=== PATIENT | male | born 1975 | race African-American/Black ===

== ENCOUNTER 2018-09-19 16:39 | Inpatient (IN) | payer OTHER ==
[2018-09-19 18:15] VITALS: BMI 21.4
--- NOTE | 2018-09-19 18:46 | HP ---
COWS - Scale Resting Pulse: 1= [place] 81-100 Sweatin=Flushed/Facial Moisture Restless Observation: 1= Difficult to Sit Still Pupil Size: 0= Normal to Room Light Bone or Joint Aches: 2= Severe Diffuse Aches Runny Nose/ Eye Tearin= Runny Nose/Eyes GI Upset > 30mins: 1= Stomach Cramp Tremor Observation: 2= Slight Tremor Visible Yawning Observation: 2= >3x During Session Anxiety or Irritability: 2=Irritable/Anxious Goose Flesh Skin: 3=Piloerection COWS Score: 18 CIWA Score Nausea/Vomitin-Mild Nausea/No Vomiting Muscle Tremors: 4-Moderate,w/Arms Extend Anxiety: 3 Agitation: 3 Paroxysmal Sweats: 3 Orientation: 0-Oriented Tacttile Disturbances: 0-None Auditory Disturbances: 0-None Visual Disturbances: 0-None Headache: 1-Very Mild CIWA-Ar Total Score: 15 - Admission Criteria OASAS Guidelines: Admission for Medically Managed Detox: Requires at least one of the followin. CIWA greater than 12 2. Seizures within the past 24 hours 3. Delirium tremens within the past 24 hours 4. Hallucinations within the past 24 hours 5. Acute intervention needed for co occurring medical disorder 6. Acute intervention needed for co occurring psychiatric disorder 7. Severe withdrawal that cannot be handled at a lower level of care (continued vomiting, continued diarrhea, abnormal vital signs) requiring intravenous medication and/or fluids 8. Admission ROS S - HPI Chief Complaint: I need to stop and get my life back. Allergies/Adverse Reactions: Allergies Allergy/AdvReac Type Severity Reaction Status Date / Time No Known Allergies Allergy Verified 05/15/16 11:16 History of Present Illness: pt is a 43yrold male with a history of heroin and alcohol dependence seeking detox for treatment. Exam Limitations: No Limitations - Ebola screening Have you traveled outside of the country in the last 21 days: No (N) Have you had contact with anyone from an Ebola affected area: No Have you been sick,other than usual withdrawal symptoms: No Do you have a fever: No - Review of Systems Constitutional: Chills, Diaphoresis, Loss of Appetite, Night Sweats, Changes in sleep EENT: reports: Tearing, Nose Congestion Respiratory: reports: No Symptoms reported Cardiac: reports: Lightheadedness GI: reports: Constipated, Diarrhea, Nausea, Poor Appetite, Poor Fluid Intake : reports: No Symptoms Reported Musculoskeletal: reports: Back Pain Integumentary: reports: Flushing, Sweating Neuro: reports: Tingling, Tremors Endocrine: reports: Excessive Sweating, Flushing, Intolerance to Cold, Intolerance to Heat Hematology: reports: No Symptoms Reported Psychiatric: reports: Judgement Intact, Mood/Affect Appropiate, Orientated x3, Agitated, Anxious Other Systems: Reviewed and Negative Patient History - Patient Medical History Hx Anemia: No Hx Asthma: Yes (albuterol) Hx Chronic Obstructive Pulmonary Disease (COPD): No Hx Cancer: No Hx Cardiac Disorders: No Hx Congestive Heart Failure: No Hx Hypertension: No Hx Hypercholesterolemia: No Hx Pacemaker: No HX Cerebrovascular Accident: No Hx Seizures: No Hx Dementia: No Hx Diabetes: No Hx Gastrointestinal Disorders: No Hx Liver Disease: No Hx Genitourinary Disorders: No Hx Sexually Transmitted Disorders: No Hx Renal Disease (ESRD): No Hx Thyroid Disease: Yes (hyperthryoid - not treated) Hx Human Immunodeficiency Virus (HIV): Yes (not taking any meds ) Hx Hepatitis C: No (negative) Hx Depression: No Hx Suicide Attempt: No (denies) Hx Bipolar Disorder: No Hx Schizophrenia: No - Patient Surgical History Past Surgical History: Yes Hx Appendectomy: Yes (1983) - PPD History Previous Implant?: Yes Documented Results: Negative w/o proof PPD to be Administered?: Yes - Reproductive History Patient is a Female of Child Bearing Age (11 -55 yrs old): No - Smoking Cessation Smoking history: Current every day smoker Have you smoked in the past 12 months: Yes Aproximately how many cigarettes per day: 10 Hx Chewing Tobacco Use: No Initiated information on smoking cessation: Yes 'Breaking Loose' booklet given: 09/19/18 - Substance & Tx. History Hx Alcohol Use: Yes Hx Substance Use: Yes Substance Use Type: Alcohol, Cocaine, Heroin Hx Substance Use Treatment: Yes (last detox [facility] 2monthd ago) - Substances Abused Heroin Route: Inhalation Frequency: Daily Amount used: 10 bags Age of first use: 27 Date of Last Use: 09/18/18 Alcohol Route: Oral Frequency: Daily Amount used: 1-4 pints vodka; 2 40oz beer Age of first use: 10 Date of Last Use: 02/19/19 Family Disease History - Family Disease History Family Disease History: CA: Sister (), Other: Sister Admission Physical Exam [facility] - Vital Signs Vital Signs: Vital Signs - 24 hr 09/19/18 18:12 Temperature 98.7 F Pulse Rate 81 Respiratory 18 Rate Blood Pressure 119/75 - Physical General Appearance: Yes: Appropriately Dressed, Tremorous, Irritable, Sweating, Anxious HEENTM: Yes: Hearing grossly Normal, Normal Voice, Nasal Congestion, Rhinorrhea Respiratory: Yes: Normal Breath Sounds, Rhonchi, Wheezing Neck: Yes: No masses,lesions,Nodules Breast: Yes: Within Normal Limits Cardiology: Yes: Regular Rhythm, Regular Rate, S1, S2 Abdominal: Yes: Normal Bowel Sounds, Non Tender Genitourinary: Yes: Within Normal Limits Back: Yes: Normal Inspection Musculoskeletal: Yes: full range of Motion Extremities: Yes: Normal Capillary Refill, Normal Inspection, Tremors Neurological: Yes: Fully Oriented, Alert, Normal Response Integumentary: Yes: Normal Color, Diaphoresis Lymphatic: Yes: Within Normal Limits - Diagnostic (1) Asthma Current Visit: Yes Status: Chronic Qualifiers: Asthma severity: mild Asthma complication type: uncomplicated (2) Cocaine dependence Current Visit: Yes Status: Chronic Qualifiers: Substance use status: uncomplicated Qualified Code(s): F14.20 - Cocaine dependence, uncomplicated (3) HIV (human immunodeficiency virus infection) Current Visit: Yes Status: Chronic Qualifiers: HIV symptom status: unspecified Qualified Code(s): B20 - Human immunodeficiency virus [HIV] disease Comment: non compliant with medication. last time taken was a month ago (4) Hyperthyroidism Current Visit: No Status: Inactive (5) Nicotine dependence Current Visit: Yes Status: Chronic Qualifiers: Nicotine product type: cigarettes Substance use status: uncomplicated Qualified Code(s): F17.210 - Nicotine dependence, cigarettes, uncomplicated (6) Opioid dependence with withdrawal Current Visit: Yes Status: Chronic Cleared for Admission [facility] - Detox or Rehab [facility] Level of Care: Medically Managed Detox Regimen/Protocol: Methadone/Librium S Breath Alcohol Content Breath Alcohol Content: 0.019 Urine Drug Screen - Results Drug Screen Negative: No Urine Drug Screen Results: THC-Marijuana, KENDRA-Cocaine, OPI-Opiates, BZO- Benzodiazepines, BUP-Suboxone Inpatient Rehab Admission - Rehab Decision to Admit Inpatient rehab admission?: No
[2018-09-19] MEDS ORDERED: MENTHOL/PHENOL 1 EACH UD MM PRN (18:51)
[2018-09-19] MEDS ORDERED: MAGNESIUM CITRATE 300 ML BOTTLE PO PRN (18:51)
[2018-09-19] MEDS ORDERED: MAG HYDROX/AL HYDROX/SIMETH 30 ML UNIT-DOSE CUP PO PRN (18:51)
[2018-09-19] MEDS ORDERED: P-EPHED 60MG/TRIPROLIDI 2.5MG TABLET PO PRN (18:51)
[2018-09-19] MEDS ORDERED: MAGNESIUM HYDROX 2400MG/30ML ORAL SUSPENSION 30 ML CUP PO PRN (18:51)
[2018-09-19] MEDS ORDERED: guaiFENesin/D-METHORPHAN HB 10 ML UNIT-DOSE CUPS PO PRN (18:51)
[2018-09-19] MEDS ORDERED: chlordiazePOXIDE HCL 25 MG CAPSULE PO PRN (18:51)
[2018-09-19] MEDS ORDERED: NICOTINE POLACRILEX 4 MG GUM BC PRN (18:51)
[2018-09-19] MEDS ORDERED: LOPERAMIDE HCL 2 MG CAPSULE PO PRN (18:51)
[2018-09-19] MEDS ORDERED: ALBUTEROL SO4 2.5/IPRATROPIUM 0.5 INH SOL 3 ML VIAL.NEB. NEB ONE (18:53)
[2018-09-19] MEDS: THIAMINE HCL 100 MG TABLET (FP) PO SCH (21:43)
[2018-09-19] MEDS ORDERED: METHADONE HCL 10 MG TABLET (FOR DETOX USE ONLY) PO ONE ×2 (21:45→23:00)
[2018-09-19] MEDS ORDERED: chlordiazePOXIDE HCL 25 MG CAPSULE PO ONE (21:45)
[2018-09-19] MEDS ORDERED: MELATONIN 5 MG TABLETS PO PRN (22:00)
[2018-09-19] MEDS: chlordiazePOXIDE HCL 25 MG CAPSULE PO SCH (22:57)
[2018-09-20] MEDS: hydrOXYzine PAMOATE 50 MG CAPSULE (FP) PO PRN ×2 (01:11→23:30)
[2018-09-20] MEDS: chlordiazePOXIDE HCL 25 MG CAPSULE PO SCH ×4 (05:44→22:15)
[2018-09-20] MEDS ORDERED: METHADONE HCL 10 MG TABLET (FOR DETOX USE ONLY) PO SCH (10:00)
[2018-09-20] MEDS: NICOTINE 21 MG/24 HOURS TOPICAL PATCH TD SCH (10:05)
[2018-09-20] MEDS: PRENATAL VITAMINS W/ FOLIC ACID TABLET (FP) PO SCH (10:05)
[2018-09-20 10:55] LABS: HEMATOCRIT 35.4 % (35.4-49); HEMOGLOBIN 12.2 GM/dL (11.7-16.9); MCH 29.9 pg (25.7-33.7); MCHC 34.3 g/dl (32.0-35.9); MEAN PLT VOLUME 8.3 fl (7.5-11.1); PLATELET COUNT 256 K/MM3 (134-434); RBC 4.07 M/mm3 (4.00-5.60); RDW 15.7 % (11.9-15.9)
[2018-09-20 10:58] LABS: ALBUMIN 3.1 g/dl (3.4-5.0); ALK PHOS 106 U/L (45-117); ANION GAP 8 MMOL/L (8-16); BILIRUBIN,TOTAL 0.2 mg/dL (0.2-1); BLOOD UREA NITROGEN 18 mg/dL (7-18); CALCIUM 8.5 mg/dL (8.5-10.1); CHLORIDE 109 mmol/L (98-107); CO2 27 mmol/L (21-32); GLUCOSE,RANDOM 91 mg/dL (74-106); POTASSIUM 3.7 mmol/L (3.5-5.1); SGOT/AST 13 U/L (15-37); SGPT/ALT 22 U/L (13-61); SODIUM 143 mmol/L (136-145); TOT PROT 6.7 g/dl (6.4-8.2)
[2018-09-20] MEDS ORDERED: GABAPENTIN 100 MG CAPSULE (FP) PO ONE (11:30)
--- NOTE | 2018-09-20 11:41 | PN ---
S CIWA - CIWA Score Nausea/Vomitin-No Nausea/No Vomiting Muscle Tremors: 4-Moderate,w/Arms Extend Anxiety: 4-Mod. Anxious/Guarded Agitation: 4-Moderately Restless Paroxysmal Sweats: 3 Orientation: 0-Oriented Tacttile Disturbances: 0-None Auditory Disturbances: 0-None Visual Disturbances: 0-None Headache: 0-None Present CIWA-Ar Total Score: 15 BHS COWS - Scale Resting Pulse: 1= [place] 81-100 Sweatin=Flushed/Facial Moisture Restless Observation: 1= Difficult to Sit Still Pupil Size: 0= Normal to Room Light Bone or Joint Aches: 2= Severe Diffuse Aches Runny Nose/ Eye Tearin= Nasal Congestion GI Upset > 30mins: 0= None Tremor Observation of Outstretched Hands: 2= Slight Tremor Visible Yawning Observation: 2= >3x During Session Anxiety or Irritability: 2=Irritable/Anxious Goose Flesh Skin: 0=Smooth Skin COWS Score: 13 S Progress Note (SOAP) Subjective: muscle spasm sweats shakes interrupted sleep body aches insomnia Objective: 09/20/18 11:40 Vital Signs Temperature 97.3 F L 09/20/18 09:41 Pulse Rate 95 H 09/20/18 09:41 Respiratory Rate 18 09/20/18 09:41 Blood Pressure 113/65 09/20/18 09:41 O2 Sat by Pulse Oximetry (%) Laboratory Tests 09/20/18 09/20/18 09/20/18 08:00 08:00 08:00 WBC 4.0 RBC 4.07 Hgb 12.2 Hct 35.4 MCV 87.0 MCH 29.9 MCHC 34.3 RDW 15.7 Plt Count 256 D MPV 8.3 Sodium 143 Potassium 3.7 Chloride 109 H Carbon Dioxide 27 Anion Gap 8 BUN 18 Creatinine 1.0 Creat Clearance w eGFR > 60 Random Glucose 91 Calcium 8.5 Total Bilirubin 0.2 AST 13 L ALT 22 Alkaline Phosphatase 106 Total Protein 6.7 Albumin 3.1 L RPR Titer Nonreactive aaox3 ambulating no acute distress Assessment: 09/20/18 11:40 withdrawal sx Plan: continue detox increase fluids trazadone 50mg qhs
[2018-09-20] MEDS: GABAPENTIN 100 MG CAPSULE (FP) PO SCH ×2 (13:33→22:16)
[2018-09-20] MEDS: ALBUTEROL SO4 2.5/IPRATROPIUM 0.5 INH SOL 3 ML VIAL.NEB. NEB PRN ×2 (14:12→20:27)
[2018-09-20] MEDS: IBUPROFEN 400 MG TABLET (FP) PO PRN (17:45)
[2018-09-20] MEDS: THIAMINE HCL 100 MG TABLET (FP) PO SCH (22:15)
[2018-09-21] MEDS: GABAPENTIN 100 MG CAPSULE (FP) PO SCH ×3 (05:40→22:18)
[2018-09-21] MEDS: chlordiazePOXIDE HCL 25 MG CAPSULE PO SCH ×3 (05:40→17:24)
[2018-09-21] MEDS: PRENATAL VITAMINS W/ FOLIC ACID TABLET (FP) PO SCH (10:06)
[2018-09-21] MEDS: METHADONE HCL 5 MG TABLET (FOR DETOX USE ONLY) PO SCH (10:07)
[2018-09-21] MEDS: NICOTINE 21 MG/24 HOURS TOPICAL PATCH TD SCH (10:08)
--- NOTE | 2018-09-21 11:01 | PN ---
[facility] CIWA - CIWA Score Nausea/Vomitin-No Nausea/No Vomiting Muscle Tremors: 3 Anxiety: 3 Agitation: 3 Paroxysmal Sweats: 3 Orientation: 0-Oriented Tacttile Disturbances: 0-None Auditory Disturbances: 0-None Visual Disturbances: 0-None Headache: 0-None Present CIWA-Ar Total Score: 12 BHS COWS - Scale Resting Pulse: 1= [place] 81-100 Sweatin=Flushed/Facial Moisture Restless Observation: 1= Difficult to Sit Still Pupil Size: 0= Normal to Room Light Bone or Joint Aches: 1= Mild Discomfort Runny Nose/ Eye Tearin= None GI Upset > 30mins: 1= Stomach Cramp Tremor Observation of Outstretched Hands: 2= Slight Tremor Visible Yawning Observation: 2= >3x During Session Anxiety or Irritability: 2=Irritable/Anxious Goose Flesh Skin: 0=Smooth Skin COWS Score: 12 S Progress Note (SOAP) Subjective: sweats body aches interrupted sleep Objective: 09/21/18 11:01 Vital Signs Temperature 98.2 F 09/21/18 09:30 Pulse Rate 87 09/21/18 09:30 Respiratory Rate 18 09/21/18 09:30 Blood Pressure 136/85 09/21/18 09:30 O2 Sat by Pulse Oximetry (%) Laboratory Tests 09/20/18 09/20/18 09/20/18 08:00 08:00 08:00 WBC 4.0 RBC 4.07 Hgb 12.2 Hct 35.4 MCV 87.0 MCH 29.9 MCHC 34.3 RDW 15.7 Plt Count 256 D MPV 8.3 Sodium 143 Potassium 3.7 Chloride 109 H Carbon Dioxide 27 Anion Gap 8 BUN 18 Creatinine 1.0 Creat Clearance w eGFR > 60 Random Glucose 91 Calcium 8.5 Total Bilirubin 0.2 AST 13 L ALT 22 Alkaline Phosphatase 106 Total Protein 6.7 Albumin 3.1 L RPR Titer Nonreactive aaox3 ambulating no acute distress Assessment: 09/21/18 11:01 withdrawal sx Plan: continue detox increase fluids
--- NOTE | 2018-09-21 11:33 | CONSULT ---
[facility] Psychiatric Consult - Data Date of interview: 09/21/18 Admission source: [facility] Identifying data: This is a 43 years old male, single father of two, unemployed , homeless, on PA support, with no psychiatric hospitalization history, with a history of heroin, cocaine and alcohol, nicotine dependence, is reporting withdrtawal symptoms and seeking detox for treatment. Substance Abuse History: - Smoking Cessation. Smoking history: Current every day smoker. Have you smoked in the past 12 months: Yes. Aproximately how many cigarettes per day: 10. Hx Chewing Tobacco Use: No. Initiated information on smoking cessation: Yes. 'Breaking Loose' booklet given: 09/19/18. - Substance & Tx. History. Hx Alcohol Use: Yes. Hx Substance Use: Yes. Substance Use Type : Alcohol, Cocaine, Heroin. Hx Substance Use Treatment: Yes (last detox [facility] 2monthd ago). - Substances Abused. Heroin. Route: Inhalation. Frequency: Daily. Amount used: 10 bags. Age of first use: 27. Date of Last Use: . Alcohol. Route: Oral. Frequency: Daily. Amount used: 1-4 pints vodka ; 2 40oz beer. Age of first use: 10. Date of Last Use: 09/19/18 Medical History: Asthma, Hyperthyroidism, HIV+ Psychiatric History: Patient reports history of anxiety and severe insomnia. Reports no psychiatric hospitalization history, reports taking prior to amdiions Seroquel 200mg po qhs, denies suicidal, homicidal history. Physical/Sexual Abuse/Trauma History: Denies Additional Comment: Seroquel 100mg poqd. Seroquel 200mg po qhs Mental Status Exam - Mental Status Exam Alert and Oriented to: Person Cognitive Function: Fair Patient Appearance: Unkempt Mood: Anxious, Irritable Affect: Labile Patient Behavior: Impulsive, Talkative, Cooperative, Agitated Speech Pattern: Excessive Voice Loudness: Mildly Loud Thought Process: Goal Oriented Thought Disorder: Being Controlled Hallucinations: Denies Suicidal Ideation: Denies Homicidal Ideation: Denies Insight/Judgement: Fair Sleep: Difficulty falling asleep Appetite: Weight loss Muscle strength/Tone: Mild Hypertonicity Gait/Station: Normal Additional Comments: Seroquel 100mg poqd. Seroquel 200mg po qhs Psychiatric Findings - Problem List ([place] 1, 2,3) (1) Nicotine dependence Current Visit: Yes Status: Chronic Qualifiers: Nicotine product type: cigarettes Substance use status: uncomplicated Qualified Code(s): F17.210 - Nicotine dependence, cigarettes, uncomplicated (2) Opioid dependence with withdrawal Current Visit: Yes Status: Chronic (3) Asthma Current Visit: Yes Status: Chronic Qualifiers: Asthma severity: mild Asthma complication type: uncomplicated (4) Cocaine dependence Current Visit: Yes Status: Chronic Qualifiers: Substance use status: uncomplicated Qualified Code(s): F14.20 - Cocaine dependence, uncomplicated (5) HIV (human immunodeficiency virus infection) Current Visit: Yes Status: Chronic Qualifiers: HIV symptom status: unspecified Qualified Code(s): B20 - Human immunodeficiency virus [HIV] disease Comment: non compliant with medication. last time taken was a month ago (6) Hyperthyroidism Current Visit: No Status: Inactive - Initial Treatment Plan Initial Treatment Plan: Seroquel 100mg poqd. Seroquel 200mg po qhs
[2018-09-21] MEDS ORDERED: QUEtiapine FUMARATE 100 MG TABLET (FP) PO SCH (12:30)
[2018-09-21] MEDS: QUEtiapine FUMARATE 100 MG TABLET (FP) PO SCH (12:48)
[2018-09-21] MEDS: THIAMINE HCL 100 MG TABLET (FP) PO SCH (22:18)
[2018-09-21] MEDS: chlordiazePOXIDE 5 MG CAPSULE PO SCH (22:18)
[2018-09-21] MEDS: QUEtiapine FUMARATE 200 MG TABLET PO SCH (22:18)
[2018-09-22] MEDS: ALBUTEROL SO4 8 GM HFA INHALER IH PRN ×3 (03:04→22:19)
[2018-09-22] MEDS: chlordiazePOXIDE 5 MG CAPSULE PO SCH ×3 (06:10→18:06)
[2018-09-22] MEDS: GABAPENTIN 100 MG CAPSULE (FP) PO SCH ×3 (06:10→22:19)
[2018-09-22] MEDS: NICOTINE 21 MG/24 HOURS TOPICAL PATCH TD SCH (10:39)
[2018-09-22] MEDS: PRENATAL VITAMINS W/ FOLIC ACID TABLET (FP) PO SCH (10:39)
[2018-09-22] MEDS: METHADONE HCL 5 MG TABLET (FOR DETOX USE ONLY) PO SCH (10:39)
[2018-09-22] MEDS: QUEtiapine FUMARATE 100 MG TABLET (FP) PO SCH (10:39)
--- NOTE | 2018-09-22 11:19 | PN ---
[facility] Progress Note (SOAP) Subjective: sweats I slept so much better agitation Objective: 09/22/18 11:17 Vital Signs Temperature 99.3 F 09/22/18 08:59 Pulse Rate 99 H 09/22/18 08:59 Respiratory Rate 18 09/22/18 08:59 Blood Pressure 126/76 09/22/18 08:59 O2 Sat by Pulse Oximetry (%) aaox3 ambulating no acute distress Assessment: 09/22/18 11:18 mild withdrawal sx Plan: continue detox increase fluids
[2018-09-22] MEDS: IBUPROFEN 400 MG TABLET (FP) PO PRN (13:17)
[2018-09-22] MEDS: ACETAMINOPHEN 325 MG TABLET (FP) PO PRN (14:17)
[2018-09-22] MEDS: ALBUTEROL SO4 2.5/IPRATROPIUM 0.5 INH SOL 3 ML VIAL.NEB. NEB PRN (18:17)
[2018-09-22] MEDS: QUEtiapine FUMARATE 200 MG TABLET PO SCH (22:19)
[2018-09-22] MEDS: chlordiazePOXIDE HCL 10 MG CAPSULE PO SCH (22:19)
[2018-09-22] MEDS: THIAMINE HCL 100 MG TABLET (FP) PO SCH (22:19)
[2018-09-23] MEDS: IBUPROFEN 400 MG TABLET (FP) PO PRN ×2 (04:34→14:19)
[2018-09-23] MEDS: chlordiazePOXIDE HCL 10 MG CAPSULE PO SCH ×3 (05:17→18:03)
[2018-09-23] MEDS: GABAPENTIN 100 MG CAPSULE (FP) PO SCH ×3 (05:17→22:08)
[2018-09-23] MEDS ORDERED: METHADONE HCL 10 MG TABLET (FOR DETOX USE ONLY) PO SCH (10:00)
[2018-09-23] MEDS: QUEtiapine FUMARATE 100 MG TABLET (FP) PO SCH (10:08)
[2018-09-23] MEDS: PRENATAL VITAMINS W/ FOLIC ACID TABLET (FP) PO SCH (10:08)
[2018-09-23] MEDS: NICOTINE 21 MG/24 HOURS TOPICAL PATCH TD SCH (10:09)
[2018-09-23] MEDS: hydrOXYzine PAMOATE 50 MG CAPSULE (FP) PO PRN (13:53)
--- NOTE | 2018-09-23 14:48 | PN ---
[facility] Progress Note (SOAP) Subjective: PT C/O NAUSEA AND VOMITING PREVIOUS SHIFT, NO N/V WITNESSED SO FAR. COUGHING WITH YELLOWISH SPUTUM, TREMORS, NASAL CONGESTION. Objective: Vital Signs (72 hours) 09/20/18 09/21/18 09/21/18 22:24 00:30 06:09 Temperature 97.9 F 98.6 F Pulse Rate 86 86 Respiratory 18 18 20 Rate Blood Pressure 133/91 144/72 09/21/18 09/21/18 09/21/18 09:30 17:35 21:46 Temperature 98.2 F 99.0 F 97.0 F L Pulse Rate 87 103 H 102 H Respiratory 18 16 20 Rate Blood Pressure 136/85 146/81 155/80 09/22/18 09/22/18 09/22/18 00:30 03:43 06:02 Temperature 98.1 F Pulse Rate 106 H Respiratory 18 18 20 Rate Blood Pressure 118/81 09/22/18 09/22/18 09/22/18 08:59 13:48 18:03 Temperature 99.3 F 99.9 F H 97.2 F L Pulse Rate 99 H 104 H 99 H Respiratory 18 20 19 Rate Blood Pressure 126/76 124/64 113/77 09/22/18 09/22/18 09/23/18 20:51 22:00 00:30 Temperature 97.5 F L 97.5 F L Pulse Rate 91 H 91 H Respiratory 19 19 18 Rate Blood Pressure 118/72 118/72 09/23/18 09/23/18 09/23/18 03:30 06:00 10:13 Temperature 100.0 F H 97.9 F Pulse Rate 109 H 95 H Respiratory 18 18 18 Rate Blood Pressure 131/87 123/75 Laboratory Tests 09/20/18 09/20/18 09/20/18 08:00 08:00 08:00 WBC 4.0 RBC 4.07 Hgb 12.2 Hct 35.4 MCV 87.0 MCH 29.9 MCHC 34.3 RDW 15.7 Plt Count 256 D MPV 8.3 Sodium 143 Potassium 3.7 Chloride 109 H Carbon Dioxide 27 Anion Gap 8 BUN 18 Creatinine 1.0 Creat Clearance w eGFR > 60 Random Glucose 91 Calcium 8.5 Total Bilirubin 0.2 AST 13 L ALT 22 Alkaline Phosphatase 106 Total Protein 6.7 Albumin 3.1 L RPR Titer Nonreactive LUNGS:BILATERAL WHEEZE WITH SCATTERED RHONCHI. Assessment: 09/23/18 14:40 WITHDRAWAL SX Plan: CONTINUE DETOX DUONEB NEBULIZER DIRECTED. ROBITUSSIN DIRECTED ZOFRAN SL DIRECTED INCREASE PO FLUIDS RE-EVAL IN A.M
[2018-09-23] MEDS ORDERED: ALBUTEROL SO4 2.5/IPRATROPIUM 0.5 INH SOL 3 ML VIAL.NEB. NEB PRN (14:49)
[2018-09-23] MEDS ORDERED: ONDANSETRON *ODT* 4 MG TABLET SL PRN (14:51)
[2018-09-23] MEDS ORDERED: ALBUTEROL SO4 2.5/IPRATROPIUM 0.5 INH SOL 3 ML VIAL.NEB. NEB SCH (15:00)
[2018-09-23] MEDS: ACETAMINOPHEN 325 MG TABLET (FP) PO PRN (18:04)
[2018-09-23] MEDS: ALBUTEROL SO4 2.5/IPRATROPIUM 0.5 INH SOL 3 ML VIAL.NEB. NEB SCH (18:06)
[2018-09-23] MEDS: QUEtiapine FUMARATE 200 MG TABLET PO SCH (22:08)
[2018-09-23] MEDS: THIAMINE HCL 100 MG TABLET (FP) PO SCH (22:09)
[2018-09-24] MEDS: ALBUTEROL SO4 2.5/IPRATROPIUM 0.5 INH SOL 3 ML VIAL.NEB. NEB SCH ×2 (00:30→10:28)
[2018-09-24] MEDS: IBUPROFEN 400 MG TABLET (FP) PO PRN (02:53)
[2018-09-24] MEDS: hydrOXYzine PAMOATE 50 MG CAPSULE (FP) PO PRN (04:36)
[2018-09-24] MEDS ORDERED: METHADONE HCL 5 MG TABLET (FOR DETOX USE ONLY) PO SCH (06:00)
[2018-09-24] MEDS: GABAPENTIN 100 MG CAPSULE (FP) PO SCH (06:08)
[2018-09-24 10:16] VITALS: BP 130/75; PULSE 104; TEMP 98.1
[2018-09-24] MEDS: NICOTINE 21 MG/24 HOURS TOPICAL PATCH TD SCH (10:28)
[2018-09-24] MEDS: QUEtiapine FUMARATE 100 MG TABLET (FP) PO SCH (10:29)
[2018-09-24] MEDS: PRENATAL VITAMINS W/ FOLIC ACID TABLET (FP) PO SCH (10:29)
--- NOTE | 2018-09-24 13:10 | DS ---
[facility] Detox Discharge Summary Admission Date: 09/19/18 Discharge Date: 09/24/18 - History Present History: Alcohol Dependence, Cocaine Dependence, Opioid Dependence Additional Comments: Patient completed detox successfully and scheduled for discharge today. Patient is A/A/Ox3, in nad, vss, ambulatory. Instructed to follow up with PCP within 1- 2 weeks. Pertinent Past History: Asthma, mild intermittent Hyperthyroidism HIV Nicotine dependence Alcohol dependence Cocaine dependence Opioid dependence - Physical Exam Results Vital Signs: Vital Signs Temperature 98.1 F 09/24/18 10:16 Pulse Rate 104 H 09/24/18 10:16 Respiratory Rate 18 09/24/18 10:16 Blood Pressure 130/75 09/24/18 10:16 O2 Sat by Pulse Oximetry (%) 100 09/22/18 18:47 Pertinent Admission Physical Exam Findings: Withdrawal symptoms Laboratory Tests 09/20/18 09/20/18 09/20/18 08:00 08:00 08:00 WBC 4.0 RBC 4.07 Hgb 12.2 Hct 35.4 MCV 87.0 MCH 29.9 MCHC 34.3 RDW 15.7 Plt Count 256 D MPV 8.3 Sodium 143 Potassium 3.7 Chloride 109 H Carbon Dioxide 27 Anion Gap 8 BUN 18 Creatinine 1.0 Creat Clearance w eGFR > 60 Random Glucose 91 Calcium 8.5 Total Bilirubin 0.2 AST 13 L ALT 22 Alkaline Phosphatase 106 Total Protein 6.7 Albumin 3.1 L RPR Titer Nonreactive Labs reviewed - Treatment Hospital Course: Detox Protocol Followed, Detoxed Safely, Responded well, Discharged Condition Good - Medication Discharge Medications: Ambulatory Orders Albuterol Sulfate Inhaler - [Ventolin Hfa Inhaler -] 2 inh PO Q4H PRN 05/15/16 Emtricitab/Rilpivirine/Tenofov [Complera -] 1 each PO DAILY 05/15/16 Quetiapine Fumarate [Seroquel -] 200 mg PO HS #30 tab 09/21/18 Quetiapine Fumarate [Seroquel] 100 mg PO DAILY #30 tablet 09/21/18 - Diagnosis (1) Alcohol dependence with uncomplicated withdrawal Current Visit: Yes Status: Acute (2) Asthma Current Visit: Yes Status: Chronic Qualifiers: Asthma severity: mild Asthma complication type: uncomplicated (3) Cocaine dependence Current Visit: Yes Status: Chronic Qualifiers: Substance use status: uncomplicated Qualified Code(s): F14.20 - Cocaine dependence, uncomplicated (4) HIV (human immunodeficiency virus infection) Current Visit: Yes Status: Chronic Qualifiers: HIV symptom status: unspecified Qualified Code(s): B20 - Human immunodeficiency virus [HIV] disease (5) Nicotine dependence Current Visit: Yes Status: Chronic Qualifiers: Nicotine product type: cigarettes Substance use status: uncomplicated Qualified Code(s): F17.210 - Nicotine dependence, cigarettes, uncomplicated (6) Opioid dependence with withdrawal Current Visit: Yes Status: Acute (7) Hyperthyroidism Current Visit: Yes Status: Chronic - AMA Did Patient Leave Against Medical Advice: No (Follow up with PCP within 1-2 weeks)
== END 2018-09-24 12:33 | disposition other institution (70) | DRG 773 ==
LOC: YASAS 16:39 → Y6N 20:51
PROVIDERS: ADMIT Surgery; ATTEND Surgery
PROC: HZ2ZZZZ Detoxification Services for Substance Abuse Treatment (ICD-10-PCS; principal; 2018-09-19)
DX: F11.23 Opioid dependence with withdrawal (principal); F10.230 Alcohol dependence with withdrawal, uncomplicated; F14.20 Cocaine dependence, uncomplicated; F17.210 Nicotine dependence, cigarettes, uncomplicated; Z21 Asymptomatic human immunodeficiency virus [HIV] infection status; E05.90 Thyrotoxicosis, unspecified without thyrotoxic crisis or storm; J45.20 Mild intermittent asthma, uncomplicated
CPT/HCPCS: 36415; 80053; 85027; 86593; 94640

== ENCOUNTER 2018-09-24 12:49 | Inpatient (IN) | payer OTHER ==
[2018-09-24] MEDS ORDERED: P-EPHED 60MG/TRIPROLIDI 2.5MG TABLET PO PRN (14:40)
[2018-09-24] MEDS ORDERED: MENTHOL/PHENOL 1 EACH UD MM PRN (14:40)
[2018-09-24] MEDS ORDERED: MAG HYDROX/AL HYDROX/SIMETH 30 ML UNIT-DOSE CUP PO PRN (14:40)
[2018-09-24] MEDS ORDERED: guaiFENesin/D-METHORPHAN HB 10 ML UNIT-DOSE CUPS PO PRN (14:40)
[2018-09-24] MEDS ORDERED: LOPERAMIDE HCL 2 MG CAPSULE PO PRN (14:40)
[2018-09-24] MEDS ORDERED: MAGNESIUM CITRATE 300 ML BOTTLE PO PRN (14:40)
[2018-09-24] MEDS ORDERED: MAGNESIUM HYDROX 2400MG/30ML ORAL SUSPENSION 30 ML CUP PO PRN (14:40)
[2018-09-24] MEDS ORDERED: ACETAMINOPHEN 325 MG TABLET (FP) PO PRN (14:40)
--- NOTE | 2018-09-24 14:40 | HP ---
[facility] Rehab Assess/Revision - Admission History Admitted to Rehab from: [facility] Date of Admission to Rehab: 09/24/2018 - Vital signs Vital Signs: 98.1, 104, 18, 130/75 - Findings Detox History & Physical reviewed: Yes Concur with findings: Yes Inpatient Rehab Admission - Rehab Decision to Admit Inpatient rehab admission?: Yes - Initial Determination Are CD services needed?: No Free of communicable disease: Yes Not in need of hospitalization: Yes - Rehab Admission Criteria Previous failed treatment: Yes Poor recovery environment: Yes Comorbidities: No Lacks judgement: Yes Patient is meeting Inpatient Rehab admission criteria:: Yes
[2018-09-24] MEDS ORDERED: ALBUTEROL SO4 8 GM HFA INHALER IH PRN (14:42)
[2018-09-24] MEDS ORDERED: ALBUTEROL SO4 2.5/IPRATROPIUM 0.5 INH SOL 3 ML VIAL.NEB. NEB PRN (14:42)
[2018-09-24] MEDS ORDERED: ONDANSETRON *ODT* 4 MG TABLET SL PRN (14:43)
[2018-09-24] MEDS ORDERED: cloNIDine HCL 0.1 MG TABLET PO PRN (14:44)
[2018-09-24] MEDS ORDERED: GABAPENTIN 100 MG CAPSULE (FP) PO ONE (15:03)
[2018-09-24] MEDS: hydrOXYzine PAMOATE 50 MG CAPSULE (FP) PO PRN (15:44)
[2018-09-24] MEDS: IBUPROFEN 400 MG TABLET (FP) PO PRN (17:34)
--- NOTE | 2018-09-24 19:11 | PN ---
[facility] Progress Note Note: Psychiatry Attending on-call note : Informed of this patient's transfer from [address] [place] [address]. Asked to enter orders for continuation of quetiapine. Chart reviewed. Dr Cobos's note of 09/21/18 : read. Spoke to Mr Velasquez via telephone. History taken. Patient states that seroquel has been prescribed for insomnia. " I went to detox twice this August and they gave me seroquel ". Mr Velasquez reports recent contact with [facility] and [facility] (detoxification). Denies history of any adverse event from the use of seroquel. " It works well for me ". Side effects/benefits of the drug are reviewed with patient, including potential for metabolic syndrome. In addition to drug-drug interactions with HIV meds (altered mental status, oversedation) and risk of accidental falls. Conversation witnessed by nurse on duty. Medication reconciliation : confirms use of seroquel since 09/21/[address] [place] [address]. Will resume seroquel at the dose of 150 mg po hs. Patient made aware. Agrees. Discussed with referring nurse (telephone).
[2018-09-24] MEDS: QUEtiapine FUMARATE 50 MG TABLET PO SCH (21:08)
[2018-09-24] MEDS: THIAMINE HCL 100 MG TABLET (FP) PO SCH (21:08)
[2018-09-24] MEDS: GABAPENTIN 100 MG CAPSULE (FP) PO SCH (21:08)
[2018-09-24] MEDS ORDERED: MELATONIN 5 MG TABLETS PO PRN (22:00)
[2018-09-25] MEDS: GABAPENTIN 100 MG CAPSULE (FP) PO SCH ×3 (06:27→21:17)
[2018-09-25] MEDS: IBUPROFEN 400 MG TABLET (FP) PO PRN (06:28)
[2018-09-25] MEDS: NICOTINE 21 MG/24 HOURS TOPICAL PATCH TD SCH (09:59)
[2018-09-25] MEDS: PRENATAL VITAMINS W/ FOLIC ACID TABLET (FP) PO SCH (09:59)
[2018-09-25] MEDS: hydrOXYzine PAMOATE 50 MG CAPSULE (FP) PO PRN ×3 (10:00→23:19)
--- NOTE | 2018-09-25 10:08 | CONSULT ---
[facility] Psychiatric Consult - Data Date of interview: 09/25/18 Admission source: [facility] Identifying data: Mr Fernandez is a 43 years old single Black male, father of 2 children, unemployed on SSI, homeless seeking inpatient rehab treatment alcohol and opioid Substance Abuse History: Reports history of alcohol and heroin use. He started drinking alcohol at age 10, consumes 1-4 pints of vodka 7 2x 40ozof beer daily. Last drank on 09/19/18. He started using heroin at age 27, consumes 10 bags daily. Last used on 09/18/18. Refer to addiction counselor's summary for further information Medical History: Signifiacant for bronchial asthma, hyperthyrpoidism, HIV since 1997, legal blindness and history of appendctomy in 1983. Smokes 10 cigarettes daily Psychiatric History: Reports being diagnosed with Bipolar Disorder in 2014 at [facility] and was started on Konopin and Seroquel. Reports receiving outpatient psychiatric services on & off at [facility]. Claims that he was last seen at the clinic approximately 6 months ago and he was prescribed Seroquel 300 mg po HS. Reports that Seroquel 300 mg o HS was prescribed to [facility] while at [facility] a month ago and [facility] detox 2 weeks ago. He was seen by Dr Gudino on 09/21/17 while in detox in this facility and he was prescribed Seroquel 100 mg burdick & 200 mg HS. Denies previous psychiatric hospitalization or suicidal attempt. At present reports doing denies experiencing psychotic, manic or depressive symptoms as well as S/H ideations. However, reports sleeping poorly without medication Physical/Sexual Abuse/Trauma History: Denies history of emotional, physical or sexual abuse as well as DV relationship. No service Additional Comment: Reports history of multiple misdemeanor arrests. Denies being on probation currently. 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 His court date i 09/27/18 Mental Status Exam - Mental Status Exam Alert and Oriented to: Time, Place, Person Cognitive Function: Fair Patient Appearance: Well Groomed Mood: Hopeful, Euthymic Patient Behavior: Cooperative Speech Pattern: Clear Voice Loudness: Normal Thought Process: Intact Thought Disorder: Not Present Hallucinations: Denies Suicidal Ideation: Denies Homicidal Ideation: Denies Insight/Judgement: Fair Sleep: Poorly Appetite: Fair Muscle strength/Tone: Normal Gait/Station: Normal Psychiatric Findings - Problem List ([place] 1, 2,3) (1) Mood disorder Current Visit: Yes Status: Chronic (2) Bipolar disorder Current Visit: Yes Status: Ruled-out (3) Substance induced mood disorder Current Visit: Yes Status: Ruled-out (4) Substance-induced sleep disorder Current Visit: Yes Status: Acute (5) Alcohol dependence Current Visit: Yes Status: Acute (6) Opioid dependence Current Visit: Yes Status: Acute (7) Nicotine dependence Current Visit: Yes Status: Chronic (8) Asthma Current Visit: No Status: Chronic Qualifiers: Asthma severity: mild Asthma complication type: uncomplicated (9) HIV (human immunodeficiency virus infection) Current Visit: No Status: Chronic Qualifiers: HIV symptom status: unspecified Qualified Code(s): B20 - Human immunodeficiency virus [HIV] disease Comment: non compliant with medication. last time taken was a month ago (10) Hyperthyroidism Current Visit: No Status: Chronic - Initial Treatment Plan Initial Treatment Plan: 1) Continue Seroquel 300 mg po HS. 2) Continue inpatient detoxification
[2018-09-25] MEDS ORDERED: hydrOXYzine PAMOATE 25 MG CAPSULE (FP) PO ONE (14:10)
--- NOTE | 2018-09-25 14:39 | PN ---
[facility] Progress Note Note: PT IS A 43 Y/O MALE ADMITTED TO REHAB ON 09/24/28. PT HAS NASAL CONGESTIONS, REPORTS COUGHING(SEE DETOX NOTE 09/23/18). REPORTS NONCOMPLIAT WITH HIS ANTIRETROVIRAL MED-COMPLERA STATING HE WAS HIGH ON FENTANYL AND DOES NOT KNOW HOW HIS MEDICATION DISAPPEARED. ALSO STATES HE WAS ON BACTRIM BUT NO TIME PERIOD INDICATED. PT CONTINUES TO EXHIBIT LOW GRADE FEVER. DENIES NAUSEA/ VOMITING/DIARRHEA. Vital Signs (72 hours) 09/24/18 09/25/18 09/25/18 14:28 00:50 03:30 Temperature 99.6 F Pulse Rate 117 H Respiratory 20 18 18 Rate Blood Pressure 118/61 09/25/18 06:38 Temperature 100.4 F H Pulse Rate 115 H Respiratory 18 Rate Blood Pressure 116/71 LUNGS:BILATERAL WHEEZE WITH RHONCHI NAD LOW GRADE FEVER NASAL CONGESTION PLAN:BACTRIM DS 1 TAB PO BID X 5 DAYS THEN DAILY. INCREASE PO FLUIDS. NEBULIZER TX DIRECTED DO UA TODAY
[2018-09-25] MEDS ORDERED: SULFAMETHOXAZOLE/TRIMETHOPRIM 800MG/160MG D.S. TABLET PO ONE (15:00)
[2018-09-25] MEDS: THIAMINE HCL 100 MG TABLET (FP) PO SCH (21:17)
[2018-09-25] MEDS: QUEtiapine FUMARATE 50 MG TABLET PO SCH (21:17)
[2018-09-25] MEDS: SULFAMETHOXAZOLE/TRIMETHOPRIM 800MG/160MG D.S. TABLET PO SCH (21:17)
[2018-09-25] MEDS: ALBUTEROL SO4 2.5/IPRATROPIUM 0.5 INH SOL 3 ML VIAL.NEB. NEB SCH (21:18)
[2018-09-26 06:44] VITALS: BP 141/69; PULSE 91; TEMP 98.8
[2018-09-26] MEDS: IBUPROFEN 400 MG TABLET (FP) PO PRN (06:54)
[2018-09-26] MEDS: GABAPENTIN 100 MG CAPSULE (FP) PO SCH ×2 (06:54→14:18)
[2018-09-26] MEDS: ALBUTEROL SO4 2.5/IPRATROPIUM 0.5 INH SOL 3 ML VIAL.NEB. NEB SCH ×2 (06:56→14:19)
[2018-09-26] MEDS: SULFAMETHOXAZOLE/TRIMETHOPRIM 800MG/160MG D.S. TABLET PO SCH (10:46)
[2018-09-26] MEDS: PRENATAL VITAMINS W/ FOLIC ACID TABLET (FP) PO SCH (10:46)
[2018-09-26] MEDS: NICOTINE 21 MG/24 HOURS TOPICAL PATCH TD SCH (10:47)
[2018-09-26] MEDS: hydrOXYzine PAMOATE 50 MG CAPSULE (FP) PO PRN (13:13)
--- NOTE | 2018-09-26 17:25 | PN ---
[facility] Progress Note Note: Vital Signs Temperature 98.8 F 09/26/18 06:43 Pulse Rate 91 H 09/26/18 06:43 Respiratory Rate 18 09/26/18 06:43 Blood Pressure 141/69 09/26/18 06:43 O2 Sat by Pulse Oximetry (%) Patient left AMA. AOx3, No suicidal / homicidal ideation. Medically stable. Patient reports he no longer wishes to continue with treatment and has family member he needs to see in the hospital. Patient was educated on the risk of interrupting treatment. Patient to follow up with his primary care provider and attached referrals. If worsening symptoms are present, patient to follow up with the emergency room. Patient verbalizes understanding.
[2018-09-26] MEDS ORDERED: QUEtiapine FUMARATE 300 MG TABLET PO SCH (22:00)
[2018-09-30] MEDS ORDERED: SULFAMETHOXAZOLE/TRIMETHOPRIM 800MG/160MG D.S. TABLET PO SCH (10:00)
== END 2018-09-26 17:43 | disposition left against medical advice (07) | DRG 770 ==
LOC: YASAS 12:49 → Y5N 12:50
PROVIDERS: ADMIT Neuromusculoskeletal Medicine & OMM; ATTEND Neuromusculoskeletal Medicine & OMM
PROC: HZ42ZZZ Group Counseling for Substance Abuse Treatment, Cognitive-Behavioral (ICD-10-PCS; principal; 2018-09-24)
DX: F11.20 Opioid dependence, uncomplicated (principal); F10.20 Alcohol dependence, uncomplicated; F17.210 Nicotine dependence, cigarettes, uncomplicated; F39 Unspecified mood [affective] disorder; F19.24 Other psychoactive substance dependence with psychoactive substance-induced mood disorder; F31.9 Bipolar disorder, unspecified; Z21 Asymptomatic human immunodeficiency virus [HIV] infection status; J45.909 Unspecified asthma, uncomplicated; E05.90 Thyrotoxicosis, unspecified without thyrotoxic crisis or storm; R50.9 Fever, unspecified; R06.02 Shortness of breath; R09.81 Nasal congestion
CPT/HCPCS: 94640

== ENCOUNTER 2019-04-16 22:12 | Inpatient (IN) | payer OTHER ==
[2019-04-17 00:11] VITALS: BMI 20.5
--- NOTE | 2019-04-17 02:58 | PN ---
[facility] CIWA - CIWA Score Nausea/Vomitin-No Nausea/No Vomiting Muscle Tremors: None Anxiety: 3 Agitation: 3 Paroxysmal Sweats: 3 Orientation: 0-Oriented Tacttile Disturbances: 0-None Auditory Disturbances: 0-None Visual Disturbances: 0-None Headache: 3-Moderate CIWA-Ar Total Score: 12 BHS COWS - Scale Resting Pulse: 1= [place] 81-100 Sweatin=Flushed/Facial Moisture Restless Observation: 1= Difficult to Sit Still Pupil Size: 0= Normal to Room Light Bone or Joint Aches: 4=Acute Joint/Muscle Pain Runny Nose/ Eye Tearin= Nasal Congestion GI Upset > 30mins: 2= Nausea/Diarrhea Tremor Observation of Outstretched Hands: 0= None Yawning Observation: 1= 1-2x During Session Anxiety or Irritability: 1=Feels Anxious/Irritable Goose Flesh Skin: 3=Piloerection COWS Score: 16 BHS Progress Note (SOAP) Subjective: HERE FOR ALCOHOL AND HEROIN DETOX. KNOWN TO THIS PROGRAM. LAST HERE 09/2018. DENIES IVDA, SEIZURES D/O, BLACK OUTS,SI/HI/AVH PMHX- LEGALLY BLIND, HIV, ASTHMA PSYCH- DENIES VODKA/ BEER STARTED AGE 10 DRINKING 2 PINTS AND 2 40'S DAILY LAST USE 1 DAY AGO HEROIN STARTED AGE 27 SNIFF 2BUNDLES DAILY LAST USE 1 DAY AGO Objective: 04/17/19 02:55 Vital Signs Temp Pulse Resp 04/17/19 00:08 100.0 F H 86 16 AWAKE, ALERT, MILD DISTRESS, IRRITABLE CV- TACHY LUNGS CTAB SKIN INTACT MOIST UTOX + THC, KENDRA, MOP DAVID-0 Assessment: 04/17/19 02:58 F10.23 F11.23 F12.20 Plan: ADMIT TO DETOX METH/MAYCOL TAPER
[2019-04-17] MEDS ORDERED: MAGNESIUM CITRATE 300 ML BOTTLE PO PRN (02:59)
[2019-04-17] MEDS ORDERED: MENTHOL/PHENOL 1 EACH UD MM PRN (02:59)
[2019-04-17] MEDS ORDERED: cloNIDine HCL 0.1 MG TABLET PO PRN (02:59)
[2019-04-17] MEDS ORDERED: ONDANSETRON *ODT* 4 MG TABLET SL PRN (02:59)
[2019-04-17] MEDS ORDERED: BISMUTH SUBSALICYLATE 524 MG/30 ML UD PO PRN (02:59)
[2019-04-17] MEDS ORDERED: DICYCLOMINE HCL 10 MG CAPSULE PO PRN (02:59)
[2019-04-17] MEDS ORDERED: IBUPROFEN 400 MG TABLET (FP) PO PRN (02:59)
[2019-04-17] MEDS ORDERED: guaiFENesin 200 MG/10 ML 10 ML UNIT-DOSE CUPS PO PRN (02:59)
[2019-04-17] MEDS ORDERED: MAG HYDROX/AL HYDROX/SIMETH 30 ML UNIT-DOSE CUP PO PRN (02:59)
[2019-04-17] MEDS ORDERED: MAGNESIUM HYDROX 2400MG/30ML ORAL SUSPENSION 30 ML CUP PO PRN (02:59)
[2019-04-17] MEDS ORDERED: METHADONE HCL 10 MG TABLET (FOR DETOX USE ONLY) PO ONE (02:59)
[2019-04-17] MEDS ORDERED: P-EPHED 60MG/TRIPROLIDI 2.5MG TABLET PO PRN (02:59)
[2019-04-17] MEDS ORDERED: NALOXONE HCL 0.4 MG/ML VIAL IM PRN (02:59)
[2019-04-17] MEDS ORDERED: ACETAMINOPHEN 325 MG TABLET (FP) PO PRN ×2 (02:59)
[2019-04-17] MEDS: hydrOXYzine PAMOATE 25 MG CAPSULE (FP) PO PRN (03:35)
[2019-04-17] MEDS: chlordiazePOXIDE HCL 25 MG CAPSULE PO PRN ×2 (03:35→14:49)
[2019-04-17] MEDS: chlordiazePOXIDE HCL 25 MG CAPSULE PO SCH ×4 (06:41→22:04)
[2019-04-17 09:59] LABS: HEMATOCRIT 40.4 % (35.4-49); HEMOGLOBIN 13.3 GM/dL (11.7-16.9); MCH 29.2 pg (25.7-33.7); MEAN CELL VOLUME 88.4 fl (80-96); MEAN PLT VOLUME 8.6 fl (7.5-11.1); PLATELET COUNT 312 K/MM3 (134-434); RBC 4.57 M/mm3 (4.00-5.60); RDW 16.1 % (11.9-15.9); WHITE BLOOD COUNT 8.9 K/mm3 (4.0-10.0)
[2019-04-17] MEDS ORDERED: METHADONE HCL 5 MG TABLET (FOR DETOX USE ONLY) PO ONE (10:00)
[2019-04-17 10:25] LABS: ALBUMIN 3.3 g/dl (3.4-5.0); BILIRUBIN,TOTAL 0.4 mg/dL (0.2-1); CALCIUM 9.1 mg/dL (8.5-10.1); CREATININE 0.9 mg/dL (0.55-1.3); POTASSIUM 3.9 mmol/L (3.5-5.1); TOT PROT 7.3 g/dl (6.4-8.2)
[2019-04-17] MEDS: PRENATAL VITAMINS W/ FOLIC ACID TABLET (FP) PO SCH (10:48)
[2019-04-17] MEDS: NICOTINE 14 MG/24 HOURS TOPICAL PATCH TD SCH (10:51)
--- NOTE | 2019-04-17 11:33 | PN ---
S CIWA - CIWA Score Nausea/Vomitin Muscle Tremors: 2 Anxiety: 2 Agitation: 2 Paroxysmal Sweats: No Perspiration Orientation: 0-Oriented Tacttile Disturbances: 1-Very Mild Itch/Numbness Auditory Disturbances: 0-None Visual Disturbances: 0-None Headache: 2-Mild CIWA-Ar Total Score: 11 BHS COWS - Scale Resting Pulse: 1= [place] 81-100 Sweatin= No chills or Flushing Restless Observation: 1= Difficult to Sit Still Pupil Size: 1= Pupils >than Normal Bone or Joint Aches: 2= Severe Diffuse Aches Runny Nose/ Eye Tearin= Nasal Congestion GI Upset > 30mins: 2= Nausea/Diarrhea Tremor Observation of Outstretched Hands: 2= Slight Tremor Visible Yawning Observation: 1= 1-2x During Session Anxiety or Irritability: 2=Irritable/Anxious Goose Flesh Skin: 0=Smooth Skin COWS Score: 13 S Progress Note (SOAP) Subjective: alert,irritable,anxious,interrupted sleep,tremor,pain in the body and back Objective: 04/17/19 11:32 Vital Signs Temperature 98.9 F 04/17/19 09:17 Pulse Rate 86 04/17/19 09:17 Respiratory Rate 18 04/17/19 09:17 Blood Pressure 107/68 04/17/19 09:17 O2 Sat by Pulse Oximetry (%) Laboratory Last Values WBC 8.9 K/mm3 (4.0-10.0) 04/17/19 08:00 RBC 4.57 M/mm3 (4.00-5.60) 04/17/19 08:00 Hgb 13.3 GM/dL (11.7-16.9) 04/17/19 08:00 Hct 40.4 % (35.4-49) 04/17/19 08:00 MCV 88.4 fl (80-96) 04/17/19 08:00 MCH 29.2 pg (25.7-33.7) 04/17/19 08:00 MCHC 33.0 g/dl (32.0-35.9) 04/17/19 08:00 RDW 16.1 % (11.9-15.9) H 04/17/19 08:00 Plt Count 312 K/MM3 (134-434) D 04/17/19 08:00 MPV 8.6 fl (7.5-11.1) 04/17/19 08:00 Sodium 143 mmol/L (136-145) 04/17/19 08:00 Potassium 3.9 mmol/L (3.5-5.1) 04/17/19 08:00 Chloride 108 mmol/L (98-107) H 04/17/19 08:00 Carbon Dioxide 28 mmol/L (21-32) 04/17/19 08:00 Anion Gap 7 MMOL/L (8-16) L 04/17/19 08:00 BUN 14.0 mg/dL (7-18) 04/17/19 08:00 Creatinine 0.9 mg/dL (0.55-1.3) 04/17/19 08:00 Est GFR (CKD-EPI)AfAm 119.13 04/17/19 08:00 Est GFR (CKD-EPI)NonAf 102.79 04/17/19 08:00 Random Glucose 100 mg/dL (74-106) 04/17/19 08:00 Calcium 9.1 mg/dL (8.5-10.1) 04/17/19 08:00 Total Bilirubin 0.4 mg/dL (0.2-1) 04/17/19 08:00 AST 14 U/L (15-37) L 04/17/19 08:00 ALT 19 U/L (13-61) 04/17/19 08:00 Alkaline Phosphatase 95 U/L (45-117) 04/17/19 08:00 Total Protein 7.3 g/dl (6.4-8.2) 04/17/19 08:00 Albumin 3.3 g/dl (3.4-5.0) L 04/17/19 08:00 Assessment: 04/17/19 11:33 withdrawal symptom Plan: cotinue detox methadone and librium regimen
--- NOTE | 2019-04-17 15:14 | HP ---
COWS - Scale Resting Pulse: 1= [place] 81-100 Sweatin= Chills/Flushing Restless Observation: 0= Sits Still Pupil Size: 0= Normal to Room Light Bone or Joint Aches: 1= Mild Discomfort Runny Nose/ Eye Tearin= Nasal Congestion GI Upset > 30mins: 1= Stomach Cramp Tremor Observation: 2= Slight Tremor Visible Yawning Observation: 1= 1-2x During Session Anxiety or Irritability: 2=Irritable/Anxious Goose Flesh Skin: 3=Piloerection COWS Score: 13 CIWA Score Nausea/Vomitin Muscle Tremors: 2 Anxiety: 2 Agitation: 2 Paroxysmal Sweats: No Perspiration Orientation: 0-Oriented Tacttile Disturbances: 1-Very Mild Itch/Numbness Auditory Disturbances: 0-None Visual Disturbances: 0-None Headache: 2-Mild CIWA-Ar Total Score: 11 - Admission Criteria [facility] Guidelines: Admission for Medically Managed Detox: Requires at least one of the followin. CIWA greater than 12 2. Seizures within the past 24 hours 3. Delirium tremens within the past 24 hours 4. Hallucinations within the past 24 hours 5. Acute intervention needed for co occurring medical disorder 6. Acute intervention needed for co occurring psychiatric disorder 7. Severe withdrawal that cannot be handled at a lower level of care (continued vomiting, continued diarrhea, abnormal vital signs) requiring intravenous medication and/or fluids 8. Patient presents the following: CIWA greater than 12 Admission Criteria Met: Admission criteria met Admission ROS [facility] Chief Complaint: alcohol and opiate withdrawal sx Allergies/Adverse Reactions: Allergies Allergy/AdvReac Type Severity Reaction Status Date / Time Fish Containing Products Allergy Swelling Verified 04/17/19 00:05 History of Present Illness: 43 years old male 4th patient [facility], [place], operated by [facility] admission admitted on 04/17/19 for alcohol and opiate withdrawal sx management long history of hiv no treatment at the present time drinking vodka and beers 2 pints daily since age 10 last drank 04/15/19 sniff heroin 2 bags daily since age 27 last use 04/26/19 long history of asthma negative ppd since 09/2018 Exam Limitations: No Limitations - Ebola screening Have you traveled outside of the country in the last 21 days: No (N) Have you had contact with anyone from an Ebola affected area: No Do you have a fever: No - Review of Systems Constitutional: Loss of Appetite, Unintentional Wgt. Loss EENT: reports: No Symptoms Reported Respiratory: reports: No Symptoms reported Cardiac: reports: No Symptoms Reported GI: reports: Nausea, Poor Appetite, Poor Fluid Intake, Abdominal cramping : reports: No Symptoms Reported Musculoskeletal: reports: Back Pain, Joint Pain, Muscle Pain, Neck Pain Integumentary: reports: No Symptoms Reported Neuro: reports: Tingling, Tremors Endocrine: reports: No Symptoms Reported Hematology: reports: No Symptoms Reported Psychiatric: reports: Judgement Intact, Mood/Affect Appropiate, Orientated x3, Anxious, Depressed Other Systems: Reviewed and Negative Patient History - Patient Medical History Hx Anemia: No Hx Asthma: Yes Hx Chronic Obstructive Pulmonary Disease (COPD): No Hx Cancer: No Hx Cardiac Disorders: No Hx Congestive Heart Failure: No Hx Hypertension: No Hx Hypercholesterolemia: No Hx Pacemaker: No HX Cerebrovascular Accident: No Hx Seizures: No Hx Dementia: No Hx Diabetes: No Hx Gastrointestinal Disorders: No Hx Liver Disease: No Hx Genitourinary Disorders: No Hx Sexually Transmitted Disorders: No Hx Renal Disease (ESRD): No Hx Thyroid Disease: Yes (hyperthryoid - not treated) Hx Human Immunodeficiency Virus (HIV): Yes (not taking any meds ) Hx Hepatitis C: No (negative) Hx Depression: Yes Hx Suicide Attempt: No Hx Bipolar Disorder: No Hx Schizophrenia: No - Patient Surgical History Past Surgical History: Yes Hx Neurologic Surgery: No Hx Cataract Extraction: No Hx Cardiac Surgery: No Hx Lung Surgery: No Hx Breast Surgery: No Hx Breast Biopsy: No Hx Abdominal Surgery: No Hx Appendectomy: Yes (1983) Hx Cholecystectomy: No Hx Genitourinary Surgery: No Hx Section: No Hx Orthopedic Surgery: No Anesthesia Reaction: No - PPD History Previous Implant?: Yes Date: 09/21/18 Results: 0mm PPD to be Administered?: No - Reproductive History Patient : No - Smoking Cessation Smoking history: Current every day smoker Have you smoked in the past 12 months: Yes Aproximately how many cigarettes per day: 10 Hx Chewing Tobacco Use: No Initiated information on smoking cessation: Yes 'Breaking Loose' booklet given: 04/17/19 - Substance & Tx. History Hx Alcohol Use: Yes Hx Substance Use: Yes Substance Use Type: Alcohol, Heroin Hx Substance Use Treatment: Yes ([facility]) - Substances abused Alcohol Substance route: Oral Frequency: Daily Amount used: 2 pints of vodka Age of first use: 10 Date of last use: 04/15/19 Heroin Substance route: Inhalation Frequency: Daily Amount used: 2bags/day Age of first use: 27 Date of last use: 04/16/19 Family Disease History - Family Disease History Family Disease History: Diabetes: Father ( ), CA: Sister (), Other: Father, Sister Other Family History: patient hesitates to discuss family history with staff but "father of diabetes" Admission Physical Exam S - Vital Signs Vital Signs: Vital Signs - 24 hr 04/17/19 04/17/19 04/17/19 00:08 03:19 03:30 Temperature 100.0 F H 97.9 F Pulse Rate 86 90 Respiratory 16 18 18 Rate Blood Pressure 123/94 04/17/19 04/17/19 06:34 09:17 Temperature 98 F 98.9 F Pulse Rate 80 86 Respiratory 18 18 Rate Blood Pressure 122/86 107/68 - Physical General Appearance: Yes: No Apparent Distress, Mild Distress, Thin, Tremorous, Irritable, Sweating, Anxious HEENTM: Yes: Within Normal Limits, Normocephalic, Normal Voice Respiratory: Yes: Chest Non-Tender, Lungs Clear, Normal Breath Sounds, No Respiratory Distress, No Accessory Muscle Use Neck: Yes: No masses,lesions,Nodules, Supple, Trachea in good position Breast: Yes: Within Normal Limits, Axillae without masses, Breasts Symetrical, No Discharge, No masses Cardiology: Yes: Regular Rhythm, Regular Rate, S1, S2 Abdominal: Yes: Normal Bowel Sounds, Soft Genitourinary: Yes: Within Normal Limits Back: Yes: Normal Inspection, Muscle Spasm Musculoskeletal: Yes: full range of Motion, Gait Steady, Back pain, Muscle Pain Extremities: Yes: Normal Capillary Refill, Normal Inspection, Normal Range of Motion, Non-Tender, Tremors Neurological: Yes: buffing line set up worker II-XII NML intact, Normal Mood/Affect, Normal Response, Numbness Integumentary: Yes: Normal Color, Warm, Moist Lymphatic: Yes: Within Normal Limits - Diagnostic (1) HIV (human immunodeficiency virus infection) Current Visit: Yes Status: Chronic Qualifiers: HIV symptom status: asymptomatic Qualified Code(s): Z21 - Asymptomatic human immunodeficiency virus [HIV] infection status Comment: non compliant with medication. last time taken was a month ago (2) Opioid dependence with withdrawal Current Visit: Yes Status: Acute (3) Asthma Current Visit: Yes Status: Chronic Qualifiers: Asthma severity: mild Asthma persistence: intermittent Asthma complication type: with status asthmaticus Qualified Code(s): J45.22 - Mild intermittent asthma with status asthmaticus (4) Nicotine dependence Current Visit: Yes Status: Acute Qualifiers: Nicotine product type: cigarettes Substance use status: in withdrawal Qualified Code(s): F17.213 - Nicotine dependence, cigarettes, with withdrawal (5) Hyperthyroidism Current Visit: Yes Status: Chronic (6) Alcohol dependence with uncomplicated withdrawal Current Visit: Yes Status: Acute (7) Substance induced mood disorder Current Visit: Yes Status: Suspected (8) Opioid dependence Current Visit: No Status: Acute (9) Nicotine dependence Current Visit: No Status: Chronic Qualifiers: Nicotine product type: cigarettes Substance use status: in withdrawal Qualified Code(s): F17.213 - Nicotine dependence, cigarettes, with withdrawal Cleared for Admission [facility] - Detox or Rehab [facility] Level of Care: Medically Managed Detox Regimen/Protocol: Methadone/Librium Breathalyzer - Breathalyzer Breathalyzer: 0 Urine Drug Screen - Control Is test valid?: No Inpatient Rehab Admission - Rehab Decision to Admit Inpatient rehab admission?: No - Initial Determination Are CD services needed?: No Free of communicable disease: No Not in need of hospitalization: No - Rehab Admission Criteria Previous failed treatment: No Poor recovery environment: No Comorbidities: No Lacks judgement: No Patient is meeting Inpatient Rehab admission criteria:: No
[2019-04-17] MEDS: THIAMINE HCL 100 MG TABLET (FP) PO SCH (22:04)
[2019-04-17] MEDS: MELATONIN 5 MG TABLETS PO PRN (22:04)
[2019-04-18] MEDS: chlordiazePOXIDE HCL 25 MG CAPSULE PO SCH ×4 (06:35→22:00)
[2019-04-18] MEDS ORDERED: METHADONE HCL 10 MG TABLET (FOR DETOX USE ONLY) ONE (08:19)
[2019-04-18] MEDS ORDERED: METHADONE HCL 5 MG TABLET (FOR DETOX USE ONLY) ONE (08:20)
[2019-04-18] MEDS ORDERED: METHADONE (DETOX) 20 MG, METHADONE (DETOX) 5 MG PO ONE (10:00)
[2019-04-18] MEDS: PRENATAL VITAMINS W/ FOLIC ACID TABLET (FP) PO SCH (10:38)
[2019-04-18] MEDS: NICOTINE POLACRILEX 2 MG GUM BUC PRN (10:40)
[2019-04-18] MEDS: METHOCARBAMOL 500 MG TABLET PO PRN (10:40)
[2019-04-18] MEDS: NICOTINE 14 MG/24 HOURS TOPICAL PATCH TD SCH (10:42)
[2019-04-18] MEDS ORDERED: PNEUMOC 13-VAL CONJ-DIP CRM/PF 0.5 ML DISP.SYRIN IM ONE (12:00)
--- NOTE | 2019-04-18 12:50 | PN ---
S CIWA - CIWA Score Nausea/Vomitin-Mild Nausea/No Vomiting Muscle Tremors: 3 Anxiety: 2 Agitation: 2 Paroxysmal Sweats: 2 Orientation: 0-Oriented Tacttile Disturbances: 0-None Auditory Disturbances: 0-None Visual Disturbances: 0-None Headache: 0-None Present CIWA-Ar Total Score: 10 BHS COWS - Scale Resting Pulse: 0= [place] 80 or Below Sweatin= Chills/Flushing Restless Observation: 1= Difficult to Sit Still Pupil Size: 0= Normal to Room Light Bone or Joint Aches: 1= Mild Discomfort Runny Nose/ Eye Tearin= Nasal Congestion GI Upset > 30mins: 1= Stomach Cramp Tremor Observation of Outstretched Hands: 2= Slight Tremor Visible Yawning Observation: 1= 1-2x During Session Anxiety or Irritability: 2=Irritable/Anxious Goose Flesh Skin: 0=Smooth Skin COWS Score: 10 BHS Progress Note (SOAP) Subjective: long history of depression taking medication can no remember the name of the medication psychiatric referral doing well with librium and methadone less anxious sleep better at night Objective: 04/18/19 13:12 Vital Signs Temperature 96.5 F L 04/18/19 13:11 Pulse Rate 102 H 04/18/19 13:11 Respiratory Rate 20 04/18/19 13:11 Blood Pressure 117/81 04/18/19 13:11 O2 Sat by Pulse Oximetry (%) Laboratory Last Values WBC 8.9 K/mm3 (4.0-10.0) 04/17/19 08:00 RBC 4.57 M/mm3 (4.00-5.60) 04/17/19 08:00 Hgb 13.3 GM/dL (11.7-16.9) 04/17/19 08:00 Hct 40.4 % (35.4-49) 04/17/19 08:00 MCV 88.4 fl (80-96) 04/17/19 08:00 MCH 29.2 pg (25.7-33.7) 04/17/19 08:00 MCHC 33.0 g/dl (32.0-35.9) 04/17/19 08:00 RDW 16.1 % (11.9-15.9) H 04/17/19 08:00 Plt Count 312 K/MM3 (134-434) D 04/17/19 08:00 MPV 8.6 fl (7.5-11.1) 04/17/19 08:00 Sodium 143 mmol/L (136-145) 04/17/19 08:00 Potassium 3.9 mmol/L (3.5-5.1) 04/17/19 08:00 Chloride 108 mmol/L (98-107) H 04/17/19 08:00 Carbon Dioxide 28 mmol/L (21-32) 04/17/19 08:00 Anion Gap 7 MMOL/L (8-16) L 04/17/19 08:00 BUN 14.0 mg/dL (7-18) 04/17/19 08:00 Creatinine 0.9 mg/dL (0.55-1.3) 04/17/19 08:00 Est GFR (CKD-EPI)AfAm 119.13 04/17/19 08:00 Est GFR (CKD-EPI)NonAf 102.79 04/17/19 08:00 Random Glucose 100 mg/dL (74-106) 04/17/19 08:00 Calcium 9.1 mg/dL (8.5-10.1) 04/17/19 08:00 Total Bilirubin 0.4 mg/dL (0.2-1) 04/17/19 08:00 AST 14 U/L (15-37) L 04/17/19 08:00 ALT 19 U/L (13-61) 04/17/19 08:00 Alkaline Phosphatase 95 U/L (45-117) 04/17/19 08:00 Total Protein 7.3 g/dl (6.4-8.2) 04/17/19 08:00 Albumin 3.3 g/dl (3.4-5.0) L 04/17/19 08:00 RPR Titer Nonreactive (NONREACTIVE) 04/17/19 08:00 lab noted Assessment: 04/18/19 13:13 alcohol and opiate withdrawal sx Plan: continue librium and methadone detox
[2019-04-18] MEDS: hydrOXYzine PAMOATE 25 MG CAPSULE (FP) PO PRN ×2 (13:36→19:10)
[2019-04-18] MEDS: chlordiazePOXIDE HCL 25 MG CAPSULE PO PRN (13:36)
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
[2019-04-18] MEDS: QUEtiapine FUMARATE 100 MG TABLET (FP) PO SCH (22:00)
[2019-04-18] MEDS: THIAMINE HCL 100 MG TABLET (FP) PO SCH (22:00)
[2019-04-18] MEDS: MELATONIN 5 MG TABLETS PO PRN (22:00)
[2019-04-19] MEDS ORDERED: chlordiazePOXIDE HCL 10 MG CAPSULE PO PRN
[2019-04-19] MEDS: chlordiazePOXIDE HCL 10 MG CAPSULE PO SCH ×4 (05:59→22:03)
[2019-04-19] MEDS: METHOCARBAMOL 500 MG TABLET PO PRN (06:00)
[2019-04-19] MEDS ORDERED: METHADONE HCL 10 MG TABLET (FOR DETOX USE ONLY) PO ONE (10:00)
--- NOTE | 2019-04-19 10:23 | PN ---
[facility] CIWA - CIWA Score Nausea/Vomitin-Mild Nausea/No Vomiting Muscle Tremors: 2 Anxiety: 3 Agitation: 2 Paroxysmal Sweats: 1-Minimal Palms Moist Orientation: 0-Oriented Tacttile Disturbances: 0-None Auditory Disturbances: 0-None Visual Disturbances: 0-None Headache: 0-None Present CIWA-Ar Total Score: 9 BHS COWS - Scale Resting Pulse: 1= [place] 81-100 Sweatin= Chills/Flushing Restless Observation: 0= Sits Still Pupil Size: 0= Normal to Room Light Bone or Joint Aches: 1= Mild Discomfort Runny Nose/ Eye Tearin= Nasal Congestion GI Upset > 30mins: 1= Stomach Cramp Tremor Observation of Outstretched Hands: 2= Slight Tremor Visible Yawning Observation: 1= 1-2x During Session Anxiety or Irritability: 1=Feels Anxious/Irritable Goose Flesh Skin: 0=Smooth Skin COWS Score: 9 S Progress Note (SOAP) Subjective: doing well with librium and methadone detox regimen seen by psychiatrist treated with seroquel tolerate well less tremor mild anxiety Objective: 04/19/19 10:23 Vital Signs Temperature 97.0 F L 04/19/19 09:27 Pulse Rate 86 04/19/19 09:27 Respiratory Rate 18 04/19/19 09:27 Blood Pressure 120/80 04/19/19 09:27 O2 Sat by Pulse Oximetry (%) Laboratory Last Values WBC 8.9 K/mm3 (4.0-10.0) 04/17/19 08:00 RBC 4.57 M/mm3 (4.00-5.60) 04/17/19 08:00 Hgb 13.3 GM/dL (11.7-16.9) 04/17/19 08:00 Hct 40.4 % (35.4-49) 04/17/19 08:00 MCV 88.4 fl (80-96) 04/17/19 08:00 MCH 29.2 pg (25.7-33.7) 04/17/19 08:00 MCHC 33.0 g/dl (32.0-35.9) 04/17/19 08:00 RDW 16.1 % (11.9-15.9) H 04/17/19 08:00 Plt Count 312 K/MM3 (134-434) D 04/17/19 08:00 MPV 8.6 fl (7.5-11.1) 04/17/19 08:00 Sodium 143 mmol/L (136-145) 04/17/19 08:00 Potassium 3.9 mmol/L (3.5-5.1) 04/17/19 08:00 Chloride 108 mmol/L (98-107) H 04/17/19 08:00 Carbon Dioxide 28 mmol/L (21-32) 04/17/19 08:00 Anion Gap 7 MMOL/L (8-16) L 04/17/19 08:00 BUN 14.0 mg/dL (7-18) 04/17/19 08:00 Creatinine 0.9 mg/dL (0.55-1.3) 04/17/19 08:00 Est GFR (CKD-EPI)AfAm 119.13 04/17/19 08:00 Est GFR (CKD-EPI)NonAf 102.79 04/17/19 08:00 Random Glucose 100 mg/dL (74-106) 04/17/19 08:00 Calcium 9.1 mg/dL (8.5-10.1) 04/17/19 08:00 Total Bilirubin 0.4 mg/dL (0.2-1) 04/17/19 08:00 AST 14 U/L (15-37) L 04/17/19 08:00 ALT 19 U/L (13-61) 04/17/19 08:00 Alkaline Phosphatase 95 U/L (45-117) 04/17/19 08:00 Total Protein 7.3 g/dl (6.4-8.2) 04/17/19 08:00 Albumin 3.3 g/dl (3.4-5.0) L 04/17/19 08:00 RPR Titer Nonreactive (NONREACTIVE) 04/17/19 08:00 lab noted Assessment: 04/19/19 10:23 alcohol and opiate withdrawal sx Plan: continue librium and methadone detox regimen
[2019-04-19] MEDS: PRENATAL VITAMINS W/ FOLIC ACID TABLET (FP) PO SCH (10:31)
[2019-04-19] MEDS: QUEtiapine FUMARATE 100 MG TABLET (FP) PO SCH ×2 (10:31→22:02)
[2019-04-19] MEDS: NICOTINE 14 MG/24 HOURS TOPICAL PATCH TD SCH (10:32)
[2019-04-19] MEDS ORDERED: IBUPROFEN 600 MG TABLET (FP) PO PRN (10:37)
--- NOTE | 2019-04-19 10:42 | PN ---
[facility] Progress Note Note: patient continue asking stronger pain release medication that taking percocet at home for chronic back pain discuss medication assisted treatment program for pain management
[2019-04-19] MEDS: hydrOXYzine PAMOATE 25 MG CAPSULE (FP) PO PRN (13:54)
[2019-04-19] MEDS: IBUPROFEN 600 MG TABLET (FP) PO PRN (15:39)
[2019-04-19] MEDS: ALBUTEROL SO4 8 GM HFA INHALER IH PRN ×2 (16:08→21:24)
[2019-04-19] MEDS: NICOTINE POLACRILEX 2 MG GUM BUC PRN (18:44)
[2019-04-19] MEDS: CYCLOBENZAPRINE HCL 5 MG TABLET PO PRN (20:52)
[2019-04-19] MEDS: THIAMINE HCL 100 MG TABLET (FP) PO SCH (22:01)
[2019-04-19] MEDS: MELATONIN 5 MG TABLETS PO PRN (22:02)
[2019-04-20] MEDS: chlordiazePOXIDE HCL 10 MG CAPSULE PO SCH ×2 (05:23→17:41)
[2019-04-20] MEDS ORDERED: METHADONE HCL 10 MG TABLET (FOR DETOX USE ONLY) ONE (08:21)
[2019-04-20] MEDS ORDERED: METHADONE HCL 5 MG TABLET (FOR DETOX USE ONLY) ONE (08:21)
[2019-04-20] MEDS ORDERED: METHADONE (DETOX) 10 MG, METHADONE (DETOX) 5 MG PO ONE (10:00)
[2019-04-20] MEDS: QUEtiapine FUMARATE 100 MG TABLET (FP) PO SCH ×2 (10:38→22:01)
[2019-04-20] MEDS: PRENATAL VITAMINS W/ FOLIC ACID TABLET (FP) PO SCH (10:38)
[2019-04-20] MEDS: NICOTINE 14 MG/24 HOURS TOPICAL PATCH TD SCH (10:38)
[2019-04-20] MEDS: CYCLOBENZAPRINE HCL 5 MG TABLET PO PRN ×2 (10:38→22:01)
[2019-04-20] MEDS: NICOTINE POLACRILEX 2 MG GUM BUC PRN (10:39)
[2019-04-20] MEDS: IBUPROFEN 600 MG TABLET (FP) PO PRN (14:27)
--- NOTE | 2019-04-20 17:29 | PN ---
S CIWA - CIWA Score Nausea/Vomitin-No Nausea/No Vomiting Muscle Tremors: 2 Anxiety: 3 Agitation: 2 Paroxysmal Sweats: No Perspiration Orientation: 0-Oriented Tacttile Disturbances: 2-Mild Itch/Numbness/Burn Auditory Disturbances: 0-None Visual Disturbances: 1-Very Mild Sensitivity Headache: 0-None Present CIWA-Ar Total Score: 10 BHS COWS - Scale Resting Pulse: 2= [place] 101-120 Sweatin= No chills or Flushing Restless Observation: 1= Difficult to Sit Still Pupil Size: 0= Normal to Room Light Bone or Joint Aches: 2= Severe Diffuse Aches Runny Nose/ Eye Tearin= None GI Upset > 30mins: 0= None Tremor Observation of Outstretched Hands: 2= Slight Tremor Visible Yawning Observation: 1= 1-2x During Session Anxiety or Irritability: 2=Irritable/Anxious Goose Flesh Skin: 0=Smooth Skin COWS Score: 10 S Progress Note (SOAP) Subjective: Body Aches, Anxious, Tremors. Objective: PATIENT A & O X 3, OBSERVED AMBULATING ON DETOX UNIT UNASSISTED. IN NO ACUTE DISTRESS. 04/20/19 17:27 Vital Signs Temperature 96.8 F L 04/20/19 15:00 Pulse Rate 103 H 04/20/19 15:00 Respiratory Rate 18 04/20/19 15:00 Blood Pressure 139/81 04/20/19 15:00 O2 Sat by Pulse Oximetry (%) Laboratory Tests 04/17/19 04/17/19 04/17/19 08:00 08:00 08:00 WBC 8.9 RBC 4.57 Hgb 13.3 Hct 40.4 MCV 88.4 MCH 29.2 MCHC 33.0 RDW 16.1 H Plt Count 312 D MPV 8.6 Sodium 143 Potassium 3.9 Chloride 108 H Carbon Dioxide 28 Anion Gap 7 L BUN 14.0 Creatinine 0.9 Est GFR (CKD-EPI)AfAm 119.13 Est GFR (CKD-EPI)NonAf 102.79 Random Glucose 100 Calcium 9.1 Total Bilirubin 0.4 AST 14 L ALT 19 Alkaline Phosphatase 95 Total Protein 7.3 Albumin 3.3 L RPR Titer Nonreactive LABS NOTED. RESULTS OF X-RAY OF RIGHT HAND DONE EARLIER TODAY (FOR PAIN AND SWELLING OF 5TH DIGIT) PENDING. 04/20/19 17:28 Assessment: 04/20/19 17:28 WITHDRAWAL SYMPTOMS. Plan: CONTINUE DETOX.
[2019-04-20] MEDS: hydrOXYzine PAMOATE 25 MG CAPSULE (FP) PO PRN (18:22)
[2019-04-20] MEDS: THIAMINE HCL 100 MG TABLET (FP) PO SCH (22:01)
[2019-04-20] MEDS: MELATONIN 5 MG TABLETS PO PRN (22:02)
[2019-04-21] MEDS: hydrOXYzine PAMOATE 25 MG CAPSULE (FP) PO PRN (02:48)
[2019-04-21] MEDS ORDERED: chlordiazePOXIDE HCL 10 MG CAPSULE PO ONE (05:00)
[2019-04-21] MEDS ORDERED: METHADONE HCL 10 MG TABLET (FOR DETOX USE ONLY) PO ONE (10:00)
[2019-04-21] MEDS: PRENATAL VITAMINS W/ FOLIC ACID TABLET (FP) PO SCH (10:37)
[2019-04-21] MEDS: QUEtiapine FUMARATE 100 MG TABLET (FP) PO SCH ×2 (10:37→22:22)
[2019-04-21] MEDS: CYCLOBENZAPRINE HCL 5 MG TABLET PO PRN ×2 (10:37→22:22)
[2019-04-21] MEDS: NICOTINE 14 MG/24 HOURS TOPICAL PATCH TD SCH (10:37)
[2019-04-21] MEDS: NICOTINE POLACRILEX 2 MG GUM BUC PRN (10:38)
[2019-04-21] MEDS ORDERED: TRIMETHOBENZAMIDE HCL 200MG/2ML INJ IM PRN (13:37)
--- NOTE | 2019-04-21 13:40 | PN ---
S CIWA - CIWA Score Nausea/Vomitin Muscle Tremors: None Anxiety: 3 Agitation: 0-Normal Activity Paroxysmal Sweats: No Perspiration Orientation: 0-Oriented Tacttile Disturbances: 2-Mild Itch/Numbness/Burn Auditory Disturbances: 0-None Visual Disturbances: 0-None Headache: 0-None Present CIWA-Ar Total Score: 10 BHS COWS - Scale Resting Pulse: 2= [place] 101-120 Sweatin= No chills or Flushing Restless Observation: 0= Sits Still Pupil Size: 0= Normal to Room Light Bone or Joint Aches: 4=Acute Joint/Muscle Pain Runny Nose/ Eye Tearin= None GI Upset > 30mins: 3= Vomiting/Diarrhea Tremor Observation of Outstretched Hands: 0= None Yawning Observation: 1= 1-2x During Session Anxiety or Irritability: 2=Irritable/Anxious Goose Flesh Skin: 0=Smooth Skin COWS Score: 12 BHS Progress Note (SOAP) Subjective: Fatigue, Vomiting, Diarrhea. Objective: PATIENT A & O X 3, OBSERVED AMBULATING ON DETOX UNIT UNASSISTED. IN NO ACUTE DISTRESS. 04/21/19 13:36 Vital Signs Temperature 97.4 F L 04/21/19 13:26 Pulse Rate 101 H 04/21/19 13:26 Respiratory Rate 20 04/21/19 13:26 Blood Pressure 142/88 04/21/19 13:26 O2 Sat by Pulse Oximetry (%) Laboratory Tests 04/17/19 04/17/19 04/17/19 08:00 08:00 08:00 WBC 8.9 RBC 4.57 Hgb 13.3 Hct 40.4 MCV 88.4 MCH 29.2 MCHC 33.0 RDW 16.1 H Plt Count 312 D MPV 8.6 Sodium 143 Potassium 3.9 Chloride 108 H Carbon Dioxide 28 Anion Gap 7 L BUN 14.0 Creatinine 0.9 Est GFR (CKD-EPI)AfAm 119.13 Est GFR (CKD-EPI)NonAf 102.79 Random Glucose 100 Calcium 9.1 Total Bilirubin 0.4 AST 14 L ALT 19 Alkaline Phosphatase 95 Total Protein 7.3 Albumin 3.3 L RPR Titer Nonreactive LABS NOTED. Assessment: 04/21/19 13:36 WITHDRAWAL SYMPTOMS. Plan: CONTINUE DETOX. RESULTS OF X-RAY OF LEFT HAND DONE YESTERDAY NOTED. NO SIGN OF ODALYS CUTE PROCESS NOTED ON REPORT PATIENT ADVISED TO FOLLOW-UP WITH SENIOR OUTSIDE SALES REPRESENTATIVE AFTER DISCHARGE FROM DETOX UNIT FOR FURTHER EVALUATION OF PAIN AND SWELLING OF LEFT HAND. PATIENT VERBALIZED UNDERSTANDING OF RECOMMENDATION. PATIENT SCHEDULED FOR D/C FROM DETOX UNIT TOMORROW.
[2019-04-21] MEDS: ALBUTEROL SO4 8 GM HFA INHALER IH PRN (17:49)
[2019-04-21] MEDS: THIAMINE HCL 100 MG TABLET (FP) PO SCH (22:22)
[2019-04-21] MEDS: IBUPROFEN 600 MG TABLET (FP) PO PRN (22:23)
[2019-04-21] MEDS: MELATONIN 5 MG TABLETS PO PRN (22:24)
[2019-04-22] MEDS: hydrOXYzine PAMOATE 25 MG CAPSULE (FP) PO PRN ×2 (00:20→10:27)
[2019-04-22] MEDS ORDERED: METHADONE HCL 5 MG TABLET (FOR DETOX USE ONLY) PO ONE (06:00)
[2019-04-22 09:13] LABS: PH,URINE 6.5 (5.0-8.0); URINE APPEARANCE CLEAR; URINE BILIRUBIN NEGATIVE (NEGATIVE); URINE COLOR YELLOW; URINE GLUCOSE (UA) NEGATIVE (NEGATIVE); URINE KETONE NEGATIVE (NEGATIVE); URINE LEUK ESTERASE NEGATIVE (NEGATIVE); URINE NITRITE NEGATIVE (NEGATIVE); URINE PROTEIN NEGATIVE (NEGATIVE); URINE UROBILINOGEN 0.2 mg/dL (0.2-1.0)
[2019-04-22 09:26] VITALS: BP 136/84; PULSE 90; TEMP 96.3
[2019-04-22] MEDS: PRENATAL VITAMINS W/ FOLIC ACID TABLET (FP) PO SCH (10:24)
[2019-04-22] MEDS: QUEtiapine FUMARATE 100 MG TABLET (FP) PO SCH (10:24)
[2019-04-22] MEDS: NICOTINE 14 MG/24 HOURS TOPICAL PATCH TD SCH (10:24)
--- NOTE | 2019-04-22 11:57 | DS ---
[facility] Detox Discharge Summary Admission Date: 04/17/19 Discharge Date: 04/22/19 - History Present History: Alcohol Dependence, Opioid Dependence Additional Comments: 43 years old male admitted on 04/17/19 for alcohol and opiate withdrawal sx management did well with librium and methadone detox regimen seen by psychiatrist treated with seroquel tolerate well patient is alert oriented x 3 steady gait coherent speech patient prefers return to infectious disease provider for bp monitoring will bring in lab report for follow up cardiac S1S2 RRR clear lung bilaterally on auscultation abdomen soft no rebound tenderness Pertinent Past History: hiv - Physical Exam Results Vital Signs: Vital Signs Temperature 96.3 F L 04/22/19 09:25 Pulse Rate 90 04/22/19 09:25 Respiratory Rate 20 04/22/19 09:25 Blood Pressure 136/84 04/22/19 09:25 O2 Sat by Pulse Oximetry (%) Pertinent Admission Physical Exam Findings: alcohol and opiate withdrawal sx Laboratory Last Values WBC 8.9 K/mm3 (4.0-10.0) 04/17/19 08:00 RBC 4.57 M/mm3 (4.00-5.60) 04/17/19 08:00 Hgb 13.3 GM/dL (11.7-16.9) 04/17/19 08:00 Hct 40.4 % (35.4-49) 04/17/19 08:00 MCV 88.4 fl (80-96) 04/17/19 08:00 MCH 29.2 pg (25.7-33.7) 04/17/19 08:00 MCHC 33.0 g/dl (32.0-35.9) 04/17/19 08:00 RDW 16.1 % (11.9-15.9) H 04/17/19 08:00 Plt Count 312 K/MM3 (134-434) D 04/17/19 08:00 MPV 8.6 fl (7.5-11.1) 04/17/19 08:00 Sodium 143 mmol/L (136-145) 04/17/19 08:00 Potassium 3.9 mmol/L (3.5-5.1) 04/17/19 08:00 Chloride 108 mmol/L (98-107) H 04/17/19 08:00 Carbon Dioxide 28 mmol/L (21-32) 04/17/19 08:00 Anion Gap 7 MMOL/L (8-16) L 04/17/19 08:00 BUN 14.0 mg/dL (7-18) 04/17/19 08:00 Creatinine 0.9 mg/dL (0.55-1.3) 04/17/19 08:00 Est GFR (CKD-EPI)AfAm 119.13 04/17/19 08:00 Est GFR (CKD-EPI)NonAf 102.79 04/17/19 08:00 Random Glucose 100 mg/dL (74-106) 04/17/19 08:00 Calcium 9.1 mg/dL (8.5-10.1) 04/17/19 08:00 Total Bilirubin 0.4 mg/dL (0.2-1) 04/17/19 08:00 AST 14 U/L (15-37) L 04/17/19 08:00 ALT 19 U/L (13-61) 04/17/19 08:00 Alkaline Phosphatase 95 U/L (45-117) 04/17/19 08:00 Total Protein 7.3 g/dl (6.4-8.2) 04/17/19 08:00 Albumin 3.3 g/dl (3.4-5.0) L 04/17/19 08:00 Urine Color Yellow 04/22/19 07:40 Urine Appearance Clear 04/22/19 07:40 Urine pH 6.5 (5.0-8.0) 04/22/19 07:40 Ur Specific [place] 1.012 (1.010-1.035) 04/22/19 07:40 Urine Protein Negative (NEGATIVE) 04/22/19 07:40 Urine Glucose (UA) Negative (NEGATIVE) 04/22/19 07:40 Urine Ketones Negative (NEGATIVE) 04/22/19 07:40 Urine Blood Negative (NEGATIVE) 04/22/19 07:40 Urine Nitrite Negative (NEGATIVE) 04/22/19 07:40 Urine Bilirubin Negative (NEGATIVE) 04/22/19 07:40 Urine Urobilinogen 0.2 mg/dL (0.2-1.0) 04/22/19 07:40 Ur Leukocyte Esterase Negative (NEGATIVE) 04/22/19 07:40 RPR Titer Nonreactive (NONREACTIVE) 04/17/19 08:00 lab noted - Treatment Hospital Course: Detox Protocol Followed, Detoxed Safely, Responded well, Discharged Condition Good, Rehab Referral Accepted Patient has Accepted a Rehab Referral to: return to hiv provider - Medication Discharge Medications: Ambulatory Orders Emtricitab/Rilpivirine/Tenofov [Complera Tablet -] 1 each PO DAILY 05/15/16 Gabapentin [Neurontin] 100 mg PO TID 09/24/18 Albuterol Sulfate Inhaler - [Ventolin HFA Inhaler -] 2 inh PO Q4H PRN #1 inhaler 04/22/19 Naloxone HCl [Narcan] 4 mg NS ASDIR PRN #1 spray 04/22/19 - Diagnosis (1) HIV (human immunodeficiency virus infection) Current Visit: Yes Status: Chronic Qualifiers: HIV symptom status: asymptomatic Qualified Code(s): Z21 - Asymptomatic human immunodeficiency virus [HIV] infection status (2) Opioid dependence with withdrawal Current Visit: Yes Status: Acute (3) Asthma Current Visit: Yes Status: Chronic Qualifiers: Asthma severity: mild Asthma persistence: intermittent Asthma complication type: with status asthmaticus Qualified Code(s): J45.22 - Mild intermittent asthma with status asthmaticus (4) Nicotine dependence Current Visit: Yes Status: Acute Qualifiers: Nicotine product type: cigarettes Substance use status: in withdrawal Qualified Code(s): F17.213 - Nicotine dependence, cigarettes, with withdrawal (5) Alcohol dependence with uncomplicated withdrawal Current Visit: Yes Status: Acute (6) Substance induced mood disorder Current Visit: Yes Status: Suspected (7) Opioid dependence Current Visit: Yes Status: Acute Qualifiers: Substance use status: uncomplicated Qualified Code(s): F11.20 - Opioid dependence, uncomplicated (8) Nicotine dependence Current Visit: Yes Status: Acute Qualifiers: Nicotine product type: cigarettes Substance use status: in withdrawal Qualified Code(s): F17.213 - Nicotine dependence, cigarettes, with withdrawal - AMA Did Patient Leave Against Medical Advice: No CIWA Score - CIWA Score Nausea/Vomitin-Mild Nausea/No Vomiting Muscle Tremors: None Anxiety: 3 Agitation: 0-Normal Activity Paroxysmal Sweats: No Perspiration Orientation: 0-Oriented Tacttile Disturbances: 1-Very Mild Itch/Numbness Auditory Disturbances: 0-None Visual Disturbances: 0-None Headache: 0-None Present CIWA-Ar Total Score: 5 COWS (PN) - Opiate Withdrawal Resting Pulse: 1= [place] 81-100 Sweatin= Chills/Flushing Restless Observation: 0= Sits Still Pupil Size: 0= Normal to Room Light Bone or Joint Aches: 0= None Runny Nose/ Eye Tearin= None GI Upset > 30mins: 2= Nausea/Diarrhea (no diarrhea) Tremor Observation of Outstretched Hands: 1= Tremor Plato, Not Seen Yawning Observation: 0= None Anxiety or Irritability: 0= None Goose Flesh Skin: 0=Smooth Skin COWS Score: 5
[2019-04-22] MEDS: CYCLOBENZAPRINE HCL 5 MG TABLET PO PRN (12:16)
== END 2019-04-22 12:35 | disposition other institution (70) | DRG 773 ==
LOC: YASAS 22:12 → Y3N 04-17 02:14
PROVIDERS: ADMIT Surgery; ATTEND Surgery
PROC: HZ2ZZZZ Detoxification Services for Substance Abuse Treatment (ICD-10-PCS; principal; 2019-04-17)
DX: F10.230 Alcohol dependence with withdrawal, uncomplicated (principal); F11.23 Opioid dependence with withdrawal; F14.20 Cocaine dependence, uncomplicated; F17.213 Nicotine dependence, cigarettes, with withdrawal; F19.24 Other psychoactive substance dependence with psychoactive substance-induced mood disorder; F32.9 Major depressive disorder, single episode, unspecified; Z21 Asymptomatic human immunodeficiency virus [HIV] infection status; J45.22 Mild intermittent asthma with status asthmaticus; G47.00 Insomnia, unspecified; E05.90 Thyrotoxicosis, unspecified without thyrotoxic crisis or storm; H54.8 Legal blindness, as defined in USA; M79.642 Pain in left hand; M79.89 Other specified soft tissue disorders; Z91.19 Patient's noncompliance with other medical treatment and regimen
CPT/HCPCS: 36415; 73130-TC-LT-FY; 80053; 81003; 85027; 86593

== ENCOUNTER 2019-04-22 12:36 | Inpatient (IN) | payer OTHER ==
[2019-04-22] MEDS ORDERED: LOPERAMIDE HCL 2 MG CAPSULE PO PRN (13:45)
[2019-04-22] MEDS ORDERED: MENTHOL/PHENOL 1 EACH UD MM PRN (13:45)
[2019-04-22] MEDS ORDERED: IBUPROFEN 400 MG TABLET (FP) PO PRN (13:45)
[2019-04-22] MEDS ORDERED: guaiFENesin 200 MG/10 ML 10 ML UNIT-DOSE CUPS PO PRN (13:45)
[2019-04-22] MEDS ORDERED: ACETAMINOPHEN 325 MG TABLET (FP) PO PRN (13:45)
[2019-04-22] MEDS ORDERED: NICOTINE POLACRILEX 2 MG GUM BC PRN (13:45)
[2019-04-22] MEDS ORDERED: MAG HYDROX/AL HYDROX/SIMETH 30 ML UNIT-DOSE CUP PO PRN (13:45)
[2019-04-22] MEDS ORDERED: MAGNESIUM HYDROX 2400MG/30ML ORAL SUSPENSION 30 ML CUP PO PRN (13:45)
[2019-04-22] MEDS ORDERED: MAGNESIUM CITRATE 300 ML BOTTLE PO PRN (13:45)
[2019-04-22] MEDS ORDERED: P-EPHED 60MG/TRIPROLIDI 2.5MG TABLET PO PRN (13:45)
--- NOTE | 2019-04-22 13:45 | HP ---
[facility] Rehab Assess/Revision - Admission History Admitted to Rehab from: [facility] Date of Admission to Rehab: 04/22/19 - Findings Detox History & Physical reviewed: Yes Concur with findings: Yes Comments/Additional Findings: transferred from detox to rehab admission as per protocol Inpatient Rehab Admission - Rehab Decision to Admit Inpatient rehab admission?: Yes - Initial Determination Are CD services needed?: Yes Free of communicable disease: Yes Not in need of hospitalization: Yes - Rehab Admission Criteria Previous failed treatment: Yes Poor recovery environment: Yes Comorbidities: Yes Lacks judgement: Yes Patient is meeting Inpatient Rehab admission criteria:: Yes
[2019-04-22] MEDS ORDERED: ALBUTEROL SO4 8 GM HFA INHALER IH PRN (13:46)
[2019-04-22] MEDS: THIAMINE HCL 100 MG TABLET (FP) PO SCH (21:31)
[2019-04-22] MEDS: QUEtiapine FUMARATE 100 MG TABLET (FP) PO SCH (21:31)
[2019-04-22] MEDS: MELATONIN 5 MG TABLETS PO PRN (21:31)
[2019-04-23] MEDS: QUEtiapine FUMARATE 100 MG TABLET (FP) PO SCH (10:00)
[2019-04-23] MEDS: PRENATAL VITAMINS W/ FOLIC ACID TABLET (FP) PO SCH (10:00)
[2019-04-23] MEDS: NICOTINE 14 MG/24 HOURS TOPICAL PATCH TD SCH (10:02)
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
[2019-04-23] MEDS: THIAMINE HCL 100 MG TABLET (FP) PO SCH (21:15)
[2019-04-23] MEDS: QUEtiapine FUMARATE 50 MG TABLET PO SCH (21:15)
[2019-04-23] MEDS: traZODone HCL 50 MG TABLET (FP) PO SCH (21:16)
[2019-04-24] MEDS: PRENATAL VITAMINS W/ FOLIC ACID TABLET (FP) PO SCH (09:48)
[2019-04-24] MEDS: QUEtiapine FUMARATE 50 MG TABLET PO SCH ×2 (09:48→21:36)
[2019-04-24] MEDS: NICOTINE 14 MG/24 HOURS TOPICAL PATCH TD SCH (09:49)
--- NOTE | 2019-04-24 14:26 | PN ---
S Progress Note (SOAP) Subjective: Patient is requesting gabapentin 300mg TID. He is also requesting his HIV medication, he does not know the name. States he has been on gabapentin for a long time and it was not ordered for him. The pharmacy listed in his chart was contacted by this provider and I was informed that he had not used that pharmacy for > 1 year. The patient provided the name of another pharmacy and I contacted them. I was informed that there were no prescriptions for gabapentin and his last prescription for Bictarvy, his HIV medication was 03/02, greater than a month ago. Objective: Vital Signs (72 hours) 04/22/19 04/23/19 04/23/19 12:40 00:30 03:30 Temperature 98 F Pulse Rate 106 H Respiratory 18 18 18 Rate Blood Pressure 146/91 04/24/19 04/24/19 04/24/19 00:30 03:30 07:26 Temperature 98 F Pulse Rate 105 H Respiratory 18 18 20 Rate Blood Pressure 107/76 04/24/19 10:00 Temperature 98 F Pulse Rate 105 H Respiratory 20 Rate Blood Pressure 107/76 04/24/19 14:26 04/24/19 14:27 Physical: no apparent distress HEENT: normocephalic Neck: supple Lungs: clear Heart: s1 s2 Neuro: Cn 2-12 intact, Assessment: HIV infection, Requesting gabapentin, medical reason unknown. 04/24/19 14:27 Plan: Based on this information, I have no medical reason to order the gabapentin and cannot confirm a history of its use and the reason for the medication. The HIV medication has not been taken by the patient for > 1 month. At this time, he is referred back to his HIV/infection control provider to determine his regimen and prescribe upon discharge.
[2019-04-24] MEDS: THIAMINE HCL 100 MG TABLET (FP) PO SCH (21:36)
[2019-04-24] MEDS: traZODone HCL 50 MG TABLET (FP) PO SCH (21:36)
[2019-04-24] MEDS: MELATONIN 5 MG TABLETS PO PRN (21:36)
[2019-04-25] MEDS: PRENATAL VITAMINS W/ FOLIC ACID TABLET (FP) PO SCH (10:10)
[2019-04-25] MEDS: NICOTINE 14 MG/24 HOURS TOPICAL PATCH TD SCH (10:11)
[2019-04-25] MEDS: QUEtiapine FUMARATE 50 MG TABLET PO SCH ×2 (10:11→21:12)
[2019-04-25] MEDS: MELATONIN 5 MG TABLETS PO PRN (21:12)
[2019-04-25] MEDS: THIAMINE HCL 100 MG TABLET (FP) PO SCH (21:13)
[2019-04-25] MEDS: traZODone HCL 50 MG TABLET (FP) PO SCH (21:13)
[2019-04-26] MEDS: NICOTINE 14 MG/24 HOURS TOPICAL PATCH TD SCH (09:32)
[2019-04-26] MEDS: PRENATAL VITAMINS W/ FOLIC ACID TABLET (FP) PO SCH (09:32)
[2019-04-26] MEDS: QUEtiapine FUMARATE 50 MG TABLET PO SCH ×2 (09:33→21:15)
[2019-04-26] MEDS: THIAMINE HCL 100 MG TABLET (FP) PO SCH (21:15)
[2019-04-26] MEDS: traZODone HCL 50 MG TABLET (FP) PO SCH (21:15)
[2019-04-26] MEDS: MELATONIN 5 MG TABLETS PO PRN (21:15)
[2019-04-27 06:42] VITALS: BP 130/74; PULSE 96; TEMP 98.1
[2019-04-27] MEDS: QUEtiapine FUMARATE 50 MG TABLET PO SCH (10:00)
[2019-04-27] MEDS: PRENATAL VITAMINS W/ FOLIC ACID TABLET (FP) PO SCH (10:00)
[2019-04-27] MEDS: NICOTINE 14 MG/24 HOURS TOPICAL PATCH TD SCH (10:01)
--- NOTE | 2019-04-27 15:44 | DS ---
[facility] Rehab Discharge Summary - [facility] Rehab Discharge Summary Admission Date: 04/22/19 Discharge Date: 04/27/19 - History Present History: Opioid dependence - Discharge Physical Exam Vital Signs: Vital Signs Temperature 98.1 F 04/27/19 06:41 Pulse Rate 96 H 04/27/19 06:41 Respiratory Rate 18 04/27/19 06:41 Blood Pressure 130/74 04/27/19 06:41 O2 Sat by Pulse Oximetry (%) Pertinent Admission Physical Exam Findings: ROS denies opiod cravings, chest pain, sob, fever and dizziness PE alert and oriented x 3 skin warm and dry +perrla,eoms intact bl car s1s2 resp cta bl ext full rom, no tremors amb ad teri - Treatment Discharge Condition: Discharge condition good Hospital Course: Patient requested early discharge from rehab stating he is motivated to maintain sobriety and has accomplished all rehab goals. Patient is medically stable and denies SI/HI. Patient attended all group meetings and is able to identify positive coping mechanisms and triggers. Patient to follow up with [facility] for aftercare and encouraged to attend group meetings to prevent relapse. Patient also medically advised to follow up with PCP for management of medical conditions within one week of discharge. Ambulatory Orders Albuterol Sulfate Inhaler - [Ventolin HFA Inhaler -] 2 inh PO Q4H PRN #1 inhaler 04/22/19 Naloxone HCl [Narcan] 4 mg NS ASDIR PRN #1 spray 04/22/19 Quetiapine Fumarate [Seroquel -] 100 mg PO BID 04/22/19 - Medication Discharge Medications: Ambulatory Orders Albuterol Sulfate Inhaler - [Ventolin HFA Inhaler -] 2 inh PO Q4H PRN #1 inhaler 04/22/19 Naloxone HCl [Narcan] 4 mg NS ASDIR PRN #1 spray 04/22/19 Quetiapine Fumarate [Seroquel -] 100 mg PO BID 04/22/19 - Medication-Assisted Treatment (MAT) Medication-Assisted Treatment (MAT): No MAT Follow-up Referral: Referred to [facility] at [address] [place] [address] - Discharge Instructions Diet, activity, other medical instructions: Diet:reg, as tolerated Activity: as tolerated Other medical instructions: follow up with pcp within one week of discharge - Follow-up Referral Minutes to complete discharge: 30 - AMA Did Patient Leave Against Medical Advice: No
== END 2019-04-27 11:20 | disposition home or self-care (01) | DRG 773 ==
LOC: YASAS 12:36 → Y3W 12:37
PROVIDERS: ADMIT Surgery; ATTEND Surgery
PROC: HZ2ZZZZ Detoxification Services for Substance Abuse Treatment (ICD-10-PCS; principal; 2019-04-22)
DX: F11.23 Opioid dependence with withdrawal (principal); F10.230 Alcohol dependence with withdrawal, uncomplicated; F14.20 Cocaine dependence, uncomplicated; F17.213 Nicotine dependence, cigarettes, with withdrawal; F19.24 Other psychoactive substance dependence with psychoactive substance-induced mood disorder; Z21 Asymptomatic human immunodeficiency virus [HIV] infection status; J45.909 Unspecified asthma, uncomplicated; H54.8 Legal blindness, as defined in USA; E05.90 Thyrotoxicosis, unspecified without thyrotoxic crisis or storm; H35.30 Unspecified macular degeneration; G47.00 Insomnia, unspecified

== ENCOUNTER 2019-05-26 10:42 | Inpatient (IN) | payer OTHER ==
[2019-05-26 12:28] VITALS: BMI 21.5
--- NOTE | 2019-05-26 12:50 | HP ---
COWS - Scale Resting Pulse: 1= [place] 81-100 Sweatin= Chills/Flushing Restless Observation: 1= Difficult to Sit Still Pupil Size: 1= Pupils >than Normal Bone or Joint Aches: 2= Severe Diffuse Aches Runny Nose/ Eye Tearin= Runny Nose/Eyes GI Upset > 30mins: 3= Vomiting/Diarrhea Tremor Observation: 2= Slight Tremor Visible Yawning Observation: 1= 1-2x During Session Anxiety or Irritability: 2=Irritable/Anxious Goose Flesh Skin: 0=Smooth Skin COWS Score: 16 CIWA Score - Admission Criteria [facility]ASAS Guidelines: Admission for Medically Managed Detox: Requires at least one of the followin. CIWA greater than 12 2. Seizures within the past 24 hours 3. Delirium tremens within the past 24 hours 4. Hallucinations within the past 24 hours 5. Acute intervention needed for co occurring medical disorder 6. Acute intervention needed for co occurring psychiatric disorder 7. Severe withdrawal that cannot be handled at a lower level of care (continued vomiting, continued diarrhea, abnormal vital signs) requiring intravenous medication and/or fluids 8. Admitting History and Physical - Admission Chief Complaint: i need help to stop using heroin and alcohol,cocaine History of Present Illness: this 43 years old male with heroin ,alcohol and cocaine dependence seeking detox ,withdrawal symptom, multiple admissions in detox,last [facility] 04/17/19 to 04/22/19 detox,rehab 04/22/19 to 04/27/19 but keep relapsing seen in [place] last night with acute exacerbation of asthma,on prednisone weight loss hiv since since 1997 on medication nicotine dependence 1/2 pack/day refer from [place] for detox longest period of sobriety 8 moths unemployed Limitations to Obtaining History: No Limitations - Past Medical History Pulmonary: Yes: Asthma, Other (asthma) Infectious Disease: Yes: HIV Psych: Yes: Addictions Musculoskeletal: Yes: Other (fx of left wist on splint left wist 05/03/19) - Smoking History Smoking history: Current every day smoker Have you smoked in the past 12 months: Yes Aproximately how many cigarettes per day: 10 - Alcohol/Substance Use Hx Alcohol Use: Yes Admission ROS BHS - HPI Chief Complaint: i need help to stop using heroin,cocaine,alcohol Allergies/Adverse Reactions: Allergies Allergy/AdvReac Type Severity Reaction Status Date / Time Fish Containing Products Allergy Swelling Verified 10/26/19 12:19 History of Present Illness: please see the present illness - Ebola screening Have you traveled outside of the country in the last 21 days: No (N) Have you had contact with anyone from an Ebola affected area: No Do you have a fever: No - Review of Systems Constitutional: Chills, Loss of Appetite, Malaise, Night Sweats, Weakness, Unintentional Wgt. Loss EENT: reports: Tearing, Nose Congestion Respiratory: reports: Other (asthma) Cardiac: reports: No Symptoms Reported GI: reports: Diarrhea, Nausea, Vomiting, Abdominal cramping : reports: No Symptoms Reported Musculoskeletal: reports: Back Pain, Joint Pain, Muscle Pain Integumentary: reports: Dryness Neuro: reports: Headache, Tremors Endocrine: reports: No Symptoms Reported Hematology: reports: No Symptoms Reported, Other (hiv) Psychiatric: reports: No Sypmtoms Reported, Judgement Intact, Mood/Affect Appropiate, Orientated x3 Other Systems: Reviewed and Negative Patient History - Patient Medical History Hx Anemia: No Hx Asthma: Yes (on albuterol inhaler) Hx Chronic Obstructive Pulmonary Disease (COPD): No Hx Cancer: No Hx Cardiac Disorders: No Hx Congestive Heart Failure: No Hx Hypertension: No Hx Hypercholesterolemia: No Hx Pacemaker: No HX Cerebrovascular Accident: No Hx Seizures: No Hx Dementia: No Hx Diabetes: No Hx Gastrointestinal Disorders: No Hx Liver Disease: No Hx Genitourinary Disorders: No Hx Sexually Transmitted Disorders: Yes (HIV since 1997) Hx Renal Disease (ESRD): No Hx Thyroid Disease: Yes (hyperthryoid - not treated) Hx Human Immunodeficiency Virus (HIV): Yes (not taking any meds ) Hx Hepatitis C: No (negative) Hx Depression: Yes Hx Suicide Attempt: Yes (15yrs ago lying on the street) Hx Bipolar Disorder: No Hx Schizophrenia: No Other Medical History: no suicidal,no homicidal,fx of left wrist in 05/03/19 with splint [place] - Patient Surgical History Past Surgical History: Yes Hx Neurologic Surgery: No Hx Cataract Extraction: No Hx Cardiac Surgery: No Hx Lung Surgery: No Hx Breast Surgery: No Hx Breast Biopsy: No Hx Abdominal Surgery: No Hx Appendectomy: Yes (1983) Hx Cholecystectomy: No Hx Genitourinary Surgery: No Hx Section: No Hx Orthopedic Surgery: No Anesthesia Reaction: No - PPD History Previous Implant?: Yes Documented Results: Negative w/proof Implanted On Prior R Admission?: Yes Date: 09/21/18 Results: 0mm PPD to be Administered?: No - Smoking Cessation Smoking history: Current every day smoker Have you smoked in the past 12 months: Yes Aproximately how many cigarettes per day: 10 Hx Chewing Tobacco Use: No Initiated information on smoking cessation: Yes 'Breaking Loose' booklet given: 05/26/19 - Substance & Tx. History Hx Alcohol Use: Yes Hx Substance Use: Yes Substance Use Type: Alcohol, Heroin Hx Substance Use Treatment: Yes ([facility] 04/12/19 to 04/22/19,rehab [facility] 04/22/29 to 04/27/19) - Substances abused Alcohol Substance route: Oral Frequency: Daily Amount used: 2 pints of vodka/ 2 40OZ Age of first use: 10 Date of last use: 05/25/19 Heroin Substance route: Inhalation Frequency: Daily Amount used: 20bags/day Age of first use: 27 Date of last use: 05/25/19 Cocaine Substance route: Smoking Frequency: Daily Amount used: 50$ to 100$ Age of first use: 17 Date of last use: 05/24/19 Admission Physical Exam BHS - Vital Signs Vital Signs: Vital Signs - 24 hr 05/26/19 12:20 Temperature 96.5 F L Pulse Rate 91 H Respiratory 18 Rate Blood Pressure 111/82 - Physical General Appearance: Yes: Moderate Distress, Tremorous, Irritable, Sweating, Anxious HEENTM: Yes: Normal ENT Inspection, RUFINA, Pharynx Normal Respiratory: Yes: Lungs Clear, Normal Breath Sounds, No Respiratory Distress Neck: Yes: Within Normal Limits, Supple, Trachea in good position Breast: Yes: Within Normal Limits Cardiology: Yes: Within Normal Limits, Regular Rhythm, Regular Rate, S1, S2 Abdominal: Yes: Within Normal Limits, Normal Bowel Sounds, Non Tender, Flat, Soft Genitourinary: Yes: Within Normal Limits Back: Yes: Muscle Spasm Musculoskeletal: Yes: full range of Motion, Back pain, Muscle Pain, Other (left wrist splint) Extremities: Yes: Normal Range of Motion, Tremors Neurological: Yes: main entree cook and cashier II-XII NML intact, Fully Oriented, Alert, Motor Strength 5/5 Integumentary: Yes: Dry Lymphatic: Yes: Within Normal Limits - Diagnostic (1) Opioid dependence with withdrawal Current Visit: No Status: Acute (2) Alcohol dependence with uncomplicated withdrawal Current Visit: No Status: Acute (3) Nicotine dependence Current Visit: No Status: Acute Qualifiers: Nicotine product type: cigarettes Substance use status: in withdrawal Qualified Code(s): F17.213 - Nicotine dependence, cigarettes, with withdrawal (4) Asthma Current Visit: No Status: Chronic Qualifiers: Asthma severity: mild Asthma persistence: intermittent Asthma complication type: with status asthmaticus Qualified Code(s): J45.22 - Mild intermittent asthma with status asthmaticus (5) Cocaine dependence Current Visit: No Status: Chronic Qualifiers: Substance use status: uncomplicated Qualified Code(s): F14.20 - Cocaine dependence, uncomplicated (6) HIV (human immunodeficiency virus infection) Current Visit: No Status: Chronic Qualifiers: HIV symptom status: asymptomatic Qualified Code(s): Z21 - Asymptomatic human immunodeficiency virus [HIV] infection status Comment: non compliant with medication. last time taken was a month ago (7) History of bipolar disorder Current Visit: No Status: Chronic (8) Dehydration Current Visit: Yes Status: Acute (9) Fx. left wrist Current Visit: Yes Status: Acute Cleared for Admission S - Detox or Rehab [facility] Level of Care: Medically Managed Detox Regimen/Protocol: Methadone/Librium Breathalyzer - Breathalyzer Breathalyzer: 0 Urine Drug Screen - Test Device Lot number: [id number] Expiration date: 12/29/20 - Control Is test valid?: Yes - Results Drug screen NEGATIVE: No Urine drug screen results: KENDRA-Cocaine, MOP-Opiates, MTD-Methadone Inpatient Rehab Admission - Rehab Decision to Admit Inpatient rehab admission?: No
[2019-05-26] MEDS ORDERED: cloNIDine HCL 0.1 MG TABLET PO PRN (13:07)
[2019-05-26] MEDS ORDERED: MAGNESIUM CITRATE 300 ML BOTTLE PO PRN (13:07)
[2019-05-26] MEDS ORDERED: chlordiazePOXIDE HCL 25 MG CAPSULE PO PRN (13:07)
[2019-05-26] MEDS ORDERED: ACETAMINOPHEN 325 MG TABLET (FP) PO PRN (13:07)
[2019-05-26] MEDS ORDERED: METHADONE HCL 10 MG TABLET (FOR DETOX USE ONLY) PO ONE (13:07)
[2019-05-26] MEDS ORDERED: MELATONIN 5 MG TABLETS PO PRN (13:07)
[2019-05-26] MEDS ORDERED: NICOTINE POLACRILEX 2 MG GUM BUC PRN (13:07)
[2019-05-26] MEDS ORDERED: MENTHOL/PHENOL 1 EACH UD MM PRN (13:07)
[2019-05-26] MEDS ORDERED: MAGNESIUM HYDROX 2400MG/30ML ORAL SUSPENSION 30 ML CUP PO PRN (13:07)
[2019-05-26] MEDS ORDERED: ALBUTEROL SO4 8 GM HFA INHALER IH PRN (13:11)
[2019-05-26] MEDS ORDERED: predniSONE 20 MG TABLET (UD) PO ONE (13:13)
[2019-05-26] MEDS ORDERED: ALBUTEROL SO4 2.5/IPRATROPIUM 0.5 INH SOL 3 ML VIAL.NEB. NEB PRN (13:19)
[2019-05-26] MEDS: IBUPROFEN 400 MG TABLET (FP) PO PRN (14:07)
[2019-05-26] MEDS: NICOTINE 21 MG/24 HOURS TOPICAL PATCH TD SCH (14:09)
[2019-05-26] MEDS: ACETAMINOPHEN 325 MG TABLET (FP) PO PRN (15:55)
[2019-05-26] MEDS: chlordiazePOXIDE HCL 25 MG CAPSULE PO SCH ×2 (17:02→22:20)
[2019-05-26] MEDS ORDERED: LOPERAMIDE HCL 2 MG CAPSULE PO PRN (19:42)
[2019-05-26] MEDS: BISMUTH SUBSALICYLATE 524 MG/30 ML UD PO PRN ×2 (19:42→22:20)
[2019-05-26] MEDS: THIAMINE HCL 100 MG TABLET (FP) PO SCH (21:54)
[2019-05-26] MEDS: traZODone HCL 100 MG TABLET (FP) PO SCH (21:54)
[2019-05-26] MEDS: DIPHENOXYLATE 2.5/ATROPINE.025 1 COMBO TABLET PO PRN (23:21)
[2019-05-27] MEDS: chlordiazePOXIDE HCL 25 MG CAPSULE PO SCH ×4 (05:58→22:26)
--- NOTE | 2019-05-27 08:49 | PN ---
[facility] CIWA - CIWA Score Nausea/Vomitin Muscle Tremors: 2 Anxiety: 3 Agitation: 3 Paroxysmal Sweats: No Perspiration Orientation: 0-Oriented Tacttile Disturbances: 1-Very Mild Itch/Numbness Auditory Disturbances: 0-None Visual Disturbances: 0-None Headache: 2-Mild CIWA-Ar Total Score: 14 [facility] COWS - Scale Resting Pulse: 1= ID 81-100 Sweatin= Chills/Flushing Restless Observation: 1= Difficult to Sit Still Pupil Size: 1= Pupils >than Normal Bone or Joint Aches: 2= Severe Diffuse Aches Runny Nose/ Eye Tearin= Runny Nose/Eyes GI Upset > 30mins: 3= Vomiting/Diarrhea Tremor Observation of Outstretched Hands: 2= Slight Tremor Visible Yawning Observation: 1= 1-2x During Session Anxiety or Irritability: 2=Irritable/Anxious Goose Flesh Skin: 0=Smooth Skin (addendum this cow and ciwa score belong to this patient on the day of admision on 05/26/19) COWS Score: 16
--- NOTE | 2019-05-27 08:58 | PN ---
[facility] Progress Note Note: addendum the cow and ciwa scores document on 05/17/19 at 8,42 am is for this patient on admission 05/26/19
[2019-05-27] MEDS ORDERED: METHADONE HCL 10 MG TABLET (FOR DETOX USE ONLY) ONE (09:20)
[2019-05-27] MEDS ORDERED: METHADONE HCL 5 MG TABLET (FOR DETOX USE ONLY) ONE (09:21)
[2019-05-27] MEDS ORDERED: PATIENT'S OWN MEDICATION (NON-FORMULARY) (Bictegrav/Emtricit/Tenofov Ala 1 EACH) PO SCH (10:00)
[2019-05-27] MEDS ORDERED: predniSONE 10 MG TABLET (UD) PO ONE (10:00)
[2019-05-27] MEDS ORDERED: METHADONE (DETOX) 20 MG, METHADONE (DETOX) 5 MG PO ONE (10:00)
[2019-05-27 10:08] LABS: HEMATOCRIT 37.2 % (35.4-49); HEMOGLOBIN 12.3 GM/dL (11.7-16.9); MCH 28.7 pg (25.7-33.7); MEAN PLT VOLUME 8.5 fl (7.5-11.1); PLATELET COUNT 278 K/MM3 (134-434); RBC 4.28 M/mm3 (4.00-5.60); RDW 16.2 % (11.9-15.9); WHITE BLOOD COUNT 6.9 K/mm3 (4.0-10.0)
[2019-05-27 10:19] LABS: ALBUMIN 3.6 g/dl (3.4-5.0); BILIRUBIN,TOTAL 0.1 mg/dL (0.2-1); BLOOD UREA NITROGEN 12.9 mg/dL (7-18); POTASSIUM 3.8 mmol/L (3.5-5.1); TOT PROT 7.5 g/dl (6.4-8.2)
[2019-05-27] MEDS: PRENATAL VITAMINS W/ FOLIC ACID TABLET (FP) PO SCH (10:21)
[2019-05-27] MEDS: BICTEGRAV/EMTRICIT/TENOFOV (BIKTARVY) 50-200-25 MG TABLET PO SCH (10:21)
--- NOTE | 2019-05-27 10:58 | PN ---
[facility] CIWA - CIWA Score Nausea/Vomitin-Mild Nausea/No Vomiting Muscle Tremors: 4-Moderate,w/Arms Extend Anxiety: 3 Agitation: 2 Paroxysmal Sweats: 1-Minimal Palms Moist Orientation: 0-Oriented Tacttile Disturbances: 1-Very Mild Itch/Numbness Auditory Disturbances: 0-None Visual Disturbances: 0-None Headache: 1-Very Mild CIWA-Ar Total Score: 13 [facility] COWS - Scale Resting Pulse: 0= [place] 80 or Below Sweatin= Chills/Flushing Restless Observation: 0= Sits Still Pupil Size: 0= Normal to Room Light Bone or Joint Aches: 1= Mild Discomfort Runny Nose/ Eye Tearin= Nasal Congestion GI Upset > 30mins: 2= Nausea/Diarrhea (no diarrhea) Tremor Observation of Outstretched Hands: 2= Slight Tremor Visible Yawning Observation: 1= 1-2x During Session Anxiety or Irritability: 2=Irritable/Anxious Goose Flesh Skin: 3=Piloerection COWS Score: 13 S Progress Note (SOAP) Subjective: 43 years old male admitted on 05/26/19 for alcohol and opiate withdrawal sx management treated with librium and methadone detox regimen tolerated well at this time long history of asthma and cigarette smoking prednison aleja Objective: 05/27/19 10:59 Vital Signs Temperature 98.1 F 05/27/19 09:12 Pulse Rate 79 05/27/19 09:12 Respiratory Rate 18 05/27/19 09:12 Blood Pressure 121/71 05/27/19 09:12 O2 Sat by Pulse Oximetry (%) Laboratory Last Values WBC 6.9 K/mm3 (4.0-10.0) 05/27/19 07:40 RBC 4.28 M/mm3 (4.00-5.60) 05/27/19 07:40 Hgb 12.3 GM/dL (11.7-16.9) 05/27/19 07:40 Hct 37.2 % (35.4-49) 05/27/19 07:40 MCV 87.0 fl (80-96) 05/27/19 07:40 MCH 28.7 pg (25.7-33.7) 05/27/19 07:40 MCHC 33.0 g/dl (32.0-35.9) 05/27/19 07:40 RDW 16.2 % (11.9-15.9) H 05/27/19 07:40 Plt Count 278 K/MM3 (134-434) 05/27/19 07:40 MPV 8.5 fl (7.5-11.1) 05/27/19 07:40 Sodium 139 mmol/L (136-145) 05/27/19 07:40 Potassium 3.8 mmol/L (3.5-5.1) 05/27/19 07:40 Chloride 105 mmol/L (98-107) 05/27/19 07:40 Carbon Dioxide 26 mmol/L (21-32) 05/27/19 07:40 Anion Gap 8 MMOL/L (8-16) 05/27/19 07:40 BUN 12.9 mg/dL (7-18) 05/27/19 07:40 Creatinine 1.0 mg/dL (0.55-1.3) 05/27/19 07:40 Est GFR (CKD-EPI)AfAm 104.88 05/27/19 07:40 Est GFR (CKD-EPI)NonAf 90.49 05/27/19 07:40 Random Glucose 85 mg/dL (74-106) 05/27/19 07:40 Calcium 9.0 mg/dL (8.5-10.1) 05/27/19 07:40 Total Bilirubin 0.1 mg/dL (0.2-1) L 05/27/19 07:40 AST 9 U/L (15-37) L 05/27/19 07:40 ALT 17 U/L (13-61) 05/27/19 07:40 Alkaline Phosphatase 122 U/L (45-117) H 05/27/19 07:40 Total Protein 7.5 g/dl (6.4-8.2) 05/27/19 07:40 Albumin 3.6 g/dl (3.4-5.0) 05/27/19 07:40 lab noted Assessment: 05/27/19 10:59 alcohol and opiate withdrawal sx 05/27/19 11:00 discuss medication assisted treatment program Plan: continue librium and methadone detox regimen
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
[2019-05-27] MEDS: NICOTINE 21 MG/24 HOURS TOPICAL PATCH TD SCH (11:14)
[2019-05-27] MEDS: MAG HYDROX/AL HYDROX/SIMETH 30 ML UNIT-DOSE CUP PO PRN ×2 (11:48→17:13)
[2019-05-27] MEDS: hydrOXYzine PAMOATE 25 MG CAPSULE (FP) PO PRN (13:15)
[2019-05-27] MEDS: QUEtiapine FUMARATE 100 MG TABLET (FP) PO SCH ×2 (13:18→22:26)
[2019-05-27] MEDS: METHOCARBAMOL 500 MG TABLET PO PRN ×2 (13:23→18:41)
[2019-05-27] MEDS: IBUPROFEN 400 MG TABLET (FP) PO PRN (13:24)
[2019-05-27] MEDS: DIPHENOXYLATE 2.5/ATROPINE.025 1 COMBO TABLET PO PRN (19:13)
[2019-05-27] MEDS: ONDANSETRON *ODT* 4 MG TABLET SL PRN (20:00)
[2019-05-27] MEDS ORDERED: TRIMETHOBENZAMIDE HCL 200MG/2ML INJ IM PRN (21:42)
[2019-05-27] MEDS: THIAMINE HCL 100 MG TABLET (FP) PO SCH (22:26)
[2019-05-27] MEDS: traZODone HCL 100 MG TABLET (FP) PO SCH (22:26)
[2019-05-28] MEDS: hydrOXYzine PAMOATE 25 MG CAPSULE (FP) PO PRN (02:09)
[2019-05-28] MEDS: chlordiazePOXIDE HCL 25 MG CAPSULE PO SCH ×4 (04:18→22:12)
[2019-05-28] MEDS: DIPHENOXYLATE 2.5/ATROPINE.025 1 COMBO TABLET PO PRN ×2 (08:06→19:29)
[2019-05-28] MEDS ORDERED: QUEtiapine FUMARATE 50 MG TABLET ONE (08:56)
[2019-05-28] MEDS ORDERED: predniSONE 20 MG TABLET (UD) PO ONE (10:00)
[2019-05-28] MEDS ORDERED: METHADONE HCL 10 MG TABLET (FOR DETOX USE ONLY) PO ONE (10:00)
[2019-05-28] MEDS: PRENATAL VITAMINS W/ FOLIC ACID TABLET (FP) PO SCH (10:19)
[2019-05-28] MEDS: BICTEGRAV/EMTRICIT/TENOFOV (BIKTARVY) 50-200-25 MG TABLET PO SCH (10:19)
[2019-05-28] MEDS: NICOTINE 21 MG/24 HOURS TOPICAL PATCH TD SCH (10:19)
[2019-05-28] MEDS: QUEtiapine FUMARATE 100 MG TABLET (FP) PO SCH ×2 (10:19→22:12)
[2019-05-28] MEDS ORDERED: ONDANSETRON *ODT* 4 MG TABLET SL ONE ×2 (11:14→11:30)
--- NOTE | 2019-05-28 11:18 | PN ---
[facility] CIWA - CIWA Score Nausea/Vomitin (last vomiting 05/27 after dinner) Muscle Tremors: 3 Anxiety: 2 Agitation: 1-Slight > Activity Paroxysmal Sweats: 1-Minimal Palms Moist Orientation: 1-Uncertain about Date (date of week) Tacttile Disturbances: 0-None Auditory Disturbances: 1-Very Mild Visual Disturbances: 0-None Headache: 0-None Present CIWA-Ar Total Score: 11 S COWS - Scale Resting Pulse: 1= [place] 81-100 Sweatin= Chills/Flushing Restless Observation: 0= Sits Still Pupil Size: 1= Pupils >than Normal Bone or Joint Aches: 1= Mild Discomfort Runny Nose/ Eye Tearin= Nasal Congestion GI Upset > 30mins: 3= Vomiting/Diarrhea (last vomiting 05/27/19 after dinner) Tremor Observation of Outstretched Hands: 2= Slight Tremor Visible Yawning Observation: 0= None Anxiety or Irritability: 1=Feels Anxious/Irritable Goose Flesh Skin: 0=Smooth Skin COWS Score: 11 [facility] Progress Note (SOAP) Subjective: 43 years old male admitted on 05/26/19 for alcohol and opiate withdrawal sx management treated with librium detox regimen c/o GI distress from prednison continue pepcid carafate x 1 at 1400 pm Objective: 05/28/19 11:23 Vital Signs Temperature 99.0 F 05/28/19 09:10 Pulse Rate 85 05/28/19 09:10 Respiratory Rate 18 05/28/19 09:10 Blood Pressure 125/81 05/28/19 09:10 O2 Sat by Pulse Oximetry (%) Laboratory Last Values WBC 6.9 K/mm3 (4.0-10.0) 05/27/19 07:40 RBC 4.28 M/mm3 (4.00-5.60) 05/27/19 07:40 Hgb 12.3 GM/dL (11.7-16.9) 05/27/19 07:40 Hct 37.2 % (35.4-49) 05/27/19 07:40 MCV 87.0 fl (80-96) 05/27/19 07:40 MCH 28.7 pg (25.7-33.7) 05/27/19 07:40 MCHC 33.0 g/dl (32.0-35.9) 05/27/19 07:40 RDW 16.2 % (11.9-15.9) H 05/27/19 07:40 Plt Count 278 K/MM3 (134-434) 05/27/19 07:40 MPV 8.5 fl (7.5-11.1) 05/27/19 07:40 Sodium 139 mmol/L (136-145) 05/27/19 07:40 Potassium 3.8 mmol/L (3.5-5.1) 05/27/19 07:40 Chloride 105 mmol/L (98-107) 05/27/19 07:40 Carbon Dioxide 26 mmol/L (21-32) 05/27/19 07:40 Anion Gap 8 MMOL/L (8-16) 05/27/19 07:40 BUN 12.9 mg/dL (7-18) 05/27/19 07:40 Creatinine 1.0 mg/dL (0.55-1.3) 05/27/19 07:40 Est GFR (CKD-EPI)AfAm 104.88 05/27/19 07:40 Est GFR (CKD-EPI)NonAf 90.49 05/27/19 07:40 Random Glucose 85 mg/dL (74-106) 05/27/19 07:40 Calcium 9.0 mg/dL (8.5-10.1) 05/27/19 07:40 Total Bilirubin 0.1 mg/dL (0.2-1) L 05/27/19 07:40 AST 9 U/L (15-37) L 05/27/19 07:40 ALT 17 U/L (13-61) 05/27/19 07:40 Alkaline Phosphatase 122 U/L (45-117) H 05/27/19 07:40 Total Protein 7.5 g/dl (6.4-8.2) 05/27/19 07:40 Albumin 3.6 g/dl (3.4-5.0) 05/27/19 07:40 RPR Titer Nonreactive (NONREACTIVE) 05/27/19 07:40 lab noted Assessment: 05/28/19 11:23 alcohol and opiate withdrawal sx Plan: continue librium and methadone detox regimen
[2019-05-28] MEDS: FAMOTIDINE 20 MG TABLET PO SCH ×2 (12:49→22:12)
[2019-05-28] MEDS ORDERED: SUCRALFATE 1 GM TABLET (FP) PO ONE (14:00)
[2019-05-28] MEDS: ONDANSETRON *ODT* 4 MG TABLET SL PRN (19:29)
[2019-05-28] MEDS: ACETAMINOPHEN 325 MG TABLET (FP) PO PRN (19:31)
[2019-05-28] MEDS: THIAMINE HCL 100 MG TABLET (FP) PO SCH (22:12)
[2019-05-28] MEDS: traZODone HCL 100 MG TABLET (FP) PO SCH (22:12)
[2019-05-29] MEDS ORDERED: chlordiazePOXIDE HCL 10 MG CAPSULE PO PRN
[2019-05-29 06:16] VITALS: PULSE 79
[2019-05-29] MEDS: chlordiazePOXIDE HCL 10 MG CAPSULE PO SCH ×2 (06:23→10:01)
--- NOTE | 2019-05-29 08:54 | DS ---
[facility] Detox Discharge Summary Admission Date: 05/26/19 Discharge Date: 05/29/19 - History Present History: Alcohol Dependence, Opioid Dependence Additional Comments: 43 years old male admitted on 05/26/19 for alcohol and opiate withdrawal sx management treated with librium and methadone detox regimen patient tolerate well patient is alert oriented x 3 respiratory clear lung bilaterally on auscultation extremities left forearm full cast with acebandage fingers brisk capillary refilled warm full range of motion skin warm and dry patient has 11 am orthopedic appointment at [facility] - Physical Exam Results Vital Signs: Vital Signs Temperature 98.1 F 05/29/19 06:15 Pulse Rate 79 05/29/19 06:15 Respiratory Rate 18 05/29/19 08:45 Blood Pressure 99/53 L 05/29/19 06:15 O2 Sat by Pulse Oximetry (%) Pertinent Admission Physical Exam Findings: alcohol and opiate withdrawal sx Laboratory Last Values WBC 6.9 K/mm3 (4.0-10.0) 05/27/19 07:40 RBC 4.28 M/mm3 (4.00-5.60) 05/27/19 07:40 Hgb 12.3 GM/dL (11.7-16.9) 05/27/19 07:40 Hct 37.2 % (35.4-49) 05/27/19 07:40 MCV 87.0 fl (80-96) 05/27/19 07:40 MCH 28.7 pg (25.7-33.7) 05/27/19 07:40 MCHC 33.0 g/dl (32.0-35.9) 05/27/19 07:40 RDW 16.2 % (11.9-15.9) H 05/27/19 07:40 Plt Count 278 K/MM3 (134-434) 05/27/19 07:40 MPV 8.5 fl (7.5-11.1) 05/27/19 07:40 Sodium 139 mmol/L (136-145) 05/27/19 07:40 Potassium 3.8 mmol/L (3.5-5.1) 05/27/19 07:40 Chloride 105 mmol/L (98-107) 05/27/19 07:40 Carbon Dioxide 26 mmol/L (21-32) 05/27/19 07:40 Anion Gap 8 MMOL/L (8-16) 05/27/19 07:40 BUN 12.9 mg/dL (7-18) 05/27/19 07:40 Creatinine 1.0 mg/dL (0.55-1.3) 05/27/19 07:40 Est GFR (CKD-EPI)AfAm 104.88 05/27/19 07:40 Est GFR (CKD-EPI)NonAf 90.49 05/27/19 07:40 Random Glucose 85 mg/dL (74-106) 05/27/19 07:40 Calcium 9.0 mg/dL (8.5-10.1) 05/27/19 07:40 Total Bilirubin 0.1 mg/dL (0.2-1) L 05/27/19 07:40 AST 9 U/L (15-37) L 05/27/19 07:40 ALT 17 U/L (13-61) 05/27/19 07:40 Alkaline Phosphatase 122 U/L (45-117) H 05/27/19 07:40 Total Protein 7.5 g/dl (6.4-8.2) 05/27/19 07:40 Albumin 3.6 g/dl (3.4-5.0) 05/27/19 07:40 RPR Titer Nonreactive (NONREACTIVE) 05/27/19 07:40 lab noted patient will bring in medication list and lab report to [facility] orthopedic 11 am appointment today - Treatment Hospital Course: Detox Protocol Followed, Detoxed Safely, Responded well, Discharged Condition Good, Rehab Referral Accepted Patient has Accepted a Rehab Referral to: [facility] - Medication Discharge Medications: Ambulatory Orders Albuterol Sulfate Inhaler - [Ventolin HFA Inhaler -] 2 inh PO Q4H PRN #1 inhaler 04/22/19 Bictegrav/Emtricit/Tenofov Ala [Biktarvy 50-200-25 mg Tablet] 1 each PO DAILY traZODone HCL [Trazodone HCl] 100 mg PO HS 05/26/19 Naloxone HCl [Narcan] 4 mg NS ASDIR PRN #1 spray 05/27/19 - Diagnosis (1) Arm fracture, left Current Visit: Yes Status: Acute Qualifiers: Encounter type: subsequent encounter Fracture type: closed Fracture healing: with routine healing Qualified Code(s): S42.302D - Unspecified fracture of shaft of humerus, left arm, subsequent encounter for fracture with routine healing (2) Substance induced mood disorder Current Visit: Yes Status: Suspected (3) Alcohol dependence with uncomplicated withdrawal Current Visit: Yes Status: Acute (4) Nicotine dependence Current Visit: Yes Status: Acute Qualifiers: Nicotine product type: cigarettes Substance use status: in withdrawal Qualified Code(s): F17.213 - Nicotine dependence, cigarettes, with withdrawal (5) Opioid dependence with withdrawal Current Visit: Yes Status: Acute (6) Asthma Current Visit: Yes Status: Chronic Qualifiers: Asthma severity: mild Asthma persistence: intermittent Asthma complication type: with status asthmaticus Qualified Code(s): J45.22 - Mild intermittent asthma with status asthmaticus (7) HIV (human immunodeficiency virus infection) Current Visit: Yes Status: Chronic Qualifiers: HIV symptom status: asymptomatic Qualified Code(s): Z21 - Asymptomatic human immunodeficiency virus [HIV] infection status (8) Nicotine dependence Current Visit: Yes Status: Acute Qualifiers: Nicotine product type: cigarettes Substance use status: in withdrawal Qualified Code(s): F17.213 - Nicotine dependence, cigarettes, with withdrawal (9) Substance induced mood disorder Current Visit: Yes Status: Suspected - AMA Did Patient Leave Against Medical Advice: No CIWA Score - CIWA Score Nausea/Vomitin-No Nausea/No Vomiting (last vomiting 05/27 after dinner) Muscle Tremors: 2 Anxiety: 2 Agitation: 1-Slight > Activity Paroxysmal Sweats: 1-Minimal Palms Moist Orientation: 0-Oriented (date of week) Tacttile Disturbances: 0-None Auditory Disturbances: 0-None Visual Disturbances: 0-None Headache: 0-None Present CIWA-Ar Total Score: 6 COWS (PN) - Opiate Withdrawal Resting Pulse: 0= [place] 80 or Below Sweatin= Chills/Flushing Restless Observation: 0= Sits Still Pupil Size: 0= Normal to Room Light Bone or Joint Aches: 1= Mild Discomfort Runny Nose/ Eye Tearin= None GI Upset > 30mins: 1= Stomach Cramp Tremor Observation of Outstretched Hands: 1= Tremor [place], Not Seen Yawning Observation: 0= None Anxiety or Irritability: 1=Feels Anxious/Irritable Goose Flesh Skin: 0=Smooth Skin COWS Score: 5
[2019-05-29] MEDS ORDERED: METHADONE HCL 10 MG TABLET (FOR DETOX USE ONLY) ONE (09:03)
[2019-05-29] MEDS ORDERED: METHADONE HCL 5 MG TABLET (FOR DETOX USE ONLY) ONE (09:03)
[2019-05-29 09:24] VITALS: BP 117/80; TEMP 96.2
[2019-05-29] MEDS: PRENATAL VITAMINS W/ FOLIC ACID TABLET (FP) PO SCH (10:00)
[2019-05-29] MEDS ORDERED: predniSONE 10 MG TABLET (UD) PO ONE (10:00)
[2019-05-29] MEDS: QUEtiapine FUMARATE 100 MG TABLET (FP) PO SCH (10:00)
[2019-05-29] MEDS ORDERED: METHADONE (DETOX) 10 MG, METHADONE (DETOX) 5 MG PO ONE (10:00)
[2019-05-29] MEDS: BICTEGRAV/EMTRICIT/TENOFOV (BIKTARVY) 50-200-25 MG TABLET PO SCH (10:01)
[2019-05-29] MEDS: FAMOTIDINE 20 MG TABLET PO SCH (10:01)
[2019-05-30] MEDS ORDERED: chlordiazePOXIDE HCL 10 MG CAPSULE PO SCH (05:00)
[2019-05-30] MEDS ORDERED: METHADONE HCL 10 MG TABLET (FOR DETOX USE ONLY) PO ONE (10:00)
[2019-05-30] MEDS ORDERED: predniSONE 5 MG TABLET (UD) PO ONE (10:00)
[2019-05-31] MEDS ORDERED: chlordiazePOXIDE HCL 10 MG CAPSULE PO ONE (05:00)
[2019-05-31] MEDS ORDERED: METHADONE HCL 5 MG TABLET (FOR DETOX USE ONLY) PO ONE (06:00)
== END 2019-05-29 11:24 | disposition home or self-care (01) | DRG 773 ==
LOC: YASAS 10:42 → Y3N 13:02
PROVIDERS: ADMIT Allergy & Immunology; ATTEND Allergy & Immunology
PROC: HZ2ZZZZ Detoxification Services for Substance Abuse Treatment (ICD-10-PCS; principal; 2019-05-26)
DX: F10.230 Alcohol dependence with withdrawal, uncomplicated (principal); F11.23 Opioid dependence with withdrawal; F14.20 Cocaine dependence, uncomplicated; F17.213 Nicotine dependence, cigarettes, with withdrawal; F19.282 Other psychoactive substance dependence with psychoactive substance-induced sleep disorder; F19.24 Other psychoactive substance dependence with psychoactive substance-induced mood disorder; Z21 Asymptomatic human immunodeficiency virus [HIV] infection status; J45.22 Mild intermittent asthma with status asthmaticus; E86.0 Dehydration; H54.8 Legal blindness, as defined in USA; E05.90 Thyrotoxicosis, unspecified without thyrotoxic crisis or storm; R63.4 Abnormal weight loss; Z68.21 Body mass index [BMI] 21.0-21.9, adult; S42.302D Unspecified fracture of shaft of humerus, left arm, subsequent encounter for fracture with routine healing; Z91.013 Allergy to seafood; Z91.5 Personal history of self-harm; X58.XXXD Exposure to other specified factors, subsequent encounter
CPT/HCPCS: 36415; 80053; 85027; 86593; Q0162

== ENCOUNTER 2020-03-25 09:54 | Inpatient (IN) | payer OTHER ==
--- NOTE | 2020-03-25 12:01 | BHS.RME ---
Substance Use & Tx History - Substance Use History Heroin Substance amount: 15-20 bags Frequency of use: Daily Substance route: Inhalation (ex: sniffing or snorting) Date of Last Use: 03/25/20 Alcohol Substance amount: 1 six pack beer 1-2 pints vodka Frequency of use: Daily Substance route: Oral Date of Last Use: 03/23/20 Nicotine Substance amount: 1/2-1 pack Frequency of use: Daily Physical/Psych/Mental Status - Behavior General Behavior: Increased activity (restlessness, agitation) Eye Contact: Normal - Cooperativeness Cooperativeness: Cooperative - Thinking Thought Processes: Tight, Logical, Goal Directed - Physical Health Problems Is patient presently having any pain?: No Does patient presently have any injuries (include location): No Does patient currently have a fever: No Is patient : No COWS - Scale Resting Pulse: 2= [place] 101-120 Sweatin= No chills or Flushing Restless Observation: 1= Difficult to Sit Still Pupil Size: 0= Normal to Room Light Bone or Joint Aches: 0= None (not yet in withdrawals due to use this morning at 6AM) Runny Nose/ Eye Tearin= Runny Nose/Eyes GI Upset > 30mins: 0= None Tremor Observation: 2= Slight Tremor Visible Yawning Observation: 1= 1-2x During Session Anxiety or Irritability: 2=Irritable/Anxious Goose Flesh Skin: 0=Smooth Skin COWS Score: 10 CIWA Nausea/Vomitin-Mild Nausea/No Vomiting Muscle Tremors: 2 Anxiety: 4-Mod. Anxious/Guarded Agitation: 5 Paroxysmal Sweats: 3 Orientation: 1-Uncertain about Date Tacttile Disturbances: 0-None Auditory Disturbances: 0-None Visual Disturbances: 0-None
--- NOTE | 2020-03-25 12:24 | HP ---
COWS - Scale Resting Pulse: 2= [place] 101-120 Sweatin= No chills or Flushing Restless Observation: 1= Difficult to Sit Still Pupil Size: 0= Normal to Room Light Bone or Joint Aches: 0= None (not yet in withdrawals due to use this morning at 6AM) Runny Nose/ Eye Tearin= Runny Nose/Eyes GI Upset > 30mins: 0= None Tremor Observation: 2= Slight Tremor Visible Yawning Observation: 1= 1-2x During Session Anxiety or Irritability: 2=Irritable/Anxious Goose Flesh Skin: 0=Smooth Skin COWS Score: 10 CIWA Score Nausea/Vomitin-Mild Nausea/No Vomiting Muscle Tremors: 2 Anxiety: 4-Mod. Anxious/Guarded Agitation: 5 Paroxysmal Sweats: 3 Orientation: 1-Uncertain about Date Tacttile Disturbances: 0-None Auditory Disturbances: 0-None Visual Disturbances: 0-None - Admission Criteria OASAS Guidelines: Admission for Medically Managed Detox: Requires at least one of the followin. CIWA greater than 12 2. Seizures within the past 24 hours 3. Delirium tremens within the past 24 hours 4. Hallucinations within the past 24 hours 5. Acute intervention needed for co occurring medical disorder 6. Acute intervention needed for co occurring psychiatric disorder 7. Severe withdrawal that cannot be handled at a lower level of care (continued vomiting, continued diarrhea, abnormal vital signs) requiring intravenous medication and/or fluids 8. Admitting History and Physical - Admission Chief Complaint: detox for alcohol and heroin History of Present Illness: Patient is a 44 y/o male with a history of asthma, HIV, legally blind who is here for detox from heroin and alcohol. Patient last used heroin this morning and used 2 bags. Patient started using heroin at age 22. Patient uses heroin everyday. Patient has overdosed " a lot". Patient last drank alcohol two days ago. Patient drinks alcohol every day. Patient drinks a 6 pack a day. Patient does need an eye signal tester. Patient denies blackouts. Patient denies any seizures. Patient also uses crack, every day. Patient uses 50 dollars of crack. Patient smokes cigarettes. Denies using IV heroin. Substance Use & Tx History - Substance Use History Heroin Substance amount: 15-20 bags Frequency of use: Daily Substance route: Inhalation (ex: sniffing or snorting) Date of Last Use: 03/25/20 Alcohol Substance amount: 1 six pack beer 1-2 pints vodka Frequency of use: Daily Substance route: Oral Date of Last Use: 03/23/20 Nicotine Substance amount: 1/2-1 pack Frequency of use: Daily PMHX: asthma, HIV, legally blind PSHX: appendectomy Patient meets criteria for inpatient detox, recent drug usage, needs eyeopener with alcohol, and has poor social situation. - Past Medical History Pulmonary: Yes: Asthma, Other (asthma) Infectious Disease: Yes: HIV Psych: Yes: Addictions Musculoskeletal: Yes: Other (fx of left wist on splint left wist 05/03/19) - Smoking History Smoking history: Current every day smoker Have you smoked in the past 12 months: Yes Aproximately how many cigarettes per day: 10 - Alcohol/Substance Use Hx Alcohol Use: Yes - Social History Usual Living Arrangement: Yes: Other (half-way in the [place]) Occupation: none Admission ROS [facility] Allergies/Adverse Reactions: Allergies Allergy/AdvReac Type Severity Reaction Status Date / Time Fish Containing Products Allergy Swelling Verified 05/26/19 12:19 Exam Limitations: No Limitations - Ebola screening Have you traveled outside of the country in the last 21 days: No Have you had contact with anyone from an Ebola affected area: No Have you been sick,other than usual withdrawal symptoms: No Do you have a fever: No - Review of Systems Constitutional: Other (tired) Respiratory: reports: No Symptoms reported Cardiac: reports: No Symptoms Reported GI: reports: No Symptoms Reported Patient History - Patient Medical History Hx Anemia: No Hx Asthma: Yes (on albuterol inhaler) Hx Chronic Obstructive Pulmonary Disease (COPD): No Hx Cancer: No Hx Cardiac Disorders: No Hx Congestive Heart Failure: No Hx Hypertension: No Hx Hypercholesterolemia: No Hx Pacemaker: No HX Cerebrovascular Accident: No Hx Seizures: No Hx Dementia: No Hx Diabetes: No Hx Gastrointestinal Disorders: No Hx Liver Disease: No Hx Genitourinary Disorders: No Hx Sexually Transmitted Disorders: Yes (HIV since 1997) Hx Renal Disease (ESRD): No Hx Thyroid Disease: Yes (hyperthryoid - not treated) Hx Human Immunodeficiency Virus (HIV): Yes (not taking any meds ) Hx Hepatitis C: No (negative) Hx Depression: Yes Hx Suicide Attempt: Yes (15yrs ago lying on the street) Hx Bipolar Disorder: No Hx Schizophrenia: No - Patient Surgical History Past Surgical History: Yes Hx Neurologic Surgery: No Hx Cataract Extraction: No Hx Cardiac Surgery: No Hx Lung Surgery: No Hx Breast Surgery: No Hx Breast Biopsy: No Hx Abdominal Surgery: No Hx Appendectomy: Yes (1983) Hx Cholecystectomy: No Hx Genitourinary Surgery: No Hx Section: No Hx Orthopedic Surgery: No Anesthesia Reaction: No - PPD History Date: 09/21/18 Results: 0mm - Smoking Cessation Smoking history: Current every day smoker Have you smoked in the past 12 months: Yes Aproximately how many cigarettes per day: 10 Hx Chewing Tobacco Use: No Initiated information on smoking cessation: No Admission Physical Exam BHS - Physical General Appearance: Yes: No Apparent Distress, Thin Respiratory: Yes: Normal Breath Sounds, No Respiratory Distress Cardiology: Yes: Regular Rhythm, Regular Rate Abdominal: Yes: Within Normal Limits, Non Tender Extremities: Yes: Normal Range of Motion Breathalyzer - Breathalyzer Breathalyzer: 0 Vital Signs - Vital Signs Vital signs refused: No Temperature: 97.5 F Temperature source: Oral Pulse Rate: 122 Respiratory Rate: 19 Blood Pressure: 135/93 - Height Height: 5 ft 9 in - Weight Weight: 60.328 kg - BMI Body Mass Index (BMI): 19.6 Urine Drug Screen - Test Device Lot number: [id number] Expiration date: 11/07/19 - Control Is test valid?: Yes - Results Drug screen NEGATIVE: No Urine drug screen results: KENDRA-Cocaine, MOP-Opiates Inpatient Rehab Admission - Rehab Decision to Admit Inpatient rehab admission?: No
[2020-03-25 12:30] VITALS: BMI 19.6
[2020-03-25] MEDS ORDERED: chlordiazePOXIDE HCL 25 MG CAPSULE PO PRN (12:31)
[2020-03-25] MEDS ORDERED: cloNIDine HCL 0.1 MG TABLET PO PRN (12:31)
[2020-03-25] MEDS ORDERED: MAG HYDROX/AL HYDROX/SIMETH 30 ML UNIT-DOSE CUP PO PRN (12:31)
[2020-03-25] MEDS ORDERED: MAGNESIUM HYDROX 2400MG/30ML ORAL SUSPENSION 30 ML CUP PO PRN (12:31)
[2020-03-25] MEDS ORDERED: BISMUTH SUBSALICYLATE 524 MG/30 ML UD PO PRN (12:31)
[2020-03-25] MEDS ORDERED: MENTHOL/PHENOL 1 EACH UD MM PRN (12:31)
[2020-03-25] MEDS ORDERED: MAGNESIUM CITRATE 300 ML BOTTLE PO PRN (12:31)
[2020-03-25] MEDS ORDERED: METHOCARBAMOL 500 MG TABLET PO PRN (12:31)
[2020-03-25] MEDS ORDERED: NICOTINE POLACRILEX 2 MG GUM BUC PRN (12:31)
[2020-03-25] MEDS ORDERED: ACETAMINOPHEN 325 MG TABLET (FP) PO PRN ×2 (12:31)
[2020-03-25] MEDS ORDERED: ALBUTEROL SO4 HFA INHALER IH PRN (12:33)
[2020-03-25] MEDS ORDERED: METHADONE HCL 10 MG TABLET (FOR DETOX USE ONLY) PO ONE (13:30)
[2020-03-25] MEDS ORDERED: ONDANSETRON *ODT* 4 MG TABLET SL ONE (14:00)
[2020-03-25] MEDS: hydrOXYzine PAMOATE 25 MG CAPSULE (FP) PO SCH ×3 (14:32→22:35)
[2020-03-25] MEDS: PRENATAL VITAMINS W/ FOLIC ACID TABLET (FP) PO SCH (14:32)
[2020-03-25] MEDS: BICTEGRAV/EMTRICIT/TENOFOV (BIKTARVY) 50-200-25 MG TABLET PO SCH (15:58)
[2020-03-25 16:06] LABS: HEMATOCRIT 40.9 % (35.4-49); HEMOGLOBIN 13.5 GM/dL (11.7-16.9); MCH 28.8 pg (25.7-33.7); MCHC 33.2 g/dl (32.0-35.9); MEAN CELL VOLUME 86.9 fl (80-96); MEAN PLT VOLUME 8.9 fl (7.5-11.1); PLATELET COUNT 379 K/MM3 (134-434); RDW 13.9 % (11.9-15.9)
[2020-03-25 16:18] LABS: ALBUMIN 3.1 g/dl (3.4-5.0); BILIRUBIN,TOTAL 0.3 mg/dL (0.2-1); BLOOD UREA NITROGEN 18.7 mg/dL (7-18); CALCIUM 9.1 mg/dL (8.5-10.1); CREATININE 1.2 mg/dL (0.55-1.3); POTASSIUM 3.8 mmol/L (3.5-5.1); TOT PROT 7.2 g/dl (6.4-8.2)
[2020-03-25] MEDS: chlordiazePOXIDE HCL 25 MG CAPSULE PO SCH ×2 (17:59→22:33)
[2020-03-25] MEDS: THIAMINE HCL 100 MG TABLET (FP) PO SCH (22:33)
[2020-03-25] MEDS: MELATONIN 5 MG TABLETS PO SCH (22:35)
[2020-03-26] MEDS: chlordiazePOXIDE HCL 25 MG CAPSULE PO SCH ×4 (05:30→22:04)
[2020-03-26] MEDS: hydrOXYzine PAMOATE 25 MG CAPSULE (FP) PO SCH ×5 (07:17→22:05)
[2020-03-26] MEDS: BICTEGRAV/EMTRICIT/TENOFOV (BIKTARVY) 50-200-25 MG TABLET PO SCH (07:37)
--- NOTE | 2020-03-26 09:04 | PN ---
Teaching Attending Note Name of Resident: Darshana Monae ATTENDING PHYSICIAN STATEMENT I saw and evaluated the patient. I reviewed the resident's note and discussed the case with the resident. I agree with the resident's findings and plan as documented. SUBJECTIVE: OBJECTIVE: ASSESSMENT AND PLAN: Agree with resident's findings and plan for detox.
[2020-03-26] MEDS ORDERED: METHADONE HCL 10 MG TABLET (FOR DETOX USE ONLY) ONE (09:13)
[2020-03-26] MEDS ORDERED: METHADONE HCL 5 MG TABLET (FOR DETOX USE ONLY) ONE (09:13)
[2020-03-26] MEDS ORDERED: METHADONE (DETOX) 20 MG, METHADONE (DETOX) 5 MG PO ONE (10:00)
[2020-03-26] MEDS: NICOTINE 7 MG/24 HOURS TOPICAL PATCH TD SCH (10:17)
[2020-03-26] MEDS: PRENATAL VITAMINS W/ FOLIC ACID TABLET (FP) PO SCH (10:17)
--- NOTE | 2020-03-26 11:36 | PN ---
[facility] CIWA - CIWA Score Nausea/Vomitin-Mild Nausea/No Vomiting Muscle Tremors: 3 Anxiety: 3 Agitation: 3 Paroxysmal Sweats: 1-Minimal Palms Moist Orientation: 0-Oriented Tacttile Disturbances: 1-Very Mild Itch/Numbness Auditory Disturbances: 0-None Visual Disturbances: 0-None Headache: 2-Mild CIWA-Ar Total Score: 14 S COWS - Scale Resting Pulse: 0= [place] 80 or Below Sweatin= No chills or Flushing Restless Observation: 0= Sits Still Pupil Size: 1= Pupils >than Normal Bone or Joint Aches: 2= Severe Diffuse Aches Runny Nose/ Eye Tearin= Runny Nose/Eyes GI Upset > 30mins: 2= Nausea/Diarrhea Tremor Observation of Outstretched Hands: 2= Slight Tremor Visible Yawning Observation: 1= 1-2x During Session Anxiety or Irritability: 2=Irritable/Anxious Goose Flesh Skin: 0=Smooth Skin COWS Score: 12 [facility] Progress Note (SOAP) Subjective: alert,irritable,anxious,interrupted sleep,tremor,pain in the body and back,nausea Objective: 03/26/20 11:33 Vital Signs Temperature 99.6 F 03/26/20 08:36 Pulse Rate 85 03/26/20 08:36 Respiratory Rate 18 03/26/20 08:36 Blood Pressure 134/82 03/26/20 08:36 O2 Sat by Pulse Oximetry (%) 98 03/26/20 08:36 Laboratory Last Values WBC 7.0 K/mm3 (4.0-10.0) 03/25/20 13:00 RBC 4.70 M/mm3 (4.00-5.60) 03/25/20 13:00 Hgb 13.5 GM/dL (11.7-16.9) 03/25/20 13:00 Hct 40.9 % (35.4-49) 03/25/20 13:00 MCV 86.9 fl (80-96) 03/25/20 13:00 MCH 28.8 pg (25.7-33.7) 03/25/20 13:00 MCHC 33.2 g/dl (32.0-35.9) 03/25/20 13:00 RDW 13.9 % (11.9-15.9) D 03/25/20 13:00 Plt Count 379 K/MM3 (134-434) D 03/25/20 13:00 MPV 8.9 fl (7.5-11.1) 03/25/20 13:00 Sodium 141 mmol/L (136-145) 03/25/20 13:00 Potassium 3.8 mmol/L (3.5-5.1) 03/25/20 13:00 Chloride 107 mmol/L (98-107) 03/25/20 13:00 Carbon Dioxide 22 mmol/L (21-32) 03/25/20 13:00 Anion Gap 12 MMOL/L (8-16) 03/25/20 13:00 BUN 18.7 mg/dL (7-18) H 03/25/20 13:00 Creatinine 1.2 mg/dL (0.55-1.3) 03/25/20 13:00 Est GFR (CKD-EPI)AfAm 83.54 03/25/20 13:00 Est GFR (CKD-EPI)NonAf 72.08 03/25/20 13:00 Random Glucose 177 mg/dL (74-106) H 03/25/20 13:00 Calcium 9.1 mg/dL (8.5-10.1) 03/25/20 13:00 Total Bilirubin 0.3 mg/dL (0.2-1) 03/25/20 13:00 AST 18 U/L (15-37) 03/25/20 13:00 ALT 19 U/L (13-61) 03/25/20 13:00 Alkaline Phosphatase 90 U/L (45-117) 03/25/20 13:00 Total Protein 7.2 g/dl (6.4-8.2) 03/25/20 13:00 Albumin 3.1 g/dl (3.4-5.0) L 03/25/20 13:00 Syphilis Serology Non-reactive (NONREACTIVE) 03/25/20 13:00 COVID-19 (PIA) Not detected (Not Detected) 03/25/20 15:00 Assessment: 03/26/20 11:34 withdrawal symptom Plan: continue detox methadone and librium regimen,encourage oral fluid,hydration,bun 18.7,glucose is 177, will repeat bmp,fasting glucose in am
[2020-03-26] MEDS: IBUPROFEN 400 MG TABLET (FP) PO PRN ×2 (13:02→22:07)
[2020-03-26] MEDS: THIAMINE HCL 100 MG TABLET (FP) PO SCH (22:04)
[2020-03-26] MEDS: MELATONIN 5 MG TABLETS PO SCH ×2 (22:08→23:02)
[2020-03-27] MEDS: hydrOXYzine PAMOATE 25 MG CAPSULE (FP) PO SCH ×2 (06:52→10:20)
[2020-03-27] MEDS: chlordiazePOXIDE HCL 25 MG CAPSULE PO SCH ×2 (06:53→10:19)
[2020-03-27] MEDS: BICTEGRAV/EMTRICIT/TENOFOV (BIKTARVY) 50-200-25 MG TABLET PO SCH (07:08)
[2020-03-27] MEDS ORDERED: METHADONE HCL 10 MG TABLET (FOR DETOX USE ONLY) PO ONE (10:00)
[2020-03-27] MEDS: NICOTINE 7 MG/24 HOURS TOPICAL PATCH TD SCH (10:19)
[2020-03-27] MEDS: PRENATAL VITAMINS W/ FOLIC ACID TABLET (FP) PO SCH (10:20)
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
[2020-03-27] MEDS ORDERED: hydrOXYzine PAMOATE 50 MG CAPSULE (FP) PO PRN (10:31)
--- NOTE | 2020-03-27 10:42 | PN ---
[facility] CIWA - CIWA Score Nausea/Vomitin Muscle Tremors: 3 Anxiety: 3 Agitation: 2 Paroxysmal Sweats: No Perspiration Orientation: 0-Oriented Tacttile Disturbances: 1-Very Mild Itch/Numbness Auditory Disturbances: 0-None Visual Disturbances: 0-None Headache: 2-Mild CIWA-Ar Total Score: 14 [facility] COWS - Scale Resting Pulse: 1= [place] 81-100 Sweatin= No chills or Flushing Restless Observation: 1= Difficult to Sit Still Pupil Size: 1= Pupils >than Normal Bone or Joint Aches: 2= Severe Diffuse Aches Runny Nose/ Eye Tearin= Nasal Congestion GI Upset > 30mins: 3= Vomiting/Diarrhea Tremor Observation of Outstretched Hands: 2= Slight Tremor Visible Yawning Observation: 1= 1-2x During Session Anxiety or Irritability: 2=Irritable/Anxious Goose Flesh Skin: 0=Smooth Skin COWS Score: 14 S Progress Note (SOAP) Subjective: alert,irritable,anxious,interrupted sleep,tremor,pain in the body and back,aching pain Objective: 03/27/20 10:40 Vital Signs Temperature 97.9 F 03/27/20 06:16 Pulse Rate 81 03/27/20 06:16 Respiratory Rate 18 03/27/20 06:16 Blood Pressure 143/89 03/27/20 06:16 O2 Sat by Pulse Oximetry (%) 96 03/27/20 06:16 03/27/20 10:41 repeat bmp,fasting glucose pending Assessment: 03/27/20 10:41 withdrawal symptom Plan: continue detox methadone and librium regimen,hydration
--- NOTE | 2020-03-27 11:01 | CONSULT ---
[facility] Psychiatric Consult - Data Date of interview: 03/27/20 Admission source: Self-referred Mental Status Exam - Mental Status Exam Alert and Oriented to: Time, Place, Person Cognitive Function: Fair Patient Appearance: Disheveled Mood: Anxious Affect: Appropriate Patient Behavior: Cooperative Speech Pattern: Clear Voice Loudness: Normal Thought Process: Intact, Goal Oriented Thought Disorder: Not Present Hallucinations: Denies Suicidal Ideation: Denies Homicidal Ideation: Denies Insight/Judgement: Poor Sleep: Poorly Appetite: Poor Muscle strength/Tone: Normal Gait/Station: Normal Psychiatric Findings - Problem List ([place] 1, 2,3) (1) Bipolar disorder Current Visit: No Status: Chronic (2) Substance-induced anxiety disorder Current Visit: Yes Status: Acute (3) Substance-induced sleep disorder Current Visit: No Status: Acute (4) Alcohol dependence with uncomplicated withdrawal Current Visit: No Status: Acute (5) Opioid dependence with withdrawal Current Visit: No Status: Acute (6) Cocaine dependence Current Visit: No Status: Acute Qualifiers: Substance use status: uncomplicated Qualified Code(s): F14.20 - Cocaine dependence, uncomplicated (7) Nicotine dependence Current Visit: No Status: Chronic Qualifiers: Nicotine product type: cigarettes Substance use status: in withdrawal Qualified Code(s): F17.213 - Nicotine dependence, cigarettes, with withdrawal (8) Asthma Current Visit: No Status: Chronic Qualifiers: Asthma severity: mild Asthma persistence: intermittent Asthma complication type: with status asthmaticus Qualified Code(s): J45.22 - Mild intermittent asthma with status asthmaticus (9) HIV (human immunodeficiency virus infection) Current Visit: No Status: Chronic Qualifiers: HIV symptom status: asymptomatic Qualified Code(s): Z21 - Asymptomatic human immunodeficiency virus [HIV] infection status Comment: non compliant with medication. last time taken was a month ago (10) Hyperthyroidism Current Visit: No Status: Chronic (11) Fx. left wrist Current Visit: No Status: Resolved
[2020-03-27 11:06] LABS: BLOOD UREA NITROGEN 23.7 mg/dL (7-18); CALCIUM 8.4 mg/dL (8.5-10.1); POTASSIUM 3.6 mmol/L (3.5-5.1)
[2020-03-27] MEDS ORDERED: busPIRone HCL 5 MG TABLET PO SCH (11:45)
[2020-03-27] MEDS ORDERED: risperiDONE 1 MG TABLET PO SCH (11:45)
[2020-03-27 13:25] VITALS: BP 147/79; PULSE 99; TEMP 98.2
--- NOTE | 2020-03-27 13:51 | PN ---
[facility] Progress Note Note: informed by nurse that patient does not want to complete treatment, all attempts to convince patient to stay with no avail,high risks of relapsing explained,patient understood, signed release against medical advice,the risks of permanent disability,seizure and explained,patient understood left the unit in stable condition,advise to call 911 if not feeling well
--- NOTE | 2020-03-27 13:53 | DS ---
[facility] Detox Discharge Summary Admission Date: 03/25/20 Discharge Date: 03/27/20 - History Present History: Alcohol Dependence, Opioid Dependence Additional Comments: alerted ,oriented x 3 lung clear bilaterally on auscultation abdomen soft,no distension,no pain no swelling of the extremities patient did not want to complete treatment signed release against medical advice,please see the progress note patient has his medications at home,will see his medical provider for medical issues follow up with out patient program as arrangement by counselor left the unit in stable condition total time spending 30 minutes e prescription of narcan nasal spray and albuterol inhaler to [facility] [facility] Pertinent Past History: hiv nicotine dependence asthma bipolar disorder - Physical Exam Results Vital Signs: Vital Signs Temperature 98.2 F 03/27/20 12:50 Pulse Rate 99 H 03/27/20 12:50 Respiratory Rate 17 03/27/20 12:50 Blood Pressure 147/79 03/27/20 12:50 O2 Sat by Pulse Oximetry (%) 99 03/27/20 12:50 Pertinent Admission Physical Exam Findings: withdrawal signs and symptom Laboratory Last Values WBC 7.0 K/mm3 (4.0-10.0) 03/25/20 13:00 RBC 4.70 M/mm3 (4.00-5.60) 03/25/20 13:00 Hgb 13.5 GM/dL (11.7-16.9) 03/25/20 13:00 Hct 40.9 % (35.4-49) 03/25/20 13:00 MCV 86.9 fl (80-96) 03/25/20 13:00 MCH 28.8 pg (25.7-33.7) 03/25/20 13:00 MCHC 33.2 g/dl (32.0-35.9) 03/25/20 13:00 RDW 13.9 % (11.9-15.9) D 03/25/20 13:00 Plt Count 379 K/MM3 (134-434) D 03/25/20 13:00 MPV 8.9 fl (7.5-11.1) 03/25/20 13:00 Sodium 142 mmol/L (136-145) 03/27/20 07:35 Potassium 3.6 mmol/L (3.5-5.1) 03/27/20 07:35 Chloride 112 mmol/L (98-107) H 03/27/20 07:35 Carbon Dioxide 26 mmol/L (21-32) 03/27/20 07:35 Anion Gap 5 MMOL/L (8-16) L 03/27/20 07:35 BUN 23.7 mg/dL (7-18) H 03/27/20 07:35 Creatinine 1.0 mg/dL (0.55-1.3) 03/27/20 07:35 Est GFR (CKD-EPI)AfAm 104.15 03/27/20 07:35 Est GFR (CKD-EPI)NonAf 89.86 03/27/20 07:35 Random Glucose 109 mg/dL (74-106) H 03/27/20 07:35 Fasting Glucose 109 mg/dL (74-106) H 03/27/20 07:35 Calcium 8.4 mg/dL (8.5-10.1) L 03/27/20 07:35 Total Bilirubin 0.3 mg/dL (0.2-1) 03/25/20 13:00 AST 18 U/L (15-37) 03/25/20 13:00 ALT 19 U/L (13-61) 03/25/20 13:00 Alkaline Phosphatase 90 U/L (45-117) 03/25/20 13:00 Total Protein 7.2 g/dl (6.4-8.2) 03/25/20 13:00 Albumin 3.1 g/dl (3.4-5.0) L 03/25/20 13:00 Syphilis Serology Non-reactive (NONREACTIVE) 03/25/20 13:00 COVID-19 (PIA) Not detected (Not Detected) 03/25/20 15:00 - Medication Discharge Medications: Ambulatory Orders Bictegrav/Emtricit/Tenofov Ala [Biktarvy 50-200-25 mg Tablet] 1 each PO DAILY 05/26/19 traZODone HCL [Trazodone HCl] 100 mg PO HS 05/26/19 Albuterol Sulfate Inhaler - [Ventolin HFA Inhaler -] 2 inh PO Q4H PRN #1 inhaler 03/27/20 - Diagnosis (1) Opioid dependence with withdrawal Status: Acute (2) Alcohol dependence with uncomplicated withdrawal Status: Acute (3) Cocaine dependence Status: Acute Qualifiers: Substance use status: uncomplicated Qualified Code(s): F14.20 - Cocaine d ependence, uncomplicated (4) Dehydration Status: Acute (5) Nicotine dependence Status: Acute Qualifiers: Nicotine product type: cigarettes Substance use status: in withdrawal Qualified Code(s): F17.213 - Nicotine dependence, cigarettes, with withdrawal (6) HIV (human immunodeficiency virus infection) Status: Chronic Qualifiers: HIV symptom status: asymptomatic Qualified Code(s): Z21 - Asymptomatic human immunodeficiency virus [HIV] infection status (7) History of bipolar disorder Status: Chronic (8) Dehydration Status: Acute - AMA Did Patient Leave Against Medical Advice: Yes
[2020-03-27] MEDS ORDERED: NALOXONE (NARCAN) HCL 4 MG/0.1 ML SPRAY NS ONE (14:05)
[2020-03-27] MEDS ORDERED: QUEtiapine FUMARATE 100 MG TABLET (FP) PO SCH (22:00)
[2020-03-28] MEDS ORDERED: chlordiazePOXIDE HCL 10 MG CAPSULE PO PRN
[2020-03-28] MEDS ORDERED: chlordiazePOXIDE HCL 10 MG CAPSULE PO SCH (05:00)
[2020-03-28] MEDS ORDERED: METHADONE (DETOX) 10 MG, METHADONE (DETOX) 5 MG PO ONE (10:00)
[2020-03-29] MEDS ORDERED: chlordiazePOXIDE HCL 10 MG CAPSULE PO SCH (05:00)
[2020-03-29] MEDS ORDERED: METHADONE HCL 10 MG TABLET (FOR DETOX USE ONLY) PO ONE (10:00)
[2020-03-30] MEDS ORDERED: chlordiazePOXIDE HCL 10 MG CAPSULE PO ONE (05:00)
[2020-03-30] MEDS ORDERED: METHADONE HCL 5 MG TABLET (FOR DETOX USE ONLY) PO ONE (06:00)
== END 2020-03-27 13:21 | disposition left against medical advice (07) | DRG 770 ==
LOC: YASAS 09:54 → Y6N 13:18
PROVIDERS: ADMIT Allergy & Immunology; ATTEND Allergy & Immunology
PROC: HZ2ZZZZ Detoxification Services for Substance Abuse Treatment (ICD-10-PCS; principal; 2020-03-25)
DX: F11.23 Opioid dependence with withdrawal (principal); F10.230 Alcohol dependence with withdrawal, uncomplicated; F14.20 Cocaine dependence, uncomplicated; F17.210 Nicotine dependence, cigarettes, uncomplicated; F19.280 Other psychoactive substance dependence with psychoactive substance-induced anxiety disorder; F19.282 Other psychoactive substance dependence with psychoactive substance-induced sleep disorder; F31.9 Bipolar disorder, unspecified; Z21 Asymptomatic human immunodeficiency virus [HIV] infection status; J45.20 Mild intermittent asthma, uncomplicated; E86.0 Dehydration; E05.90 Thyrotoxicosis, unspecified without thyrotoxic crisis or storm; H54.8 Legal blindness, as defined in USA; Z62.810 Personal history of physical and sexual abuse in childhood; Z91.5 Personal history of self-harm; Z56.0 Unemployment, unspecified; Z59.0 Homelessness; Z91.013 Allergy to seafood; Z87.81 Personal history of (healed) traumatic fracture
CPT/HCPCS: 36415; 80048; 80053; 82947; 85027; 86780; Q0162; U0003

== ENCOUNTER 2020-09-22 15:47 | Inpatient (IN) | payer OTHER ==
[2020-09-22] MEDS ORDERED: cloNIDine HCL 0.1 MG TABLET PO PRN (17:09)
[2020-09-22] MEDS ORDERED: MAGNESIUM CITRATE 300 ML BOTTLE PO PRN (17:09)
[2020-09-22] MEDS ORDERED: ACETAMINOPHEN 325 MG TABLET (FP) PO PRN (17:09)
[2020-09-22] MEDS ORDERED: ONDANSETRON *ODT* 4 MG TABLET SL PRN (17:09)
[2020-09-22] MEDS ORDERED: MAG HYDROX/AL HYDROX/SIMETH 30 ML UNIT-DOSE CUP PO PRN (17:09)
[2020-09-22] MEDS ORDERED: METHADONE HCL 10 MG TABLET (FOR DETOX USE ONLY) PO ONE (17:09)
[2020-09-22] MEDS ORDERED: MAGNESIUM HYDROX 2400MG/30ML ORAL SUSPENSION 30 ML CUP PO PRN (17:09)
[2020-09-22] MEDS ORDERED: METHOCARBAMOL 500 MG TABLET PO PRN (17:09)
[2020-09-22] MEDS ORDERED: MENTHOL/PHENOL 1 EACH UD MM PRN (17:09)
[2020-09-22] MEDS ORDERED: BISMUTH SUBSALICYLATE 524 MG/30 ML UD PO PRN (17:09)
[2020-09-22] MEDS ORDERED: ALBUTEROL SO4 HFA INHALER IH PRN (17:13)
[2020-09-22 17:22] VITALS: BMI 20.7
[2020-09-22] MEDS: IBUPROFEN 400 MG TABLET (FP) PO PRN (19:02)
[2020-09-22] MEDS: PRENATAL VITAMINS W/ FOLIC ACID TABLET (FP) PO SCH (19:03)
[2020-09-22] MEDS: hydrOXYzine PAMOATE 25 MG CAPSULE (FP) PO SCH ×2 (19:04→22:39)
[2020-09-22] MEDS: CLINDAMYCIN HCL 150 MG CAPSULE (FP) PO SCH (22:39)
[2020-09-22] MEDS: MELATONIN 5 MG TABLETS PO SCH (22:39)
[2020-09-22] MEDS: THIAMINE HCL 100 MG TABLET (FP) PO SCH (22:39)
[2020-09-23] MEDS: hydrOXYzine PAMOATE 25 MG CAPSULE (FP) PO SCH ×5 (05:51→22:30)
[2020-09-23] MEDS: CLINDAMYCIN HCL 150 MG CAPSULE (FP) PO SCH ×3 (05:51→22:29)
[2020-09-23] MEDS: IBUPROFEN 400 MG TABLET (FP) PO PRN ×3 (05:52→18:45)
[2020-09-23] MEDS ORDERED: METHADONE HCL 5 MG TABLET (FOR DETOX USE ONLY) ONE (08:50)
[2020-09-23] MEDS ORDERED: METHADONE HCL 10 MG TABLET (FOR DETOX USE ONLY) ONE (08:51)
[2020-09-23] MEDS ORDERED: METHADONE (DETOX) 20 MG, METHADONE (DETOX) 5 MG PO ONE (10:00)
[2020-09-23] MEDS: PRENATAL VITAMINS W/ FOLIC ACID TABLET (FP) PO SCH (10:12)
[2020-09-23] MEDS ORDERED: diazePAM 5 MG TABLET PO PRN (11:10)
[2020-09-23 12:11] LABS: HEMATOCRIT 36.9 % (35.4-49); HEMOGLOBIN 12.2 GM/dL (11.7-16.9); MCH 29.3 pg (25.7-33.7); MCHC 33.1 g/dl (32.0-35.9); MEAN CELL VOLUME 88.6 fl (80-96); MEAN PLT VOLUME 8.7 fl (7.5-11.1); PLATELET COUNT 305 K/MM3 (134-434); RBC 4.16 M/mm3 (4.00-5.60); WHITE BLOOD COUNT 4.7 K/mm3 (4.0-10.0)
[2020-09-23 12:12] LABS: POTASSIUM 4.4 mmol/L (3.5-5.1)
[2020-09-23 12:17] LABS: ALBUMIN 2.8 g/dl (3.4-5.0); BLOOD UREA NITROGEN 13.2 mg/dL (7-18); CALCIUM 8.3 mg/dL (8.5-10.1)
[2020-09-23 12:20] LABS: CREATININE 0.9 mg/dL (0.55-1.3)
[2020-09-23 12:23] LABS: BILIRUBIN,TOTAL 0.4 mg/dL (0.2-1); TOT PROT 6.7 g/dl (6.4-8.2)
[2020-09-23] MEDS: BICTEGRAV/EMTRICIT/TENOFOV (BIKTARVY) 50-200-25 MG TABLET PO SCH (12:43)
[2020-09-23] MEDS: diazePAM 5 MG TABLET PO SCH ×2 (16:59→22:30)
[2020-09-23] MEDS: MELATONIN 5 MG TABLETS PO SCH (22:30)
[2020-09-23] MEDS: THIAMINE HCL 100 MG TABLET (FP) PO SCH (22:30)
[2020-09-24] MEDS: CLINDAMYCIN HCL 150 MG CAPSULE (FP) PO SCH ×3 (05:28→22:43)
[2020-09-24] MEDS: diazePAM 5 MG TABLET PO SCH ×4 (05:28→22:38)
[2020-09-24] MEDS: hydrOXYzine PAMOATE 25 MG CAPSULE (FP) PO SCH ×5 (05:28→22:38)
[2020-09-24] MEDS: IBUPROFEN 400 MG TABLET (FP) PO PRN ×3 (08:17→22:39)
[2020-09-24] MEDS: BICTEGRAV/EMTRICIT/TENOFOV (BIKTARVY) 50-200-25 MG TABLET PO SCH (08:24)
[2020-09-24] MEDS ORDERED: METHADONE HCL 10 MG TABLET (FOR DETOX USE ONLY) PO ONE (10:00)
[2020-09-24] MEDS: PRENATAL VITAMINS W/ FOLIC ACID TABLET (FP) PO SCH (10:26)
[2020-09-24] MEDS ORDERED: NICOTINE POLACRILEX 2 MG GUM BUC PRN (15:36)
[2020-09-24] MEDS ORDERED: NICOTINE 7 MG/24 HOURS TOPICAL PATCH TD SCH (15:45)
[2020-09-24 21:32] VITALS: TEMP 97.1
[2020-09-24] MEDS: MELATONIN 5 MG TABLETS PO SCH (22:37)
[2020-09-24] MEDS: THIAMINE HCL 100 MG TABLET (FP) PO SCH (22:38)
[2020-09-25] MEDS ORDERED: diazePAM 5 MG TABLET PO SCH (06:00)
[2020-09-25] MEDS: hydrOXYzine PAMOATE 25 MG CAPSULE (FP) PO SCH (06:58)
[2020-09-25] MEDS: CLINDAMYCIN HCL 150 MG CAPSULE (FP) PO SCH (06:58)
[2020-09-25 07:42] VITALS: BP 126/79; PULSE 87
[2020-09-25] MEDS ORDERED: METHADONE (DETOX) 10 MG, METHADONE (DETOX) 5 MG PO ONE (10:00)
[2020-09-26] MEDS ORDERED: diazePAM 5 MG TABLET PO SCH (06:00)
[2020-09-26] MEDS ORDERED: METHADONE HCL 10 MG TABLET (FOR DETOX USE ONLY) PO ONE (10:00)
[2020-09-27] MEDS ORDERED: diazePAM 5 MG TABLET PO ONE (06:00)
[2020-09-27] MEDS ORDERED: METHADONE HCL 5 MG TABLET (FOR DETOX USE ONLY) PO ONE (06:00)
== END 2020-09-25 09:21 | disposition left against medical advice (07) | DRG 770 ==
LOC: YASAS 15:47 → Y6N 17:25
PROVIDERS: ADMIT Allergy & Immunology; ATTEND Allergy & Immunology
PROC: HZ2ZZZZ Detoxification Services for Substance Abuse Treatment (ICD-10-PCS; principal; 2020-09-21)
DX: F10.230 Alcohol dependence with withdrawal, uncomplicated (principal); F11.23 Opioid dependence with withdrawal; F14.20 Cocaine dependence, uncomplicated; F17.213 Nicotine dependence, cigarettes, with withdrawal; F19.24 Other psychoactive substance dependence with psychoactive substance-induced mood disorder; F31.9 Bipolar disorder, unspecified; Z21 Asymptomatic human immunodeficiency virus [HIV] infection status; G47.00 Insomnia, unspecified; E86.0 Dehydration; J45.909 Unspecified asthma, uncomplicated; R63.4 Abnormal weight loss; Z68.20 Body mass index [BMI] 20.0-20.9, adult
CPT/HCPCS: 36415; 80053; 85027; 86780; 93005; 93010; C9803; U0003

== ENCOUNTER 2021-08-06 10:23 | Inpatient (IN) | payer OTHER ==
[2021-08-06] MEDS ORDERED: MAGNESIUM HYDROX 2400MG/30ML ORAL SUSPENSION 30 ML CUP PO PRN (11:40)
[2021-08-06] MEDS ORDERED: ONDANSETRON *ODT* 4 MG TABLET SL PRN (11:40)
[2021-08-06] MEDS ORDERED: MENTHOL/PHENOL 1 EACH UD MM PRN (11:40)
[2021-08-06] MEDS ORDERED: MAGNESIUM CITRATE 300 ML BOTTLE PO PRN (11:40)
[2021-08-06] MEDS ORDERED: ACETAMINOPHEN 325 MG TABLET (FP) PO PRN ×2 (11:40)
[2021-08-06] MEDS ORDERED: BISMUTH SUBSALICYLATE 262 MG/15 ML BTL PO PRN (11:40)
[2021-08-06 11:44] VITALS: BMI 20.7
[2021-08-06] MEDS: THIAMINE HCL 100 MG TABLET (FP) PO SCH (22:34)
[2021-08-06] MEDS: MELATONIN 5 MG TABLETS PO SCH (22:34)
[2021-08-07] MEDS ORDERED: methaDONE HCL 10 MG TABLET (FOR DETOX USE ONLY) PO ONE (09:54)
[2021-08-07] MEDS: diazePAM 5 MG TABLET PO PRN (10:40)
[2021-08-07] MEDS: METHOCARBAMOL 500 MG TABLET PO PRN (10:41)
[2021-08-07] MEDS: PRENATAL VITAMINS W/ FOLIC ACID TABLET (FP) PO SCH (10:42)
[2021-08-07 11:16] LABS: HEMOGLOBIN 12.8 GM/dL (11.7-16.9); MCH 29.6 pg (25.7-33.7); MCHC 32.7 g/dl (32.0-35.9); MEAN CELL VOLUME 90.4 fl (80-96); MEAN PLT VOLUME 7.4 fl (7.5-11.1); PLATELET COUNT 518 10^3/uL (134-434); RBC 4.31 M/mm3 (4.00-5.60); WHITE BLOOD COUNT 3.3 K/mm3 (4.0-10.0)
[2021-08-07 11:43] LABS: CALCIUM 8.5 mg/dL (8.5-10.1)
[2021-08-07 11:44] LABS: ALBUMIN 2.9 g/dl (3.4-5.0); BLOOD UREA NITROGEN 15.9 mg/dL (7-18)
[2021-08-07 11:46] LABS: CREATININE 0.9 mg/dL (0.55-1.3)
[2021-08-07 11:48] LABS: BILIRUBIN,TOTAL 0.3 mg/dL (0.2-1); TOT PROT 6.6 g/dl (6.4-8.2)
[2021-08-07] MEDS: MELATONIN 5 MG TABLETS PO SCH (23:00)
[2021-08-07] MEDS: THIAMINE HCL 100 MG TABLET (FP) PO SCH (23:00)
[2021-08-08] MEDS ORDERED: methaDONE HCL 10 MG TABLET (FOR DETOX USE ONLY) ONE (09:15)
[2021-08-08] MEDS: PRENATAL VITAMINS W/ FOLIC ACID TABLET (FP) PO SCH (10:13)
[2021-08-08] MEDS: diazePAM 5 MG TABLET PO PRN (10:15)
[2021-08-08] MEDS: IBUPROFEN 400 MG TABLET (FP) PO PRN (10:17)
[2021-08-08] MEDS: THIAMINE HCL 100 MG TABLET (FP) PO SCH (22:20)
[2021-08-08] MEDS: MELATONIN 5 MG TABLETS PO SCH (22:20)
[2021-08-08] MEDS: METHOCARBAMOL 500 MG TABLET PO PRN (22:21)
[2021-08-08] MEDS: cloNIDine HCL 0.1 MG TABLET PO PRN (22:22)
[2021-08-09] MEDS: MAG HYDROX/AL HYDROX/SIMETH 30 ML UNIT-DOSE CUP PO PRN (00:45)
[2021-08-09] MEDS ORDERED: methaDONE HCL 10 MG TABLET (FOR DETOX USE ONLY) PO ONE (10:00)
[2021-08-09] MEDS: PRENATAL VITAMINS W/ FOLIC ACID TABLET (FP) PO SCH (10:09)
[2021-08-09] MEDS: cloNIDine HCL 0.1 MG TABLET PO PRN (10:11)
[2021-08-09] MEDS: IBUPROFEN 400 MG TABLET (FP) PO PRN (10:11)
[2021-08-09] MEDS: METHOCARBAMOL 500 MG TABLET PO PRN (10:13)
[2021-08-09] MEDS: hydrOXYzine PAMOATE 25 MG CAPSULE (FP) PO PRN ×3 (10:54→22:29)
[2021-08-09] MEDS: THIAMINE HCL 100 MG TABLET (FP) PO SCH (22:29)
[2021-08-09] MEDS: QUEtiapine FUMARATE 100 MG TABLET (FP) PO SCH (22:29)
[2021-08-09] MEDS: diazePAM 5 MG TABLET PO PRN (22:31)
[2021-08-10] MEDS: MAG HYDROX/AL HYDROX/SIMETH 30 ML UNIT-DOSE CUP PO PRN ×2 (05:09→22:43)
[2021-08-10] MEDS: diazePAM 5 MG TABLET PO PRN (05:17)
[2021-08-10] MEDS: hydrOXYzine PAMOATE 25 MG CAPSULE (FP) PO PRN ×4 (05:17→22:44)
[2021-08-10] MEDS ORDERED: methaDONE HCL 10 MG TABLET (FOR DETOX USE ONLY) ONE (08:50)
[2021-08-10] MEDS: PRENATAL VITAMINS W/ FOLIC ACID TABLET (FP) PO SCH (10:32)
[2021-08-10] MEDS ORDERED: ALBUTEROL SO4 HFA INHALER IH PRN (13:52)
[2021-08-10] MEDS: BICTEGRAV/EMTRICIT/TENOFOV (BIKTARVY) 50-200-25 MG TABLET PO SCH (15:37)
[2021-08-10] MEDS: IBUPROFEN 400 MG TABLET (FP) PO PRN (18:18)
[2021-08-10] MEDS: QUEtiapine FUMARATE 100 MG TABLET (FP) PO SCH (22:43)
[2021-08-10] MEDS: THIAMINE HCL 100 MG TABLET (FP) PO SCH (22:43)
[2021-08-11] MEDS ORDERED: methaDONE HCL 10 MG TABLET (FOR DETOX USE ONLY) PO ONE (10:00)
[2021-08-11] MEDS: PRENATAL VITAMINS W/ FOLIC ACID TABLET (FP) PO SCH (11:05)
[2021-08-11] MEDS: hydrOXYzine PAMOATE 25 MG CAPSULE (FP) PO PRN ×3 (11:06→22:32)
[2021-08-11] MEDS ORDERED: NICOTINE 10 MG CARTRIDGE (INHALER) IH PRN (15:38)
[2021-08-11] MEDS: IBUPROFEN 400 MG TABLET (FP) PO PRN (17:26)
[2021-08-11] MEDS: QUEtiapine FUMARATE 100 MG TABLET (FP) PO SCH (22:32)
[2021-08-11] MEDS: THIAMINE HCL 100 MG TABLET (FP) PO SCH (22:32)
[2021-08-11] MEDS: METHOCARBAMOL 500 MG TABLET PO PRN (22:32)
[2021-08-12] MEDS: BICTEGRAV/EMTRICIT/TENOFOV (BIKTARVY) 50-200-25 MG TABLET PO SCH (07:39)
[2021-08-12 08:40] VITALS: BP 124/77; PULSE 69; TEMP 96.4
== END 2021-08-12 09:31 | disposition home or self-care (01) | DRG 773 ==
LOC: YASAS 10:23 → UNDOADMIN 16:59 → Y3N 16:59
PROVIDERS: ADMIT Allergy & Immunology; ATTEND Allergy & Immunology
PROC: HZ2ZZZZ Detoxification Services for Substance Abuse Treatment (ICD-10-PCS; principal; 2021-08-06)
DX: F11.23 Opioid dependence with withdrawal (principal); F11.220 Opioid dependence with intoxication, uncomplicated; F10.20 Alcohol dependence, uncomplicated; F14.20 Cocaine dependence, uncomplicated; F12.20 Cannabis dependence, uncomplicated; F17.210 Nicotine dependence, cigarettes, uncomplicated; F31.9 Bipolar disorder, unspecified; F19.24 Other psychoactive substance dependence with psychoactive substance-induced mood disorder; F19.282 Other psychoactive substance dependence with psychoactive substance-induced sleep disorder; F19.280 Other psychoactive substance dependence with psychoactive substance-induced anxiety disorder; J45.20 Mild intermittent asthma, uncomplicated; Z21 Asymptomatic human immunodeficiency virus [HIV] infection status; E86.0 Dehydration; E05.90 Thyrotoxicosis, unspecified without thyrotoxic crisis or storm; H54.8 Legal blindness, as defined in USA; R00.1 Bradycardia, unspecified; Z62.810 Personal history of physical and sexual abuse in childhood; Z91.013 Allergy to seafood; Z56.0 Unemployment, unspecified; Z59.00 Homelessness unspecified
CPT/HCPCS: 36415; 80053; 85027; 86780; C9803-CS; U0003; U0005

== ENCOUNTER 2023-06-16 12:47 | Inpatient (IN) | payer OTHER ==
[2023-06-16 14:09] VITALS: RESP 18; BMI 25.7
[2023-06-16] MEDS ORDERED: ALBUTEROL SO4 HFA INHALER IH PRN (16:24)
[2023-06-16] MEDS ORDERED: BENZOCAINE/MENTHOL (CHLORASEPTIC ) LOZENGE MM PRN (17:35)
[2023-06-16] MEDS ORDERED: guaiFENesin 600 MG TABLET.ER (FP) PO PRN (17:35)
[2023-06-16] MEDS ORDERED: P-EPHED 60MG/TRIPROLIDI 2.5MG TABLET PO PRN (17:35)
[2023-06-16] MEDS ORDERED: COLLOIDAL OATMEAL 1 BAR EACH TP PRN (17:35)
[2023-06-16] MEDS ORDERED: LOPERAMIDE HCL 2 MG CAPSULE PO PRN (17:35)
[2023-06-16] MEDS ORDERED: NICOTINE POLACRILEX 2 MG GUM BUC PRN (17:35)
[2023-06-16] MEDS ORDERED: NALOXONE HCL 0.4 MG/ML VIAL IM PRN (17:35)
[2023-06-16] MEDS ORDERED: POLYETHYLENE GLYCOL (HEALTHYLAX) 3350 17 GM PACKET PO PRN (17:35)
[2023-06-16] MEDS ORDERED: NALOXONE HCL (KLOXXADO) 8 MG SPRAY NS PRN (17:35)
[2023-06-16] MEDS ORDERED: BENZONATATE 200 MG CAPSULE PO PRN (17:35)
[2023-06-16] MEDS ORDERED: ACETAMINOPHEN 325 MG TABLET (FP) PO PRN (17:35)
[2023-06-16] MEDS ORDERED: MAGNESIUM HYDROX 2400MG/30ML ORAL SUSPENSION 30 ML CUP PO PRN (17:35)
[2023-06-16] MEDS ORDERED: MAG HYDROX/AL HYDROX/SIMETH 30 ML UNIT-DOSE CUP PO PRN (17:35)
[2023-06-16] MEDS ORDERED: TUBERCULIN PPD 5 TU/0.1ML SYRINGE (IN PATIENT USE ONLY) ID ONE (21:37)
[2023-06-16] MEDS: MELATONIN 5 MG TABLETS PO SCH (22:50)
[2023-06-16] MEDS: THIAMINE HCL 100 MG TABLET (FP) PO SCH (22:50)
[2023-06-16] MEDS: TIOTROPIUM BROMIDE 2.5 MCG (SPIRIVA) RESPIMAT INHALER IH SCH (22:51)
[2023-06-17] MEDS ORDERED: methaDONE HCL 10 MG TABLET PO ONE ×2 (08:26→13:48)
[2023-06-17] MEDS: hydrOXYzine PAMOATE 25 MG CAPSULE (FP) PO PRN ×2 (09:34→21:52)
[2023-06-17] MEDS: IBUPROFEN 600 MG TABLET (FP) PO PRN ×2 (09:34→21:52)
[2023-06-17] MEDS: PRENATAL VITAMINS W/ FOLIC ACID TABLET (FP) PO SCH (09:34)
[2023-06-17] MEDS: TIOTROPIUM BROMIDE 2.5 MCG (SPIRIVA) RESPIMAT INHALER IH SCH (09:36)
[2023-06-17] MEDS ORDERED: METHOCARBAMOL 500 MG TABLET PO PRN (13:51)
[2023-06-17] MEDS ORDERED: cloNIDine HCL 0.1 MG TABLET PO PRN (13:52)
[2023-06-17] MEDS ORDERED: DICYCLOMINE HCL 10 MG CAPSULE PO PRN (14:24)
[2023-06-17] MEDS ORDERED: ONDANSETRON *ODT* 4 MG TABLET SL PRN (14:24)
[2023-06-17] MEDS ORDERED: BISMUTH SUBSALICYLATE 262 MG/15 ML BTL PO PRN (14:24)
[2023-06-17] MEDS: MELATONIN 5 MG TABLETS PO SCH (21:51)
[2023-06-17] MEDS: QUEtiapine FUMARATE 100 MG TABLET (FP) PO SCH (21:51)
[2023-06-17] MEDS: THIAMINE HCL 100 MG TABLET (FP) PO SCH (21:52)
[2023-06-17] MEDS: METHOCARBAMOL 500 MG TABLET PO PRN (21:52)
[2023-06-17] MEDS ORDERED: QUEtiapine FUMARATE 100 MG TABLET (FP) PO PRN (22:00)
[2023-06-18] MEDS ORDERED: methaDONE HCL 40 MG DISPERSABLE TABLET PO SCH (06:00)
[2023-06-18] MEDS: IBUPROFEN 400 MG TABLET (FP) PO PRN ×2 (08:01→21:12)
[2023-06-18] MEDS: METHOCARBAMOL 500 MG TABLET PO PRN ×2 (08:01→21:12)
[2023-06-18] MEDS: hydrOXYzine PAMOATE 25 MG CAPSULE (FP) PO PRN ×2 (08:01→21:12)
[2023-06-18] MEDS: TIOTROPIUM BROMIDE 2.5 MCG (SPIRIVA) RESPIMAT INHALER IH SCH (10:17)
[2023-06-18] MEDS: PRENATAL VITAMINS W/ FOLIC ACID TABLET (FP) PO SCH (10:17)
[2023-06-18] MEDS: BICTEGRAV/EMTRICIT/TENOFOV (BIKTARVY) 50-200-25 MG TABLET PO SCH (12:15)
[2023-06-18] MEDS: IBUPROFEN 600 MG TABLET (FP) PO PRN (15:27)
[2023-06-18] MEDS: MELATONIN 5 MG TABLETS PO SCH (21:10)
[2023-06-18] MEDS: QUEtiapine FUMARATE 100 MG TABLET (FP) PO SCH (21:10)
[2023-06-18] MEDS: THIAMINE HCL 100 MG TABLET (FP) PO SCH (21:10)
[2023-06-19] MEDS: hydrOXYzine PAMOATE 25 MG CAPSULE (FP) PO PRN ×2 (07:37→21:08)
[2023-06-19] MEDS: METHOCARBAMOL 500 MG TABLET PO PRN ×3 (07:37→21:08)
[2023-06-19] MEDS: IBUPROFEN 600 MG TABLET (FP) PO PRN ×2 (07:37→13:42)
[2023-06-19] MEDS: BICTEGRAV/EMTRICIT/TENOFOV (BIKTARVY) 50-200-25 MG TABLET PO SCH (07:39)
[2023-06-19] MEDS ORDERED: methaDONE 40 MG, methaDONE 10 MG PO ONE (08:45)
[2023-06-19] MEDS ORDERED: methaDONE HCL 10 MG TABLET PO ONE (08:46)
[2023-06-19] MEDS: PRENATAL VITAMINS W/ FOLIC ACID TABLET (FP) PO SCH (09:19)
[2023-06-19] MEDS: TIOTROPIUM BROMIDE 2.5 MCG (SPIRIVA) RESPIMAT INHALER IH SCH (09:19)
[2023-06-19] MEDS: THIAMINE HCL 100 MG TABLET (FP) PO SCH (21:08)
[2023-06-19] MEDS: MELATONIN 5 MG TABLETS PO SCH (21:08)
[2023-06-19] MEDS: QUEtiapine FUMARATE 100 MG TABLET (FP) PO SCH (21:08)
[2023-06-20] MEDS ORDERED: methaDONE 40 MG, methaDONE 10 MG PO SCH (06:00)
[2023-06-20] MEDS ORDERED: methaDONE HCL 10 MG TABLET PO SCH (06:00)
[2023-06-20] MEDS: hydrOXYzine PAMOATE 25 MG CAPSULE (FP) PO PRN (06:22)
[2023-06-20] MEDS: IBUPROFEN 400 MG TABLET (FP) PO PRN (06:23)
[2023-06-20] MEDS: BICTEGRAV/EMTRICIT/TENOFOV (BIKTARVY) 50-200-25 MG TABLET PO SCH (07:01)
[2023-06-20 07:06] VITALS: BP 120/90; PULSE 65; TEMP 98.2
[2023-06-20] MEDS: METHOCARBAMOL 500 MG TABLET PO PRN (10:04)
[2023-06-20] MEDS: TIOTROPIUM BROMIDE 2.5 MCG (SPIRIVA) RESPIMAT INHALER IH SCH (10:04)
[2023-06-20] MEDS: PRENATAL VITAMINS W/ FOLIC ACID TABLET (FP) PO SCH (10:04)
[2023-06-20 10:43] LABS: POTASSIUM 4.3 mmol/L (3.5-5.1)
[2023-06-20 10:45] LABS: ALBUMIN 3.4 g/dl (3.4-5.0); BASO % 0.6 % (0-2.0); BLOOD UREA NITROGEN 9.2 mg/dL (7-18); CALCIUM 8.9 mg/dL (8.5-10.1); EOS % 3.6 % (0-4.5); HEMATOCRIT 40.1 % (35.4-49); HEMOGLOBIN 12.9 GM/dL (11.7-16.9); LYMPH % 38.9 % (8-40); MCH 28.5 pg (25.7-33.7); MCHC 32.2 g/dl (32.0-35.9); MEAN CELL VOLUME 88.5 fl (80-96); MEAN PLT VOLUME 8.9 fl (7.5-11.1); MONO % 8.4 % (3.8-10.2); NEUT % 48.5 % (42.8-82.8); PLATELET COUNT 382 10^3/uL (134-434); RBC 4.53 M/mm3 (4.00-5.60); RDW 13.6 % (11.9-15.9); WHITE BLOOD COUNT 5.7 K/mm3 (4.0-10.0)
[2023-06-20 10:50] LABS: PH,URINE 7.5 (5.0-8.0); URINE APPEARANCE CLEAR; URINE BILIRUBIN NEGATIVE (NEGATIVE); URINE COLOR YELLOW; URINE GLUCOSE (UA) NEGATIVE (NEGATIVE); URINE KETONE NEGATIVE (NEGATIVE); URINE LEUK ESTERASE NEGATIVE (NEGATIVE); URINE NITRITE NEGATIVE (NEGATIVE); URINE PROTEIN NEGATIVE (NEGATIVE); URINE UROBILINOGEN 0.2 mg/dL (0.2-1.0)
[2023-06-20 10:51] LABS: BILIRUBIN,TOTAL 0.2 mg/dL (0.2-1); TOT PROT 7.5 g/dl (6.4-8.2)
[2023-06-20] MEDS: IBUPROFEN 600 MG TABLET (FP) PO PRN (13:07)
[2023-06-20] MEDS ORDERED: LACTULOSE 20 GM/30 ML UDC (FOR ORAL USE ONLY) PO SCH (14:15)
[2023-06-20] MEDS ORDERED: GABAPENTIN 100 MG CAPSULE PO SCH (14:38)
[2023-06-20] MEDS ORDERED: TUBERCULIN PPD 5 TU/0.1ML VIAL ID ONE (15:19)
[2023-06-22] MEDS ORDERED: methaDONE 40 MG, methaDONE 20 MG PO SCH (06:00)
[2023-06-22] MEDS ORDERED: methaDONE HCL 10 MG TABLET PO SCH (06:00)
== END 2023-06-20 16:30 | disposition left against medical advice (07) | DRG 770 ==
LOC: YASAS 12:47 → Y5N 18:04
PROVIDERS: ADMIT Allergy & Immunology; ATTEND Psychiatry & Neurology Pain Medicine
PROC: HZ42ZZZ Group Counseling for Substance Abuse Treatment, Cognitive-Behavioral (ICD-10-PCS; principal; 2023-06-16)
DX: F11.23 Opioid dependence with withdrawal (principal); F14.20 Cocaine dependence, uncomplicated; F17.210 Nicotine dependence, cigarettes, uncomplicated; F19.282 Other psychoactive substance dependence with psychoactive substance-induced sleep disorder; F19.280 Other psychoactive substance dependence with psychoactive substance-induced anxiety disorder; F31.9 Bipolar disorder, unspecified; F39 Unspecified mood [affective] disorder; Z21 Asymptomatic human immunodeficiency virus [HIV] infection status; E72.20 Disorder of urea cycle metabolism, unspecified; G62.9 Polyneuropathy, unspecified; Z62.810 Personal history of physical and sexual abuse in childhood; Z91.199 Patient's noncompliance with other medical treatment and regimen due to unspecified reason
CPT/HCPCS: 36415; 80053; 81003; 82140; 85025; 86803; 87635; 93005; 93010